=== PATIENT | male | born 1965 | race Caucasian/White ===

== ENCOUNTER 2020-02-13 14:37 | Emergency (ER) | payer OTHER, SELFPAY ==
[2020-02-13 14:42] VITALS: BP 221/108; PULSE 83; RESP 18; TEMP 37.6; O2SAT 96
--- NOTE | 2020-02-13 15:54 | DI.US.S_ITS ---
PROCEDURE: US EXTREMELY NONVASC UPPER RT INDICATIONS: RIGHT AXILLA ABSCESS TECHNIQUE: Real-time scanning was performed of the right upper arm, with image documentation. COMPARISON: None. FINDINGS: No abscess identified. Soft tissue edema noted in the region of previously drained abscess involving the right upper arm lateral and inferior to the axilla concerning for infection cellulitis. IMPRESSION: No abscess. Dictated by: Janette Garcia MD, PhD on 02/13/2020 at 16:44 Approved by: Janette Garcia MD, PhD on 02/13/2020 at 16:45
--- NOTE | 2020-02-13 16:09 | ED.SKABFB ---
HPI - Skin/Abscess/Foreign Bdy <NATE Frakn - Last Filed: 02/13/20 18:40> General Chief complaint: Skin/Abscess/Foreign Body Stated complaint: Growth under his right armpit Time Seen by Provider: 02/13/20 15:16 Source: patient Mode of arrival: Ambulatory History of Present Illness HPI narrative: 54 year old male with a history of hypertension and renal calculi (also states ?my temperature is always 100F I have had so many tests done but its always been that way) presents emergency department complaining of an abscess to right axillary area. He states this started about 4-5 days ago, he has been trying to pop the area in drain it without success. A month or so ago he had an abscess that developed in the area, he was treated by Dermatology with an I & D. Patient denies any other symptoms such as fevers, chills, nausea, vomiting, diarrhea, chest pain, shortness of breath, or any other concerns. Patient denies taking any blood thinners. He states he was told to be seen at the [place] but does not want to drive that far. Patient states he was recently taking antibiotics for his foot, he reports that this started when he was taking antibiotics in significantly worsened once the prescription was finished 2-3 days ago. Patient states his blood pressure is usually high , he is due for his blood pressure medication at the time. Related Data Home Medications Medication Instructions Recorded Confirmed amlodipine 10 mg PO DAILY 02/13/20 02/13/20 atorvastatin 40 mg PO BEDTIME 02/13/20 02/13/20 duloxetine 60 mg PO BID 02/13/20 02/13/20 hydrochlorothiazide 25 mg PO BID 02/13/20 02/13/20 omeprazole 20 mg PO BID 02/13/20 02/13/20 oxycodone-acetaminophen [Percocet] 1 tab PO Q4-6H PRN 02/13/20 02/13/20 Previous Rx's Medication Instructions Recorded doxycycline hyclate 100 mg PO BID 7 Days #14 cap 02/13/20 Allergies Allergy/AdvReac Type Severity Reaction Status Date / Time Penicillins Allergy Severe Anaphylaxis Verified 02/13/20 14:51 Review of Systems <NATE Frank - Last Filed: 02/13/20 18:40> Review of Systems Narrative: REVIEW OF SYSTEMS: GENERAL: Denies fever or chills. HENT: Denies head trauma. EYE: Denies double vision or vision loss. CARDIOVASCULAR: Denies syncope. MUSCULOSKELETAL: Denies weakness, or deformities. INTEGUMENTARY: Complains of abscess to right axillary area, see HPI. NEURO: Denies numbness or tingling. Patient History <NATE Frank - Last Filed: 02/13/20 18:40> Medical History Hypertension (Acute) Social History Smoking Status: Never smoker Smoking Status: Never smoker alcohol intake frequency: 0-2 drinks per day Substance Use Type: does not use Exam <NATE Frank - Last Filed: 02/13/20 18:40> Initial Vital Signs Initial Vital Signs: Vital Signs Temperature 99.6 F 02/13/20 14:42 Pulse Rate 83 02/13/20 14:42 Respiratory Rate 18 02/13/20 14:42 Blood Pressure 221/108 H 02/13/20 14:42 Pulse Oximetry 96 02/13/20 14:42 PHYSICAL EXAMINATION: GENERAL: Well groomed, alert, and cooperative. Answers questions promptly and appropriately. Vital signs noted. HENT: Normocephalic, atraumatic. RESPIRATORY: Normal respiratory rate, trachea midline, airway patent. No stridor, nasal flaring or accessory muscle use. MUSCULOSKELETAL: Normal gait and coordination. Equal tone and mass bilaterally. EXTREMITIES: CMS intact. Moves all extremities. SKIN: Warm, dry, soft, appropriate color for ethnicity. There is a large area of induration approximately 10 cm x 8 cm noted to right axillary area, increased temp, tenderness, and erythema. NEURO: Alert and Oriented X 3. Good coordination. PSYCH: Appropriate affect and mood. <Jarrod Crump MD - Last Filed: 02/13/20 19:42> Initial Vital Signs Initial Vital Signs: Vital Signs Temperature 99.6 F 02/13/20 14:42 Pulse Rate 83 02/13/20 14:42 Respiratory Rate 18 02/13/20 14:42 Blood Pressure 221/108 H 02/13/20 14:42 Pulse Oximetry 96 02/13/20 14:42 Course <NATE Frank - Last Filed: 02/13/20 18:40> Course Course Narrative: Ultrasound performed to assess extent of abscess. No abscess visualized. This medication given in the emergency department. Orders Ordered: ED Orders 02/13/20 15:54 US extremity nonvasc upper rt Stat Discontinued Medications Doxycycline Hyclate (Vibramycin) 100 mg PO NOW ONE Stop: 02/13/20 17:03 Last Admin: 02/13/20 17:06 Dose: 100 mg Documented by: COLIN Vital Signs Vital signs: Vital Signs - 8 hr 02/13/20 14:42 02/13/20 17:09 02/13/20 17:38 Temperature 99.6 F Pulse Rate 83 78 Respiratory Rate 18 18 Blood Pressure 221/108 H Blood Pressure [Left Arm] 200/106 H 207/108 H Pulse Oximetry 96 97 02/13/20 17:56 Temperature Pulse Rate Respiratory Rate Blood Pressure 193/104 H Blood Pressure [Left Arm] Pulse Oximetry <Jarrod Crump MD - Last Filed: 02/13/20 19:42> Orders Ordered: ED Orders 02/13/20 15:54 US extremity nonvasc upper rt Stat Discontinued Medications Doxycycline Hyclate (Vibramycin) 100 mg PO NOW ONE Stop: 02/13/20 17:03 Last Admin: 02/13/20 17:06 Dose: 100 mg Documented by: COLIN Vital Signs Vital signs: Vital Signs - 8 hr 02/13/20 14:42 02/13/20 17:09 02/13/20 17:38 Temperature 99.6 F Pulse Rate 83 78 Respiratory Rate 18 18 Blood Pressure 221/108 H Blood Pressure [Left Arm] 200/106 H 207/108 H Pulse Oximetry 96 97 02/13/20 17:56 Temperature Pulse Rate Respiratory Rate Blood Pressure 193/104 H Blood Pressure [Left Arm] Pulse Oximetry MDM - Skin/Abscess/Foreign Bdy <NATE Frank - Last Filed: 02/13/20 18:40> Medical Records Attestation: I reviewed the patient's medical records. Lab Data Attestation: I reviewed the patient's lab results. Imaging Data Extremity x-ray #1: Radiologist's Impression: [address] [address] Ultrasound Report Signed Patient: Tera Lee#: [id number] : 1965Acct:[id number] Age/Sex: 54 / MDate of Service: 02/13/20 Loc: ED Accession Number: [id number] Procedure: US extremity nonvasc upper rt Ordering Provider: Deborah Phoenix PROCEDURE: US EXTREMELY NONVASC UPPER RT INDICATIONS: RIGHT AXILLA ABSCESS TECHNIQUE: Real-time scanning was performed of the right upper arm, with image documentation. COMPARISON: None. FINDINGS: No abscess identified. Soft tissue edema noted in the region of previously drained abscess involving the right upper arm lateral and inferior to the axilla concerning for infection cellulitis. IMPRESSION: No abscess. Dictated by: Janette Garcia MD, PhD on 02/13/2020 at 16:44 Approved by: Janette Garcia MD, PhD on 02/13/2020 at 16:45 [facility] Narrative Medical decision making narrative: 54-year-old male with a history of chronic hypertension reports emergency department for redness and swelling to right axillary area. Patient had history and previous I&D of this area. It was initially difficult to identify fluctuation due to body habitus and subcutaneous tissue. Ultrasound was performed which did not show any abscess or fluid accumulation. Due to appearance of swelling and erythema, I suspect this is most likely cellulitis. After discussion with patient, patient was given oral antibiotics. He was not tachycardic and afebrile (despite patient states that his temperature is usually 100 F). He was well-appearing and hemodynamically stable. Patient did have elevated blood pressure in the emergency department, he states his blood pressure is usually elevated, he is due for his blood pressure medications. He was not symptomatic denies any headaches or chest pain. Patient was discharged with medications as prescribed. Patient was given very strict return precautions for any new or worsening symptoms. He agreed to plan of care verbalized understanding. Discharge Plan Departure Patient Disposition: Home Clinical Impression: Cellulitis Qualifiers: Site of cellulitis: extremity Site of cellulitis of extremity: upper extremity Laterality: right Qualified Code(s): L03.113 - Cellulitis of right upper limb Discharge Date/Time: 02/13/20 17:57 Instructions: DI for Cellulitis -- Adult Activity Restrictions/Additional Instructions: Thank you for entrusting me with your care today. As discussed, there is no abscess to drain. You have an infection that is within your cells and can be treated with antibiotics. Please take these as directed. Follow-up with your primary care provider in the next week for further evaluation and discussion of continued management if symptoms continue. Return to the emergency department immediately if you develop worsening symptoms such as increased redness, increased swelling, severe pain, fevers, uncontrollable vomiting, or any other concerns. Prescriptions: New doxycycline hyclate 100 mg capsule 100 mg PO BID 7 Days Qty: 14 RF: 0 No Action atorvastatin 40 mg Tablet 40 mg PO BEDTIME RF: 0 oxycodone-acetaminophen [Percocet] 5-325 mg Tablet 1 tab PO Q4-6H PRN (Reason: Pain (Scale Score 1-3)) RF: 0 amlodipine 10 mg Tablet 10 mg PO DAILY RF: 0 omeprazole 20 mg Capsule,Delayed Release(Dr/Ec) 20 mg PO BID RF: 0 hydrochlorothiazide 25 mg Tablet 25 mg PO BID RF: 0 duloxetine 60 mg Capsule,Delayed Release(Dr/Ec) 60 mg PO BID RF: 0
[2020-02-13] MEDS: DOXYCYCLINE HYCLATE 100 MG TABLET PO (17:06)
[2020-02-13 17:09] VITALS: BP 200/106; PULSE 78; RESP 18; O2SAT 97
[2020-02-13 17:38] VITALS: BP 207/108
[2020-02-13 17:56] VITALS: BP 193/104
== END 2020-02-13 17:57 | disposition home or self-care (01) ==
PROVIDERS: Emergency Provider Nurse Practitioner
DX: L03.113 Cellulitis of right upper limb (principal); L02.411 Cutaneous abscess of right axilla; I10 Essential (primary) hypertension
CPT/HCPCS: 76882; 99283

== ENCOUNTER 2020-02-15 14:24 | Inpatient (IN) | payer OTHER, SELFPAY ==
[2020-02-15 14:29] VITALS: BP 174/89; PULSE 89; RESP 20; TEMP 36.6; O2SAT 99
--- NOTE | 2020-02-15 15:27 | ED.SKABFB ---
HPI - Skin/Abscess/Foreign Bdy <Rosalba Harkins PA-C - Last Filed: 02/15/20 21:52> General Chief complaint: Skin/Abscess/Foreign Body Stated complaint: Growth under his right armpit. Still painful Time Seen by Provider: 02/15/20 14:44 Source: patient Mode of arrival: Ambulatory History of Present Illness HPI narrative: This is a tired-appearing 54-year-old male with a history of CVA with left-sided residual deficit who presents to the emergency department due to pain, redness and increased swelling in his right axilla, worsening since his ED visit and initiation of Anribiotics 2 days ago. He says that about 10 days ago he developed a spot the size of a hansen tomato under his right armpit that was tender and painful, on Thursday his put a needle in it and tried to drain it, but that seemed to ?just piss it off? and Thursday he came to the emergency department because it was growing in size and had become more painful. He stated that he was started on antibiotics for this, because no pocket of pus was found to drain. Since that time it has continued to grow in size, he thinks that is about 3 times the size it was when he 1st noticed it 10 days ago, there is also a mass underneath the reddened skin and he says that he thinks that this mass has definitely gotten bigger even in the last 24 hours. His marked the outline of the red area last night around 5pm and it has grown outside of this in the last 18 hrs. He reports he fairly recently had a non profit financial controller drain a small abscess in the same area using a round thing that pressed in and took some skin out and then they used special q-tips to make it stop growing. He endorses some low-grade fevers for the last couple of days on and off as well as some mild generalized body aches that he has been experiencing since Thursday, 3 days ago. He denies any other symptoms. MD complaint: rash, abscess/boil and discoloration Onset (ago): day(s) (10) Location: RUE (axilla) Severity: moderate Pain Consistency: constant Relieving factors: none Exacerbating factors: other (poking it with needle to try draining) Treatments prior to arrival: attempted to drain pus at home (on thursday) Related Data Home Medications Medication Instructions Recorded Confirmed amlodipine 10 mg PO DAILY 02/13/20 02/15/20 atorvastatin 40 mg PO BEDTIME 02/13/20 02/15/20 hydrochlorothiazide 25 mg PO BID 02/13/20 02/15/20 omeprazole 20 mg PO BID 02/13/20 02/15/20 oxycodone-acetaminophen [Percocet] 1 tab PO Q4-6H PRN 02/13/20 02/15/20 colchicine 0.6 mg PO DAILY PRN 02/15/20 02/15/20 potassium citrate 20 meq PO TID PRN 02/15/20 02/15/20 Previous Rx's Medication Instructions Recorded doxycycline hyclate 100 mg PO BID 7 Days #14 cap 02/13/20 Allergies Allergy/AdvReac Type Severity Reaction Status Date / Time Penicillins Allergy Severe Anaphylaxis Verified 02/13/20 14:51 Review of Systems <Rosalba Harkins PA-C - Last Filed: 02/15/20 21:52> Review of Systems Narrative: GENERAL: Positive for intermittent low fever for 3 days, Denies chills, fatigue, malaise, sweats. HEENT: Denies sinus pain, ear pain, sore throat, difficulty swallowing, dizziness. RESPIRATORY: Denies dyspnea, cough, wheezing, hemoptysis, sputum. CARDIOVASCULAR: Denies chest pain, palpitations, orthopnea, edema, GASTROINTESTINAL: Denies nausea, vomiting, abdominal pain, diarrhea, constipation, melena. : Denies dysuria, frequency, incontinence, hematuria, urinary retention. MUSCULOSKELETAL: denies weakness, joint pain, or bony pain SKIN: Positive for pain swelling, mass and skin redness under his right arm in the axillary area that is growing in size. NEUROLOGIC: Denies weakness, headache, numbness, change in speech, confusion, seizures, incoordination. PSYCHIATRIC: No concerning psychosocial issues. 12 point review of systems is negative except for those stated above Patient History <Rosalba Harkins PA-C - Last Filed: 02/15/20 21:52> Medical History CVA (cerebral vascular accident) (Acute) Gout (Acute) Hemiparesis affecting left side as late effect of cerebrovascular accident (CVA) (Acute) Hyperlipidemia (Acute) Hypertension (Acute) Kidney stones (Acute) Obesity (BMI 30.0-34.9) (Acute) Trigeminal neuralgia (Acute) Surgical History History of excision of mass (Acute) History of excision of pilonidal cyst (Acute) History of incision and drainage (Acute) Status post gastric bypass for obesity (Acute) Family History Father Stroke Dementia Mother Cancer Social History household members: spouse Smoking Status: Never smoker Smoking Status: Never smoker alcohol intake frequency: 0-2 drinks per day Substance Use Type: does not use Exam <Rosalba Harkins PA-C - Last Filed: 02/15/20 21:52> Narrative Exam Narrative: GENERAL: 54 year old patient appears stated age. Well-nourished, obese, in mild distress. HEAD: Atraumatic. Normocephalic. EYES: Pupils equal round and reactive. Extraocular motions intact. No scleral icterus. No injection or drainage. ENT: Nose without bleeding, purulent drainage. Throat without erythema, tonsillar hypertrophy or exudate. Airway patent. NECK: Trachea midline. Non tender CARDIOVASCULAR: Regular rate and rhythm without murmurs, gallops, or rubs. RESPIRATORY: Clear to auscultation. Breath sounds equal bilaterally. No wheezes, rales, or rhonchi. GASTROINTESTINAL: Abdomen soft, non-tender, nondistended. EXTREMITIES: No edema or joint tenderness. BACK: Nontender without deformity or crepitance. No flank tenderness. NEURO: AOx3. Chronic residual neurologic deficits on the left side of his body with diminished arm use on the left, and left leg brace. SKIN: There is an area of erythema with irregular borders approximately 8 cm x 15 cm on the anterolateral chest wall just below the right axilla. There is an associated mass deep to the area of erythema that is approximately 15 cm x 8 cm x 4 cm by palpation and it is extremely tender. Initial Vital Signs Initial Vital Signs: Vital Signs Temperature 97.9 F 02/15/20 14:29 Pulse Rate 89 02/15/20 14:29 Respiratory Rate 20 02/15/20 14:29 Blood Pressure 174/89 H 02/15/20 14:29 Pulse Oximetry 99 02/15/20 14:29 <Marixa Shipley DO - Last Filed: 02/17/20 07:28> Initial Vital Signs Initial Vital Signs: Vital Signs Temperature 97.9 F 02/15/20 14:29 Pulse Rate 89 02/15/20 14:29 Respiratory Rate 20 02/15/20 14:29 Blood Pressure 174/89 H 02/15/20 14:29 Pulse Oximetry 99 02/15/20 14:29 Course <Rosalba Harkins PA-C - Last Filed: 02/15/20 21:52> Course Decision to Admit Date: 02/15/20 Decision to Admit time: 17:33 Orders Ordered: Acetaminophen (Tylenol) 975 mg PO Q8H [facility] Last Admin: 02/17/20 05:44 Dose: 975 mg Documented by: Admin: 02/16/20 20:50 Dose: 975 mg Documented by: Admin: 02/16/20 13:37 Dose: 975 mg Documented by: Admin: 02/16/20 05:35 Dose: 975 mg Documented by: Admin: 02/15/20 22:01 Dose: 975 mg Documented by: ROBERT Al Hydrox/Mg Hydrox/Simethicone (Maalox Plus) 30 ml PO Q6HR PRN PRN Reason: Dyspepsia Amlodipine Besylate (Norvasc) 10 mg PO DAILY [facility] Last Admin: 02/16/20 08:43 Dose: 10 mg Documented by: CHARLI Atorvastatin Calcium (Lipitor) 40 mg PO BEDTIME [facility] Last Admin: 02/16/20 20:43 Dose: 40 mg Documented by: Admin: 02/15/20 22:02 Dose: 40 mg Documented by: ROBERT Bisacodyl (Dulcolax) [address] DAILY PRN PRN Reason: Constipation Calcium Carbonate (Tums) 1,000 mg PO Q4HR PRN PRN Reason: Dyspepsia Docusate Sodium (Colace) 100 mg PO BID PRN PRN Reason: Constipation Hydrochlorothiazide (Hydrochlorothiazide) 25 mg PO BID [facility] Last Admin: 02/16/20 20:43 Dose: 25 mg Documented by: Admin: 02/16/20 08:43 Dose: 25 mg Documented by: CHARLI Vancomycin HCl/Dextrose (Vancomycin) 1,500 mg in 300 mls @ 200 mls/hr IV Q12H [facility] Last Infusion: 02/16/20 20:48 Dose: 100 mls/hr Documented by: Admin: 02/16/20 17:25 Dose: 100 mls/hr Documented by: Infusion: 02/16/20 13:38 Dose: 0 mls/hr Documented by: Admin: 02/16/20 05:56 Dose: 200 mls/hr Documented by: MAYI Ceftriaxone Sodium/Dextrose (Rocephin) 2 gm in 50 mls @ 100 mls/hr IV Q24H [facility] Last Infusion: 02/16/20 22:52 Dose: 0 mls/hr Documented by: Admin: 02/16/20 20:43 Dose: 100 mls/hr Documented by: ROBERT Lactated Ringer's (Lactated Ringers) 1,000 mls @ 100 mls/hr IV CONT [facility] Last Admin: 02/17/20 05:47 Dose: 100 mls/hr Documented by: Infusion: 02/17/20 05:47 Dose: 100 mls/hr Documented by: Admin: 02/16/20 22:51 Dose: 100 mls/hr Documented by: ROBERT Labetalol HCl (Trandate) 10 mg IV Q4HR PRN PRN Reason: Hypertension Melatonin (Melatonin) 6 mg PO BEDTIME [facility] Last Admin: 02/16/20 22:51 Dose: 6 mg Documented by: Admin: 02/15/20 22:50 Dose: 6 mg Documented by: ROBERT Naloxone HCl (Narcan) 0.2 mg IV Q2MIN PRN PRN Reason: Opiate Reversal Ondansetron HCl (Zofran) 4 mg IV Q8HR PRN PRN Reason: Nausea And Vomiting Oxycodone HCl (Percolone) 5 mg PO Q6HR PRN PRN Reason: Pain, Moderate (4-6) Last Admin: 02/16/20 20:42 Dose: 5 mg Documented by: Admin: 02/16/20 13:38 Dose: 5 mg Documented by: Admin: 02/16/20 05:39 Dose: 5 mg Documented by: Admin: 02/15/20 22:01 Dose: 5 mg Documented by: ROBERT Oxycodone HCl (Percolone) 10 mg PO Q6HR PRN PRN Reason: Pain, Severe (7-10) Discontinued Medications Acetaminophen (Tylenol) 650 mg PO NOW ONE Stop: 02/15/20 15:32 Last Admin: 02/15/20 16:03 Dose: Not Given Documented by: MUNIRA Allopurinol (Zyloprim) 200 mg PO DAILY CORINNA Last Admin: 02/16/20 09:09 Dose: 200 mg Documented by: CHARLI Colchicine (Colcrys) 0.6 mg PO DAILY PRN PRN Reason: Gout Enoxaparin Sodium (Lovenox) 40 mg SUBCUT NOW ONE Stop: 02/16/20 16:07 Last Admin: 02/16/20 16:48 Dose: 40 mg Documented by: ROBERT Sodium Chloride (Normal Saline 0.9%) 500 mls @ 500 mls/hr IV BOLUS ONE Stop: 02/15/20 16:35 Last Infusion: 02/15/20 17:43 Dose: 0 mls/hr Documented by: Admin: 02/15/20 16:02 Dose: 500 mls/hr Documented by: MUNIRA Vancomycin HCl/Dextrose (Vancomycin) 2,000 mg in 400 mls @ 200 mls/hr IV NOW ONE Stop: 02/15/20 20:44 Last Infusion: 02/15/20 20:55 Dose: 0 mls/hr Documented by: Infusion: 02/15/20 20:01 Dose: 200 mls/hr Documented by: Admin: 02/15/20 18:54 Dose: 200 mls/hr Documented by: MUNRIA Ceftriaxone Sodium/Dextrose (Rocephin) 2 gm in 50 mls @ 100 mls/hr IV NOW ONE Stop: 02/15/20 19:08 Last Admin: 02/16/20 00:56 Dose: 100 mls/hr Documented by: MAYI Ibuprofen (Advil) 400 mg PO NOW ONE Stop: 02/15/20 15:32 Last Admin: 02/15/20 16:03 Dose: Not Given Documented by: MUNIRA Vancomycin HCl (Vancomycin Per Pharmacy) 1 request [facility] NOW ONE Stop: 02/15/20 18:33 Last Admin: 02/15/20 19:44 Dose: Not Given Documented by: COLIN Vancomycin HCl (Vancomycin Per Pharmacy) 1 request [facility] NOW ONE Stop: 02/17/20 05:31 Vital Signs Vital signs: Vital Signs - 8 hr 02/15/20 14:29 Temperature 97.9 F Pulse Rate 89 Respiratory Rate 20 Blood Pressure 174/89 H Pulse Oximetry 99 <Marixa Shipley DO - Last Filed: 02/17/20 07:28> Orders Ordered: Acetaminophen (Tylenol) 975 mg PO Q8H [facility] Last Admin: 02/17/20 05:44 Dose: 975 mg Documented by: Admin: 02/16/20 20:50 Dose: 975 mg Documented by: Admin: 02/16/20 13:37 Dose: 975 mg Documented by: Admin: 02/16/20 05:35 Dose: 975 mg Documented by: Admin: 02/15/20 22:01 Dose: 975 mg Documented by: ROBERT Al Hydrox/Mg Hydrox/Simethicone (Maalox Plus) 30 ml PO Q6HR PRN PRN Reason: Dyspepsia Amlodipine Besylate (Norvasc) 10 mg PO DAILY [facility] Last Admin: 02/16/20 08:43 Dose: 10 mg Documented by: CHARLI Atorvastatin Calcium (Lipitor) 40 mg PO BEDTIME [facility] Last Admin: 02/16/20 20:43 Dose: 40 mg Documented by: Admin: 02/15/20 22:02 Dose: 40 mg Documented by: ROBERT Bisacodyl (Dulcolax) [address] DAILY PRN PRN Reason: Constipation Calcium Carbonate (Tums) 1,000 mg PO Q4HR PRN PRN Reason: Dyspepsia Docusate Sodium (Colace) 100 mg PO BID PRN PRN Reason: Constipation Hydrochlorothiazide (Hydrochlorothiazide) 25 mg PO BID [facility] Last Admin: 02/16/20 20:43 Dose: 25 mg Documented by: Admin: 02/16/20 08:43 Dose: 25 mg Documented by: CHARLI Vancomycin HCl/Dextrose (Vancomycin) 1,500 mg in 300 mls @ 200 mls/hr IV Q12H [facility] Last Infusion: 02/16/20 20:48 Dose: 100 mls/hr Documented by: Admin: 02/16/20 17:25 Dose: 100 mls/hr Documented by: Infusion: 02/16/20 13:38 Dose: 0 mls/hr Documented by: Admin: 02/16/20 05:56 Dose: 200 mls/hr Documented by: MAYI Ceftriaxone Sodium/Dextrose (Rocephin) 2 gm in 50 mls @ 100 mls/hr IV Q24H [facility] Last Infusion: 02/16/20 22:52 Dose: 0 mls/hr Documented by: Admin: 02/16/20 20:43 Dose: 100 mls/hr Documented by: ROBERT Lactated Ringer's (Lactated Ringers) 1,000 mls @ 100 mls/hr IV CONT [facility] Last Admin: 02/17/20 05:47 Dose: 100 mls/hr Documented by: Infusion: 02/17/20 05:47 Dose: 100 mls/hr Documented by: Admin: 02/16/20 22:51 Dose: 100 mls/hr Documented by: ROBERT Labetalol HCl (Trandate) 10 mg IV Q4HR PRN PRN Reason: Hypertension Melatonin (Melatonin) 6 mg PO BEDTIME [facility] Last Admin: 02/16/20 22:51 Dose: 6 mg Documented by: Admin: 02/15/20 22:50 Dose: 6 mg Documented by: ROBERT Naloxone HCl (Narcan) 0.2 mg IV Q2MIN PRN PRN Reason: Opiate Reversal Ondansetron HCl (Zofran) 4 mg IV Q8HR PRN PRN Reason: Nausea And Vomiting Oxycodone HCl (Percolone) 5 mg PO Q6HR PRN PRN Reason: Pain, Moderate (4-6) Last Admin: 02/16/20 20:42 Dose: 5 mg Documented by: Admin: 02/16/20 13:38 Dose: 5 mg Documented by: Admin: 02/16/20 05:39 Dose: 5 mg Documented by: Admin: 02/15/20 22:01 Dose: 5 mg Documented by: ROBERT Oxycodone HCl (Percolone) 10 mg PO Q6HR PRN PRN Reason: Pain, Severe (7-10) Discontinued Medications Acetaminophen (Tylenol) 650 mg PO NOW ONE Stop: 02/15/20 15:32 Last Admin: 02/15/20 16:03 Dose: Not Given Documented by: MUNIRA Allopurinol (Zyloprim) 200 mg PO DAILY CORIN[facility] Last Admin: 02/16/20 09:09 Dose: 200 mg Documented by: CHARLI Colchicine (Colcrys) 0.6 mg PO DAILY PRN PRN Reason: Gout Enoxaparin Sodium (Lovenox) 40 mg SUBCUT NOW ONE Stop: 02/16/20 16:07 Last Admin: 02/16/20 16:48 Dose: 40 mg Documented by: ROBERT Sodium Chloride (Normal Saline 0.9%) 500 mls @ 500 mls/hr IV BOLUS ONE Stop: 02/15/20 16:35 Last Infusion: 02/15/20 17:43 Dose: 0 mls/hr Documented by: Admin: 02/15/20 16:02 Dose: 500 mls/hr Documented by: MUNIRA Vancomycin HCl/Dextrose (Vancomycin) 2,000 mg in 400 mls @ 200 mls/hr IV NOW ONE Stop: 02/15/20 20:44 Last Infusion: 02/15/20 20:55 Dose: 0 mls/hr Documented by: Infusion: 02/15/20 20:01 Dose: 200 mls/hr Documented by: Admin: 02/15/20 18:54 Dose: 200 mls/hr Documented by: MUNIRA Ceftriaxone Sodium/Dextrose (Rocephin) 2 gm in 50 mls @ 100 mls/hr IV NOW ONE Stop: 02/15/20 19:08 Last Admin: 02/16/20 00:56 Dose: 100 mls/hr Documented by: MAYI Ibuprofen (Advil) 400 mg PO NOW ONE Stop: 02/15/20 15:32 Last Admin: 02/15/20 16:03 Dose: Not Given Documented by: MUNIRA Vancomycin HCl (Vancomycin Per Pharmacy) 1 request [facility] NOW ONE Stop: 02/15/20 18:33 Last Admin: 02/15/20 19:44 Dose: Not Given Documented by: COLIN Vancomycin [facility] ([facility]acy) [facility] ONE Stop: 02/17/20 05:31 Vital Signs Vital signs: Vital Signs - 8 hr 02/15/20 14:29 Temperature 97.9 F Pulse Rate 89 Respiratory Rate 20 Blood Pressure 174/89 H Pulse Oximetry 99 MDM - Skin/Abscess/Foreign Bdy <Rosalba Harknis PA-C - Last Filed: 02/15/20 21:52> Differential Diagnosis Differential diagnosis: Likely abscess of skin or subcutaneous tissue and cellulitis Medical Records Attestation: I reviewed the patient's medical records. Lab Data Attestation: I reviewed the patient's lab results. Result diagrams: 02/17/20 06:28 02/17/20 06:28 Labs: Lab Results 02/15/20 02/15/20 02/15/20 Range/Units 15:50 15:50 15:50 WBC 8.7 (4.5-11.0) X10^3/uL RBC 4.60 (4.5-5.9) X10^6/uL Hgb 14.1 (13.5-17.5) g/dL Hct 40.8 L (41-53) % MCV 88.8 (80-100) fL MCH 30.6 (26-34) PG MCHC 34.4 (30-36) % RDW 13.0 (11.6-14.8) % Plt Count 208 (150-400) X10^3/uL Neut % (Auto) 75.5 H (50-75) % Lymph % (Auto) 13.0 L (25-40) % Holmes % (Auto) 9.3 (3-14) % Eos % (Auto) 1.3 L (2-4) % Baso % (Auto) 0.9 (0-2) % Neut # (Auto) 6600 (0815-5910) /uL Lymph # (Auto) 1100 (0889-9383) /uL Holmes # (Auto) 800 (0-900) /uL Eos # (Auto) 100 (0-450) /uL Baso # (Auto) 100 (0-100) /uL ESR (0-15) MM/HR Sodium 139 (137-145) mmol/L Potassium 3.9 (3.4-5.1) mmol/L Chloride 101 (98-107) mmol/L Carbon Dioxide 32 (22-32) mmol/L BUN 21 H (9-20) mg/dL Creatinine 1.23 (0.66-1.25) mg/dL Estimated GFR > 60.0 (>60) mL/min BUN/Creatinine Ratio 17.1 (6-22) Glucose 104 H (70-100) mg/dL Lactate (0.7-2.1) mmol/L Uric Acid (3.5-8.5) mg/dL Calcium 9.3 (8.4-10.2) mg/dL C-Reactive Protein (<1.0) mg/dL Procalcitonin 0.07 (<0.5) ng/mL 02/15/20 02/15/20 02/15/20 Range/Units 15:50 15:50 15:50 WBC (4.5-11.0) X10^3/uL RBC (4.5-5.9) X10^6/uL Hgb (13.5-17.5) g/dL Hct (41-53) % MCV (80-100) fL MCH (26-34) PG MCHC (30-36) % RDW (11.6-14.8) % Plt Count (150-400) X10^3/uL Neut % (Auto) (50-75) % Lymph % (Auto) (25-40) % Holmes % (Auto) (3-14) % Eos % (Auto) (2-4) % Baso % (Auto) (0-2) % Neut # (Auto) (1438-0691) /uL Lymph # (Auto) (2562-2980) /uL Holmes # (Auto) (0-900) /uL Eos # (Auto) (0-450) /uL Baso # (Auto) (0-100) /uL ESR 36 H (0-15) MM/HR Sodium (137-145) mmol/L Potassium (3.4-5.1) mmol/L Chloride (98-107) mmol/L Carbon Dioxide (22-32) mmol/L BUN (9-20) mg/dL Creatinine (0.66-1.25) mg/dL Estimated GFR (>60) mL/min BUN/Creatinine Ratio (6-22) Glucose (70-100) mg/dL Lactate 0.7 (0.7-2.1) mmol/L Uric Acid (3.5-8.5) mg/dL Calcium (8.4-10.2) mg/dL C-Reactive Protein 17.3 H (<1.0) mg/dL Procalcitonin (<0.5) ng/mL 02/15/20 Range/Units 15:50 WBC (4.5-11.0) X10^3/uL RBC (4.5-5.9) X10^6/uL Hgb (13.5-17.5) g/dL Hct (41-53) % MCV (80-100) fL MCH (26-34) PG MCHC (30-36) % RDW (11.6-14.8) % Plt Count (150-400) X10^3/uL Neut % (Auto) (50-75) % Lymph % (Auto) (25-40) % Holmes % (Auto) (3-14) % Eos % (Auto) (2-4) % Baso % (Auto) (0-2) % Neut # (Auto) (4556-1583) /uL Lymph # (Auto) (0863-5862) /uL Holmes # (Auto) (0-900) /uL Eos # (Auto) (0-450) /uL Baso # (Auto) (0-100) /uL ESR (0-15) MM/HR Sodium (137-145) mmol/L Potassium (3.4-5.1) mmol/L Chloride (98-107) mmol/L Carbon Dioxide (22-32) mmol/L BUN (9-20) mg/dL Creatinine (0.66-1.25) mg/dL Estimated GFR (>60) mL/min BUN/Creatinine Ratio (6-22) Glucose (70-100) mg/dL Lactate (0.7-2.1) mmol/L Uric Acid 9.6 H (3.5-8.5) mg/dL Calcium (8.4-10.2) mg/dL C-Reactive Protein (<1.0) mg/dL Procalcitonin (<0.5) ng/mL Imaging Data CT scan - chest: Attestation: I personally reviewed and interpreted this imaging study as follows: Radiologist's Impression: [address] [address] [address] Scan Report Signed Patient: Tera LeeMR#: [id number] : 1965Acct:[id number] Age/Sex: 54 / MDate of Service: 02/15/20 Loc: ED Accession Number: [id number] Procedure: CT chest w con Ordering Provider: Rosalba Harkins P.A-C PROCEDURE: CT CHEST W CON INDICATIONS: R axillary Mass, [id number] TECHNIQUE: After the administration of intravenous contrast, 5 mm thick sections acquired from the pulmonary apices to the posterior costophrenic angles. 1 mm axial lung, 5 mm thick coronal and sagittal reformats and 7 mm axial MIP were acquired. For radiation dose reduction, the following was used: automated exposure control, adjustment of mA and/or kV according to patient size. COMPARISON: [facility], CT, CT ANGIO CHEST, 10/30/2008, 20:18. FINDINGS: Image quality: Excellent. Lungs and pleura: No acute air space opacities. There is a new 4 mm subpleural nodule within the right lower lobe laterally. There is a new no 10 mm diameter nodule within the central portion of the right lower lobe. No pleural effusions or pneumothorax. Central and peripheral airways are patent and normal in caliber. Mediastinum: Heart size is normal. There is calcification of the coronary vasculature. No pericardial effusion. No mediastinal or hilar adenopathy by size criteria. Thoracic aorta and central pulmonary arteries are normal in size. Esophagus is normal in caliber. No hiatal hernia. Bones and chest wall: No suspicious bony lesions. No vertebral body compression fractures. No axillary or supraclavicular adenopathy by size criteria. There is incompletely visualized that stranding within the right lateral chest wall spanning at least 8 cm anteroposterior, consistent with inflammation versus infection. Thyroid gland is within normal limits. Abdomen: Visualized upper abdominal solid organs appear normal. Upper abdominal bowel loops are normal in caliber. IMPRESSION: 1. New right lung nodules as described above. Initial further assessment with PET CT examination is recommended. 2. Incompletely visualized fat stranding within the right lateral axillary region, consistent with inflammation versus infection. 3. Coronary artery disease. Dictated by: Clifford Ralph M.D. on 02/15/2020 at 16:50 Approved by: Clifford Ralph M.D. on 02/15/2020 at 16:54 [facility] Narrative Medical decision making narrative: This is a slightly tired appearing obese 54-year-old with a history significant for hypertension, sleep apnea and CVA with residual left-sided deficit who presents to the emergency department with a worsening cellulitis in mass of the right axilla for which he was seen 2 days prior in the ED. Ultrasound at that time did not reveal pocket of fluid, and he was treated as an outpatient with doxycycline. Since that time his area of erythema, size of mass, and pain have increased to the point where he has significant difficulty using his right arm. He has residual left-sided deficit which makes it difficult for him to do anything with the right axillary pain and swelling. The patient's description of an ?incision and drainage? 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 Low suspicion for sepsis based on vitals/Hx/exam. Low suspicion for hidradenitis. Concern for worsening cellulitis/abscess, formation of a phlegmon, and failure of outpatient antibiotic therapy. CT scan performed today was nonspecific/did not show clear evidence of an abscess but did show an area notable for infectious changes at the location consistent with the mass and erythema in the right axilla. Spoke with hospitalist Dr. Sullivan regarding admission for inpatient antibiotics as he has failed outpatient antibiotic therapy and seems to have worsening cellulitis with an associated mass. Dr. Hendrix who agreed to accept the patient and requested initiation of antibiotic therapy after cultures were drawn with vancomycin and Rocephin as well as a repeat axillary ultrasound which was ordered in the emergency department, and possible consult to surgery. Patient was advised of the plan and in agreement, admitted to hospitalist team for further treatment with IV antibiotics and further workup as needed. <Marixa Shipley, DO - Last Filed: 02/17/20 07:28> Lab Data Attestation: I reviewed the patient's lab results. Labs: Lab Results 02/15/20 02/15/20 02/15/20 Range/Units 15:50 15:50 15:50 WBC 8.7 (4.5-11.0) X10^3/uL RBC 4.60 (4.5-5.9) X10^6/uL Hgb 14.1 (13.5-17.5) g/dL Hct 40.8 L (41-53) % MCV 88.8 (80-100) fL MCH 30.6 (26-34) PG MCHC 34.4 (30-36) % RDW 13.0 (11.6-14.8) % Plt Count 208 (150-400) X10^3/uL Neut % (Auto) 75.5 H (50-75) % Lymph % (Auto) 13.0 L (25-40) % Holmes % (Auto) 9.3 (3-14) % Eos % (Auto) 1.3 L (2-4) % Baso % (Auto) 0.9 (0-2) % Neut # (Auto) 6600 (2031-8940) /uL Lymph # (Auto) 1100 (2826-5936) /uL Holmes # (Auto) 800 (0-900) /uL Eos # (Auto) 100 (0-450) /uL Baso # (Auto) 100 (0-100) /uL ESR (0-15) MM/HR Sodium 139 (137-145) mmol/L Potassium 3.9 (3.4-5.1) mmol/L Chloride 101 (98-107) mmol/L Carbon Dioxide 32 (22-32) mmol/L BUN 21 H (9-20) mg/dL Creatinine 1.23 (0.66-1.25) mg/dL Estimated GFR > 60.0 (>60) mL/min BUN/Creatinine Ratio 17.1 (6-22) Glucose 104 H (70-100) mg/dL Lactate (0.7-2.1) mmol/L Uric Acid (3.5-8.5) mg/dL Calcium 9.3 (8.4-10.2) mg/dL C-Reactive Protein (<1.0) mg/dL Procalcitonin 0.07 (<0.5) ng/mL 02/15/20 02/15/20 02/15/20 Range/Units 15:50 15:50 15:50 WBC (4.5-11.0) X10^3/uL RBC (4.5-5.9) X10^6/uL Hgb (13.5-17.5) g/dL Hct (41-53) % MCV (80-100) fL MCH (26-34) PG MCHC (30-36) % RDW (11.6-14.8) % Plt Count (150-400) X10^3/uL Neut % (Auto) (50-75) % Lymph % (Auto) (25-40) % [place] % (Auto) (3-14) % Eos % (Auto) (2-4) % Baso % (Auto) (0-2) % Neut # (Auto) (3494-2502) /uL Lymph # (Auto) (0138-8807) /uL [place] # (Auto) (0-900) /uL Eos # (Auto) (0-450) /uL Baso # (Auto) (0-100) /uL ESR 36 H (0-15) MM/HR Sodium (137-145) mmol/L Potassium (3.4-5.1) mmol/L Chloride (98-107) mmol/L Carbon Dioxide (22-32) mmol/L BUN (9-20) mg/dL Creatinine (0.66-1.25) mg/dL Estimated GFR (>60) mL/min BUN/Creatinine Ratio (6-22) Glucose (70-100) mg/dL Lactate 0.7 (0.7-2.1) mmol/L Uric Acid (3.5-8.5) mg/dL Calcium (8.4-10.2) mg/dL C-Reactive Protein 17.3 H (<1.0) mg/dL Procalcitonin (<0.5) ng/mL 02/15/20 Range/Units 15:50 WBC (4.5-11.0) X10^3/uL RBC (4.5-5.9) X10^6/uL Hgb (13.5-17.5) g/dL Hct (41-53) % MCV (80-100) fL MCH (26-34) PG MCHC (30-36) % RDW (11.6-14.8) % Plt Count (150-400) X10^3/uL Neut % (Auto) (50-75) % Lymph % (Auto) (25-40) % [place] % (Auto) (3-14) % Eos % (Auto) (2-4) % Baso % (Auto) (0-2) % Neut # (Auto) (7319-3594) /uL Lymph # (Auto) (6893-9345) /uL [place] # (Auto) (0-900) /uL Eos # (Auto) (0-450) /uL Baso # (Auto) (0-100) /uL ESR (0-15) MM/HR Sodium (137-145) mmol/L Potassium (3.4-5.1) mmol/L Chloride (98-107) mmol/L Carbon Dioxide (22-32) mmol/L BUN (9-20) mg/dL Creatinine (0.66-1.25) mg/dL Estimated GFR (>60) mL/min BUN/Creatinine Ratio (6-22) Glucose (70-100) mg/dL Lactate (0.7-2.1) mmol/L Uric Acid 9.6 H (3.5-8.5) mg/dL Calcium (8.4-10.2) mg/dL C-Reactive Protein (<1.0) mg/dL Procalcitonin (<0.5) ng/mL MDM Narrative Medical decision making narrative: Patient has a very large area of swelling with some increasing erythema and was seen here 2 days prior. His labs do not show major abnormalities he does not show any signs of sepsis but is clearly failing outpatient antibiotics and was discussed felt it would be appropriate for inpatient admission. CT shows stranding but no clear abscess he is likely developing a phlegmon with no clear abscess. Discharge Plan Departure Patient Disposition: Admitted As Inpatient Clinical Impression: Cellulitis Qualifiers: Site of cellulitis: extremity Site of cellulitis of extremity: axilla Laterality: right Qualified Code(s): L03.111 - Cellulitis of right axilla Mass in armpit Qualifiers: Laterality: right Qualified Code(s): R22.31 - Localized swelling, mass and lump, right upper limb Discharge Date/Time: 02/15/20 20:34 Admit Date/Time: 02/15/20 18:28 Admit Provider: Radha Sullivan
--- NOTE | 2020-02-15 15:30 | PC.NURSE ---
significantly large mass under skin of right axillary. Patietn reports started as a hansen size on thursday. 4x larger. Patient reports significant pain. Generalized body aches.
--- NOTE | 2020-02-15 15:31 | DI.CT.S_ITS ---
PROCEDURE: CT CHEST W CON INDICATIONS: R axillary Mass, [id number] TECHNIQUE: After the administration of intravenous contrast, 5 mm thick sections acquired from the pulmonary apices to the posterior costophrenic angles. 1 mm axial lung, 5 mm thick coronal and sagittal reformats and 7 mm axial MIP were acquired. For radiation dose reduction, the following was used: automated exposure control, adjustment of mA and/or kV according to patient size. COMPARISON: [facility], CT, CT ANGIO CHEST, 10/30/2008, 20:18. FINDINGS: Image quality: Excellent. Lungs and pleura: No acute air space opacities. There is a new 4 mm subpleural nodule within the right lower lobe laterally. There is a new no 10 mm diameter nodule within the central portion of the right lower lobe. No pleural effusions or pneumothorax. Central and peripheral airways are patent and normal in caliber. Mediastinum: Heart size is normal. There is calcification of the coronary vasculature. No pericardial effusion. No mediastinal or hilar adenopathy by size criteria. Thoracic aorta and central pulmonary arteries are normal in size. Esophagus is normal in caliber. No hiatal hernia. Bones and chest wall: No suspicious bony lesions. No vertebral body compression fractures. No axillary or supraclavicular adenopathy by size criteria. There is incompletely visualized that stranding within the right lateral chest wall spanning at least 8 cm anteroposterior, consistent with inflammation versus infection. Thyroid gland is within normal limits. Abdomen: Visualized upper abdominal solid organs appear normal. Upper abdominal bowel loops are normal in caliber. IMPRESSION: 1. New right lung nodules as described above. Initial further assessment with PET CT examination is recommended. 2. Incompletely visualized fat stranding within the right lateral axillary region, consistent with inflammation versus infection. 3. Coronary artery disease. Dictated by: Clifford Ralph M.D. on 02/15/2020 at 16:50 Approved by: Clifford Ralph M.D. on 02/15/2020 at 16:54
[2020-02-15] MEDS: SODIUM CHLORIDE 0.9% 500 ML IV (16:02)
[2020-02-15 16:06] LABS: Add Manual Diff / Slide Review NO; Basophils Absolute Auto 100 /uL (0-100); Basophils Percent Auto 0.9 % (0-2); Eosinophils Absolute Auto 100 /uL (0-450); Eosinophils Percent Auto 1.3 % (2-4); Hematocrit 40.8 % (41-53); Hemoglobin 14.1 g/dL (13.5-17.5); Lymphocytes Absolute Auto 1100 /uL (1100-4500); Mean Corpuscular HGB Conc 34.4 % (30-36); Mean Corpuscular Hemoglobin 30.6 PG (26-34); Mean Corpuscular Volume 88.8 fL (80-100); Monocytes Absolute Auto 800 /uL (0-900); Monocytes Percent Auto 9.3 % (3-14); Neutrophils Absolute Auto 6600 /uL (1500-7000); Neutrophils Percent Auto 75.5 % (50-75); Platelet Count 208 X10^3/uL (150-400); White Blood Cell Count 8.7 X10^3/uL (4.5-11.0)
[2020-02-15 16:26] LABS: BUN Creatinine Ratio 17.1 (6-22); Blood Urea Nitrogen 21 mg/dL (9-20); Calcium 9.3 mg/dL (8.4-10.2); Carbon Dioxide 32 mmol/L (22-32); Chloride 101 mmol/L (98-107); Estimated Glomerular Filt Rate > 60.0 mL/min (>60); Glucose 104 mg/dL (70-100); HEMOLYSIS 18 (0-50); Potassium 3.9 mmol/L (3.4-5.1); Sodium 139 mmol/L (137-145)
[2020-02-15 18:42] LABS: Lactate (Lactic Acid) 0.7 mmol/L (0.7-2.1)
[2020-02-15] MEDS: VANCOMYCIN 2,000 MG/400 ML PIGGYBACK 200 MG IV (18:54)
[2020-02-15 19:02] LABS: Procalcitonin 0.07 ng/mL (<0.5)
[2020-02-15 19:14] VITALS: BMI 33.5
--- NOTE | 2020-02-15 19:22 | PC.NURSE ---
This RN assumed care of patient at this time. Awaiting admit.
[2020-02-15 19:43] VITALS: BP 178/93; PULSE 80; RESP 20; O2SAT 99
[2020-02-15 20:05] VITALS: BP 172/79; PULSE 85; RESP 18; TEMP 37.3; O2SAT 98
--- NOTE | 2020-02-15 20:13 | PC.ADMIT ---
[facility] Admission Note: The patient,Tera Lee,54 y/o, was given written information regarding hospital policies, unit procedures and contact persons. Patient's smoking status: Never smoker. Vital Signs - 8 hr 02/15/20 14:29 02/15/20 19:43 Temperature 97.9 F Pulse Rate 89 80 Respiratory Rate 20 20 Blood Pressure 174/89 H Blood Pressure [Right Arm] 178/93 H Pulse Oximetry 99 99 Patient up from ED via stretcher. Patient was able to get off of the stretcher on own and ambulate to AC bed. RT arm axilla area marked for monitoring by ED staff. Patient A&O, calm and cooperative.
[2020-02-15 21:10] VITALS: O2SAT 98
[2020-02-15 21:33] LABS: Uric Acid 9.6 mg/dL (3.5-8.5)
[2020-02-15 21:35] LABS: Erythrocyte Sedimentation Rate 36 MM/HR (0-15)
[2020-02-15 21:38] LABS: C-Reactive Protein Quant 17.3 mg/dL (<1.0)
--- NOTE | 2020-02-15 21:50 | PC.NURSE ---
Addendum entered by Jayla Krause R.N. 02/15/20 23:31: Hospitalist Octavio informed pt's rocepin delayed d/t slow infusion rate required with vancomycin. NOC RN informed to have this re-timed when ready to hang. Also informed hospitalist stat ultrasound not done this evening as ordered prior to pt's arrival on floor. Addendum entered by Jayla Krause R.N. 02/15/20 23:19: Contact precautions implemented after MRSA nasal swab obtained per Mónica Cunningham. Temp 98.9 as pt c/o feeling warm and perspiring. Fan to cool pt and blankets removed. CPAP set up for sleep. Pain meds administered per emar. Original Note: Per E.R. pt only has right arm available for blood draws and iv starts. E.R. reports multiple attempts to obtain blood. Currently vancomycin is infusing to right ac @ 200 cc/hr upon pt's arrival to floor. Noted pt's face and neck are reddened and pt does c/o feeling hot. Vanco infusion turned down to 125 cc/hr and [facility] informed. Mónica Cunningham in to see patient. [facility] requests this sql report writer turn vanco down to 100 cc/hr and this was done. This accounts for delay in other antibiotics being infused. Pt has own food delivered to room and verbal order from Hospitalist pt may have heart healthy diet. Pt eats food provided by family from [employer]. One assist to ambulate to bathroom with staff. Pt has no use of left hand which is contractured s/p CVA. Has left leg brace which is off while pt in bed. Erythema outlined to right axilla and pt c/o pain with palpation. Profound erythema and edema right axilla.
[2020-02-15] MEDS: OXYCODONE IR 5 MG TABLET PO (22:01)
[2020-02-15] MEDS: ACETAMINOPHEN 325 MG TABLET 975 MG PO (22:01)
[2020-02-15] MEDS: ATORVASTATIN 20 MG TABLET 40 MG PO (22:02)
--- NOTE | 2020-02-15 22:31 | P.HP_ITS ---
History of Present Illness History of Present Illness Date Patient Seen: 02/15/20 Time Patient Seen: 21:00 Chief complaint: Growth under his right armpit. Still painful Narrative: Mr. Tera Lee is a 54-year-old male with history significant for hypertension, CVA, hyperlipidemia gout, kidney stones and trigeminal neuralgia who presents to the ER for cellulitis of the right axilla. Patient states developed a lesion about size of a Silvia approximately 10 days ago. He had had a previous lesion in the same area that was treated by Dermatology 1 month ago diagnosed with a ingrown hair and underwent incision and drainage. Reports that he thought this was the same so attempted self manipulation to express pus without success. The lesion proceeded to worsen. The patient additionally states that he had been on antibiotics for of foot infection until approximately 4 days ago after which the lesion progressed and enlarged more pain swelling and redness. He presented to the ER on 02/12 for evaluation at which time an ultrasound was obtained finding no abscess the patient was discharged to home on doxycycline only to return today with worseni ng pain redness and tenderness. The patient denies other complaints illness but notes that he has a variable temperature and at times will spike a temperature up to 101? and spontaneously resolved short time later. He has reports having had a evaluation for this with no known etiology of the cause. Reports no chills or rigors, no headache or dizziness, no nasal congestion or sore throat. He does have a persistent throat clearing that he describes as a nervous tic. He denies chest pain or palpitations, shortness of breath cough or wheezing. He has no abdominal pain and denies heartburn, nausea or vomiting. He reports no changes in bowel or bladder habits. Upon arrival to the hospital the patient is found to be 97.9, has a heart rate of 89, blood pressure 174/89, respirations of 20 saturating 99% on air. Ultrasound exam as referenced from 02/12 finding right axillary cellulitis wi thout and identified abscess. CT of the chest obtained finding right axillary chest wall stranding and incidental finding of 4 mm subpleural node lateral to the right lower lobe as well as a 10 mm lung nodule in the central right lower lobe. On laboratory analysis the patient has a normal white count with that he 2.7, hemoglobin of 14.1, hematocrit 40.8 and platelets of 208. His and electrolytes are within normal range and has a BUN of 21 and a creatinine of 1.23. His nonfasting his procalcitonin is found to be 0.07 and lactic acid 0.7. Redness is demarcated with skin marker. Blood cultures are drawn in the patient's started on vancomycin and ceftriaxone. The patient is admitted to the medicine service for progressive right axillary cellulitis failing outpatient treatment Patient History Medical History CVA (cerebral vascular accident) (Acute) Gout (Acute) Hemiparesis affecting left side as late effect of cerebrovascular accident (CVA) (Acute) Hyperlipidemia (Acute) Hypertension (Acute) Kidney stones (Acute) Obesity (BMI 30.0-34.9) (Acute) Trigeminal neuralgia (Acute) Surgical History History of excision of mass (Acute) History of excision of pilonidal cyst (Acute) History of incision and drainage (Acute) Status post gastric bypass for obesity (Acute) Family & Social History Family History (Updated 02/15/20 @ 22:47 by NATE Bowden) Father Stroke Dementia Mother Cancer Social History: household members spouse Prior Living Arrangements House Safety & Behavioral: Feels Safe in Current Yes Environment Been Physically Hurt or No Threatened By a Person Suicidal Ideation Description None Suicide Plan Description No Plan Tobacco & Substance use: Smoking Status Never smoker alcohol intake frequency 0-2 drinks per day Substance Use Type does not use Comment: The patient lives in a 5th wheel trailer with his to whom he has been for 30 years. Occupation: Unemployed Smoking: The patient has never used tobacco products. Alcohol: Past heavy period drinker, stopped 1 year ago. Substance use: Patient denies recreation pharmaceuticals herbal or cannabis products. Advanced directives: In direct discussion with the patient he states desire to be FULL CODE. He designates his to be his surrogate decision maker. Meds Home Medications and Allergies Home Medications Medication Instructions Recorded Confirmed Type amlodipine 10 mg PO DAILY 02/13/20 02/15/20 History atorvastatin 40 mg PO BEDTIME 02/13/20 02/15/20 History doxycycline hyclate 100 mg PO BID 7 Days #14 cap 02/13/20 02/15/20 Rx hydrochlorothiazide 25 mg PO BID 02/13/20 02/15/20 History omeprazole 20 mg PO BID 02/13/20 02/15/20 History oxycodone-acetaminophen [Percocet] 1 tab PO Q4-6H PRN 02/13/20 02/15/20 History colchicine 0.6 mg PO DAILY PRN 02/15/20 02/15/20 History potassium citrate 20 meq PO TID PRN 02/15/20 02/15/20 History Allergies Allergy/AdvReac Type Severity Reaction Status Date / Time Penicillins Allergy Severe Anaphylaxis Verified 02/13/20 14:51 Review of Systems Review of Systems ROS: Yes All systems reviewed with the patient and are negative except as otherwise documented Exam Vital Signs (past 8 hours): - 02/15/20 19:43 02/15/20 20:05 Temperature 99.2 F Pulse Rate 80 85 Respiratory Rate 20 18 Blood Pressure 172/79 H Blood Pressure [Right Arm] 178/93 H Pulse Oximetry 99 98 Oxygen Delivery Method Room Air Oxygen Flow Rate 0 Narrative Exam Narrative: GENERAL APPEARANCE: well developed, obese male, uncomfortable appearing but in no acute distress. HEENT: Normocephalic, PERRLA, conjunctiva clear, EOMs intact without nystagmus,mucous membranes are moist and pink without lesions or exudate. NECK/THYROID: neck supple, no JVD, no carotid bruit, no thyromegaly, trachea midline. LYMPH NODES: no cervical or supraclavicular lymphadenopathy. SKIN: [place], warm and dry, induration, swelling, redness and pain on palpation right axilla in irregular shape, with pain and induration extending anteriorly in the axilla beyond area of redness, no palpable axillary lymph nodes, numerous small xanthelasma HEART: regular rate and rhythm with occasional premature beat, S1-S2, no murmur, no rubs or gallops, brisk 2+ posterior tibial pulses, no edema LUNGS: clear to auscultation bilaterally, no coarseness crackles or wheezing, no cough present CHEST: Cellulitis right axilla extends down to the right lateral chest,symmetrical movement, no accessory muscle use, good tidal volume. ABDOMEN: Soft, round, no abdominal tenderness, no guarding or peritoneal signs, no organomegaly, no flank or suprapubic tenderness, active bowel tones. BACK: Nontender EXTREMITIES: Left hemiparesis, no deformities or joint effusions. NEUROLOGIC: AAO x4, cranial nerves II-XII grossly intact, sensation intact to light touch, hearing grossly normal to speech. PSYCH: Good eye contact, cooperative, appropriate with stable behavior Objective Labs Result Diagrams: 02/15/20 15:50 02/15/20 15:50 Labs: Laboratory Results - last 24 hr 02/15/20 02/15/20 02/15/20 15:50 15:50 15:50 WBC 8.7 RBC 4.60 Hgb 14.1 Hct 40.8 L MCV 88.8 MCH 30.6 MCHC 34.4 RDW 13.0 Plt Count 208 Neut % (Auto) 75.5 H Lymph % (Auto) 13.0 L [place] % (Auto) 9.3 Eos % (Auto) 1.3 L Baso % (Auto) 0.9 Neut # (Auto) 6600 Lymph # (Auto) 1100 [place] # (Auto) 800 Eos # (Auto) 100 Baso # (Auto) 100 ESR Sodium 139 Potassium 3.9 Chloride 101 Carbon Dioxide 32 BUN 21 H Creatinine 1.23 Estimated GFR > 60.0 BUN/Creatinine Ratio 17.1 Glucose 104 H Lactate Uric Acid Calcium 9.3 C-Reactive Protein Procalcitonin 0.07 02/15/20 02/15/20 02/15/20 15:50 15:50 15:50 WBC RBC Hgb Hct MCV MCH MCHC RDW Plt Count Neut % (Auto) Lymph % (Auto) [place] % (Auto) Eos % (Auto) Baso % (Auto) Neut # (Auto) Lymph # (Auto) [place] # (Auto) Eos # (Auto) Baso # (Auto) ESR 36 H Sodium Potassium Chloride Carbon Dioxide BUN Creatinine Estimated GFR BUN/Creatinine Ratio Glucose Lactate 0.7 Uric Acid Calcium C-Reactive Protein 17.3 H Procalcitonin 02/15/20 15:50 WBC RBC Hgb Hct MCV MCH MCHC RDW Plt Count Neut % (Auto) Lymph % (Auto) [place] % (Auto) Eos % (Auto) Baso % (Auto) Neut # (Auto) Lymph # (Auto) [place] # (Auto) Eos # (Auto) Baso # (Auto) ESR Sodium Potassium Chloride Carbon Dioxide BUN Creatinine Estimated GFR BUN/Creatinine Ratio Glucose Lactate Uric Acid 9.6 H Calcium C-Reactive Protein Procalcitonin Assessment & Plan Assessment & Plan narrative: This is a 54-year-old male patient who presents to the ER for worsening cellulitis failing outpatient antibiotic therapy with progressive redness swelling and pain. 1. Right axillary cellulitis, acute, present on admission, active. -the patient has a similar lesion 1 month ago treated by Dermatology with incisi on and drainage for an ingrown hair. Patient has had multiple skin infections involving back, foot, pilonidal cyst and multiple lesions right axilla. Patient was seen in the emergency department 02/13/2020 started on doxycycline and continued to worsen. -CT of the chest finds no lymphadenopathy, right axillary fat stranding. -patient has a normal white count at 8.7, procalcitonin of 0.07, lactic acid 0.7, a red swollen indurated lesion described in the ED is 8 cm x 15 cm x 4 cm. Blood cultures drawn. -patient started on vancomycin 2000 mg and subsequently renally dosed by pharmacy to 1500 mg IV twice daily. -patient is also started on ceftriaxone 2 g IV daily. -ordered CRP, ESR and MRSA PCR. -ordered ultrasound right axilla with inclusion of right lateral chest to evaluate for abscess. -will follow CBC in infection markers. 2. Essential hypertension, chronic, stable. -Patient is hypertensive on admission to the ER at 174/89. -will continue current regimen of amlodipine 10 mg daily and hydrochlorothiazide 25 mg twice daily. -monitor blood pressures. 3. History of CVA with left hemiparesis, chronic, stable. -patient typically mobilizes electric wheelchair but uses his right hand minute bili the controls on the left arm rest. -patient has pain with movement of the right arm related to his acute cellulitis significantly impairing his his ability for self-care. -PT and OT to consult, evaluate and treat. 4. Gout, hyperuricemia, chronic, present on admission, active -patient on hydrochlorothiazide increasing risk factor for hyperuricemia and associated pro inflammatory effect. With history of gout and takes colchicine during flares. -uric acid is added to admission labs and is 9.6. -ordered allopurinol 200 mg daily 5. Hyperlipidemia, chronic, stable -patient a small punctate xanthelasmas. -will continue patient's current dose of atorvastatin 40 mg daily at bedtime -will obtain a lipid panel. 6. Obesity, BMI of 33.5, chronic, stable. -patient is status post gastric bypass. -request dietitian consult. Isolation: Contact, screening for MRSA. VTE prophylaxis: SCDs, enoxaparin IV fluid: Saline lock Diet: Heart healthy low-sodium. Code status: FULL CODE, patient's is surrogate decision maker. Patient is admitted to the hospital for worsening cellulitis failing outpatient treatment requiring IV antibiotics. The patient is admitted as an inpatient with expected length of stay to be greater than 2 midnights. COVID-19 COVID-19 status: Not tested Scores GCS Aaliyah coma scale eye opening: Spontaneous Delta coma scale verbal response: Orientated Aaliyah coma scale motor response: Obey commands Delta coma scale total score: 15 Quality VTE Deep Vein Thrombosis/Pulmonary Embolism Present on Admission: No
[2020-02-15] MEDS: MELATONIN 3 MG TABLET 6 MG PO (22:50)
[2020-02-15 23:25] VITALS: BP 137/73; PULSE 80; RESP 18; TEMP 36.2; O2SAT 95
[2020-02-16] VITALS (10 sets, daily range): BP systolic 145–160; BP diastolic 79–98; PULSE 63–70; RESP 16–18; TEMP 36.2–36.7; O2SAT 95–98; BMI 33.5
[2020-02-16] MEDS: CEFTRIAXONE 2 GM/50 ML FROZ.PIGGY IV ×2 (00:56→20:43)
--- NOTE | 2020-02-16 02:21 | DI.US.S_ITS ---
PROCEDURE: US EXTREMELY NONVASC UPPER RT INDICATIONS: CELLULITIS, POSSIBLE ABSCESS, INCLUDE RIGHT LATERAL CHEST TECHNIQUE: Real-time scanning was performed of the bilateral chest wall, with image documentation. COMPARISON: [facility], US, US EXTREMELY NONVASC UPPER RT, 02/13/2020, 16:17. FINDINGS: Focus ultrasound examination of right lateral chest wall inferior and lateral to right axilla shows interval development of lobulated hypoechoic area with internal low-level echo and measures 1.9 x 0.7 x 1.1 cm in size. No area of internal vascularity is noted. IMPRESSION: Finding is suggestive of a 0.0 x 0.7 x 1.1 cm abscess collection in right lateral chest wall inferior to right axilla. Dictated by: Leon Diamond M.D. on 02/16/2020 at 8:40 Approved by: Leon Diamond M.D. on 02/16/2020 at 8:42
[2020-02-16] MEDS: ACETAMINOPHEN 325 MG TABLET 975 MG PO ×3 (05:35→20:50)
[2020-02-16 05:36] LABS: Add Manual Diff / Slide Review NO; Basophils Absolute Auto 0 /uL (0-100); Basophils Percent Auto 0.4 % (0-2); Eosinophils Absolute Auto 200 /uL (0-450); Eosinophils Percent Auto 2.3 % (2-4); Hematocrit 40.2 % (41-53); Hemoglobin 13.9 g/dL (13.5-17.5); Lymphocytes Absolute Auto 1600 /uL (1100-4500); Lymphocytes Percent Auto 19.1 % (25-40); Mean Corpuscular HGB Conc 34.5 % (30-36); Mean Corpuscular Hemoglobin 30.8 PG (26-34); Mean Corpuscular Volume 89.3 fL (80-100); Monocytes Absolute Auto 800 /uL (0-900); Monocytes Percent Auto 9.7 % (3-14); Neutrophils Absolute Auto 5700 /uL (1500-7000); Neutrophils Percent Auto 68.5 % (50-75); Platelet Count 203 X10^3/uL (150-400); Red Cell Distribution Width 12.7 % (11.6-14.8); White Blood Cell Count 8.3 X10^3/uL (4.5-11.0)
[2020-02-16] MEDS: OXYCODONE IR 5 MG TABLET PO ×3 (05:39→20:42)
[2020-02-16 05:46] LABS: Cholesterol 146 mg/dL (140-199); HDL Cholesterol 29 mg/dL (40-60); LDL Cholesterol Calculated 93 mg/dL (<100); Triglycerides 119 mg/dL (35-150)
[2020-02-16 05:47] LABS: Alanine Aminotransferase 13 IU/L (<50); Albumin Globulin Ratio 1.3 (1.0-2.8); Alkaline Phosphatase 78 U/L (38-126); Aspartate Aminotransferase 16 IU/L (17-59); Bilirubin Total 0.3 mg/dL (0.2-1.3); Blood Urea Nitrogen 19 mg/dL (9-20); Calcium 8.9 mg/dL (8.4-10.2); Carbon Dioxide 29 mmol/L (22-32); Chloride 101 mmol/L (98-107); Estimated Glomerular Filt Rate > 60.0 mL/min (>60); Globulin 3.1 g/dL (1.7-4.1); Glucose 108 mg/dL (70-100); HEMOLYSIS < 15 (0-50); Potassium 3.7 mmol/L (3.4-5.1); Sodium 139 mmol/L (137-145); Total Protein 7.1 g/dL (6.3-8.2)
[2020-02-16] MEDS: VANCOMYCIN 1,500 MG/300 ML FROZ.PIGGY 200 MG IV (05:56)
[2020-02-16] MEDS: hydroCHLOROthiazide 25 MG TABLET PO ×2 (08:43→20:43)
[2020-02-16] MEDS: AMLODIPINE 5 MG TABLET 10 MG PO (08:43)
[2020-02-16] MEDS: allopurinoL 100 MG TABLET 200 MG PO (09:09)
--- NOTE | 2020-02-16 09:20 | PT.IIE ---
Current Diagnoses Cellulitis of right axilla (02/15/20) Surgical History (Last Reviewed 02/15/20 @ 22:46 by NATE Bowden) History of excision of mass (Acute) History of excision of pilonidal cyst (Acute) History of incision and drainage (Acute) Status post gastric bypass for obesity (Acute) Medical History (Last Reviewed 02/15/20 @ 22:46 by NATE Bowden) CVA (cerebral vascular accident) (Acute) Gout (Acute) Hemiparesis affecting left side as late effect of cerebrovascular accident (CVA) (Acute) Hyperlipidemia (Acute) Hypertension (Acute) Kidney stones (Acute) Obesity (BMI 30.0-34.9) (Acute) Trigeminal neuralgia (Acute) Physical Therapy Inpatient Evaluation/Re-Eval M1 PT/OT-IP Prior Functional Status Start: 02/16/20 12:46 Freq: NEEDED Status: Active Protocol: Document 02/16/20 09:20 AB (Rec: 02/16/20 13:11 AB [id number]) Medical Review Prior Functional Status Medical History Reviewed Yes Communication able to make needs known Mobility and Gait pt stated that he is modified independent with all mobilities and ambulation using a forearm crutch and L AFO but occasionally without AD. stated that he is able to ambulate short distance without his forearm crutch as long as he has his L AFO. pt uses his power w/c for outdoor mobility Social History Household Members spouse Living Arrangements Mobile home Number of Floors (Floors) One Floor Number of Stairs To Enter/Railing? ramp to enter pt lives in a 5th wheel trailer Home Environment Standard Height Toilet,Tub/ Shower Home Equipment Crutches,Power Wheelchair/ Scooter,Shower Seat without Backrest,Hand Held Shower,Grab Bars Near Toilet,Grab Bars In Shower Additional Social History Comment pt has an adjustable bed at home M2 PT-IP Current Condition Start: 02/16/20 12:46 Freq: NEEDED Status: Active Protocol: Document 02/16/20 09:20 AB (Rec: 02/16/20 13:11 AB [id number]) Physical Therapy Current Condition Current Condition Evaluation Date 02/16/20 Treatment Diagnosis R axilla cellulitis; difficulty in walking Onset Date 02/15/20 Precautions Brace L AFO M3 PT-IP Subjective Start: 02/16/20 12:46 Freq: NEEDED Status: Active Protocol: Document 02/16/20 09:20 AB (Rec: 02/16/20 13:11 AB [id number]) Subjective Physical Therapy Visit Type Type Initial Evaluation Visit Start Time 09:20 Visit Stop Time 10:00 Total Visit Minutes 40 Number of ARCHITECTURAL RENDERER Visits 0 Physical Therapy Visit Comments Patient Comments pt agreed to do PT Therapy Pain Assessment Pain When Pain Assessed At Rest Pain Present Pain Present Pain Reported Location right armpit Intensity 7 Scale Used increase to 10/10 with movement Pain Management Techniques Re-positioning,Timing of Activity with Medications M4 PT-IP Mobility and Gait Start: 02/16/20 12:46 Freq: NEEDED Status: Active Protocol: Document 02/16/20 09:20 AB (Rec: 02/16/20 13:11 AB [id number]) PT-Bed Mobility Assessment Supine to Sit Supine to Sit Standby Assistance,Head of Bed Elevated Sit to Supine Sit to Supine Standby Assistance,Head of Bed Elevated Scooting Scooting to Edge of Bed Standby Assistance PT-Transfer Assessment Sit to and From Stand Sit to and from Stand Standby Assistance,1 Person Assistance,Use of Upper Extremities Equipment Transfer Assistive Device None,Gait Belt Orthotic/Prosthetic Devices or Brace: Yes Transfers Transfer Destination Bed,Chair,Toilet Transfer Technique ambulated without AD Transfer Ability Level of Assist Contact Guard Assistance,1 Person Assistance,Use of Upper Extremities Comments Mobility Comments pt completed bed mobility SBA with HOB elevated. completed sit to stand SBA and step transfer to the chair without AD. pt was able to put his AFO on by himself. ambulated in room 30 ft CGA without AD. pt sat on the chair and requested to use the toilet and ambulated to the toilet without AD CGA. Pt ambulated to the sink CGA without AD and was able to maintain standing SBA while doing grooming. pt ambulated back to the chair without AD. pt requested to go back to bed and transfered without AD SBA. positioned pt on bed. call light and table placed within reach. Gait Assessment Gait Gait Assistance Required: Contact Guard Assist,1 Person Assist Distance (Feet) 30 Able to Maintain Weight Bearing Status Yes During Gait Assistive Devices Assistive Device None,Gait Belt Orthotic/Prosthetic Devices or Brace: Yes Gait Deviations General Gait Pattern Ataxic,Decreased Stride Length ,Decreased Feet Clearance,Step -to Gait Factors Limiting Gait Function Factors Limiting Gait Function Decreased Activity Tolerance, Decreased Strength,Limited Range of Motion,Pain,Poor Balance,Poor Safety Awareness PT-Balance Assessment Sitting Balance and Reactions Static Sitting Balance Ability Good Dynamic Sitting Balance Ability Good Standing Balance and Reactions Static Standing Balance Ability Fair Dynamic Standing Balance Ability Fair Device Used without AD M5 PT-IP Objective Assessments Start: 02/16/20 12:46 Freq: NEEDED Status: Active Protocol: Document 02/16/20 09:20 AB (Rec: 02/16/20 13:11 [id number]) Orientation Orientation/Cognition Level of Alertness Alert Orientation Name,Age,Birthday,Month,Date, Year,Day of Week,Place, Situation Language Function Ability No Deficits Noted Safety Awareness Decreased Safety Awareness Gross Range of Motion Lower Extremity ROM Assessment Within Functional Limits Strength Lower Extremity Strength Assessment Left Impaired Hip 3+/5 Knee 3+/5 Ankle 0/5 Sensation Assessment Sensation Gross Sensation Left LE Impaired Muscle Tone Muscle Tone WNL Yes Muscle Tone Location Left Lower Extremity Type of Tone Hypotonicity Severity of Tone Moderate M6 PT-IP Treatment Start: 02/16/20 12:46 Freq: NEEDED Status: Active Protocol: Document 02/16/20 09:20 AB (Rec: 02/16/20 13:11 AB [id number]) Physical Therapy Treatment Education Education Provided Safety M7 PT-IP Assessment and Plan Start: 02/16/20 12:46 Freq: NEEDED Status: Active Protocol: Document 02/16/20 09:20 AB (Rec: 02/16/20 13:11 [id number]) PT Summary Assessment and Plan Potential Rehabilitation Potential Good Status of Condition at Evaluation Evolving Summary Impairments Pain,ROM,Strength,Balance, Coordination,Sensation,Tone, Cognition,Bed Mobility, Transfers,Gait,Activity Tolerance Assessment Summary pt requiring SBA to CGA with mobility and plans to go home with spouse to assist him. pt stated that he has h/o falls especially when he gets tired and with difficulty using his LLE. Pt may go home with assist and will benefit from homehealth PT. Goals Bed Mobility Goal Independent Transfer Goal Independent,Crutches Gait Goal Independent,Crutches Gait Distance 100 Days to Meet Goals 5 Frequency of Treatment Frequency Of Treatment Once a Day Treatment Plan Physical Therapy Treatment Plan Bed Mobility Training,Transfer Training,Gait Training, Therapeutic Exercise,Balance Retraining,Discharge Planning, Hot or Cold Pack,Neuromuscular Re-ed,Coordination Retraining Recommendations To Nursing Amount of Assist Needed 1 Person Assist Discharge Recommendations PT Discharge Recommendations Home with Assistance,Home Health Transportation Needs at Discharge Private Vehicle
--- NOTE | 2020-02-16 11:08 | CM.DANOTE ---
Addendum entered by Mellisa Truong R.N. 02/16/20 13:43: It is noted, per P.T. notes, that patient uses a forearm crutch, and L. AFO for baseline mobility. He also uses a power wheel-chair for long distances. Original Note: DCP: Case received, EMR reviewed and met with patient. Introduced self and role. Was able to meet with patient in his room to obtain history regarding his baseline activity status, as well as some health information. DCP assessment completed with information currently available. Patient is a 54 year old male who admitted yesterday afternoon to the care of the hospitalist team. PCP: [facility] in [place]. Patient can't remember the name. Payer: [place] [employer]. Patient came to the hospital via private vehicle secondary to a lump that he had under his armpit. Patient had sustained a lump the size of a hansen, under his right axilla, and he had tried to get his to bill it at home, but was unable. Stated that the area became reddened and he decided to come over to the ER. Patient holds current diagnosis of cellulitis. Blood cultures are pending. He also had an ultrasound of his axilla. Met with patient in his room. Stated that he is retired [employer], since 2001. He is independent. Asked him if he had a provider. 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 Stated that he used to be established at [facility] at one time, but his provider retired. Patient stated that the [place] fills his meds, and stated, he is on quite a few medications. Patient also mentioned that he had seen a telegraph dispatcher from the [place] for a similiar problem, and they had lanced area. Patient stated, he is not diabetic, but used to be. He resides in [place] with his spouse, Claudia. P: DCP to follow closely. Patient could potentially need surgery. He is currently on IV antibiotics, will also need to monitor if he will need IV therapy after hospital stay. Mellisa Truong RN/Aba Tutor
--- NOTE | 2020-02-16 16:20 | DIET.PN ---
Dietary Progress Note Assessment: 54y M admitted for axillary cellulitis on right side referred to nutrition for obesity (BMI 33.5). Pt is disabled, retired c left sided weakness s/p CVA. 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 At his heaviest, pt weighed 650#, had julian en y gastric bypass ~10y ago, his had the surgery at the same time. Both have dropped and kept off half their body weight since that time. Pts weight loss was more gradual than most bypass patients so does not have issues c excessive skin. Pt did have DM but this has gone into remission since gastric bypass. Pt experiences severe dumping syndrome with too much PO at once, mixing solids and liquids at the same time, or having high sugar consumption. 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 Pt often uses dehydrated cauliflower as flour substitute in cooking, makes bone broths regularly, and grows his own mushrooms. Pts uric acid is elevated and pt endorsed not having a grasp on what causes his gout to flare. We discussed modifications to bone broth as this seems most likely culprit. Pt previously on opiate therapy but weaned off several years ago. While he believes this is a good thing, he hurts more c mobility now. This pain along with left sided weakness from stroke make intentional physical activity difficult for him. HT: 193cm WT: 124.7kg BMI: 33.5 Labs: uric acid 9.6 H, CRP 17.3 H, HDL 29 L MNA: 14 normal nutrition [place]: 22 low risk for skin breakdown Interventions: 1. To support gout dx, educated pt on high purine foods which can increase uric acid levels, to assess which aggravate him and reduce intake of offending foods. 2. To support HDL levels, encouraged pt to increase consumption of healthy fats such as olive and avocado oils, avocado, fatty fish, unsalted nuts and seeds. 3. To support weight maintenance and loss, encouraged pt to focus as much on his own healthy eating as he does the people he cooks for. Diet Order: Heart Healthy EER: 2200kcal, 125g PRO (1g/kg post bariatric), 3.5L fluids
--- NOTE | 2020-02-16 16:21 | OT.IPNOTE ---
Checked on Pt for OT eval , and pt waiting to talk to surgeon, therefore to see pt tomorrow for OT eval.
[2020-02-16] MEDS: ENOXAPARIN 40 MG/0.4 ML SYRINGE SUBCUT (16:48)
--- NOTE | 2020-02-16 17:20 | PM.PN.1 ---
Subjective Subjective Date Patient Seen: 02/16/20 Interval history: Tera Lee is a 54-year-old male with a past medical history significant for hypertension, hyperlipidemia, CVA x3 with residual left-sided hemiparesis, gout, nephrolithiasis and trigeminal neuralgia who presented to the ED with worsening cellulitis and abscess of right axilla. The patient is resting in bed comfortably. He reports significant pain to palpation around right abscess and cellulitis. Plan to have general surgery consult for I&D of right lateral chest wall abscess. Patient has no other complaints and denies headache, chest pain, shortness of breath, abdominal pain, nausea, vomiting, fever, chills, dysuria, diarrhea or constipation. The patient is voiding and eliminating without difficulty. Exam Vital Signs (past 8 hours): - 02/16/20 12:00 02/16/20 13:00 02/16/20 15:30 Temperature 97.1 F L 98.0 F Pulse Rate 66 63 Respiratory Rate 16 16 Blood Pressure 145/79 H 149/81 H Pulse Oximetry 97 97 97 Oxygen Delivery Method Room Air Oxygen Flow Rate 0 Narrative Exam Narrative: General: Middle-aged gentleman sitting in bed and in no acute distress, well-developed, well-nourished, appropriately interactive. HEENT: Normocephalic, atraumatic. External ears without defect. Pupils equal, round, and reactive to light. Anicteric sclerae, moist conjunctivae, and no lid lag. Oropharynx free of erythema and cobble stoning with moist mucosa. Neck: Supple with full range of motion. No jugular venous distension. No bruits. No lymphadenopathy or thyromegaly. Cardiovascular: Regular rate and rhythm without murmurs, rubs, or gallops appreciated. Pulmonary: Clear to auscultation bilaterally without crackles, wheezes, or rhonchi. Normal respiratory effort with no use of accessory muscles. Abdomen: Soft, obese, bowel sounds present, nontender, nondistended. No hepatosplenomegaly or masses appreciated. Extremities: No clubbing, cyanosis, or edema. Skin: Right lateral chest wall with large abscess and surrounding cellulitis which is very painful to touch. Neurological: Cranial nerves grossly intact. Chronic left-sided hemiparesis with slight facial droop due to previous CVA. Psychiatric: Normal mood and affect. Alert and oriented to person, place, and time. Objective Labs Result Diagrams: 02/16/20 05:10 02/16/20 05:10 Labs: Laboratory Results - last 24 hr 02/15/20 02/15/20 02/15/20 15:50 15:50 15:50 WBC RBC Hgb Hct MCV MCH MCHC RDW Plt Count Neut % (Auto) Lymph % (Auto) [place] % (Auto) Eos % (Auto) Baso % (Auto) Neut # (Auto) Lymph # (Auto) [place] # (Auto) Eos # (Auto) Baso # (Auto) ESR 36 H Sodium Potassium Chloride Carbon Dioxide BUN Creatinine Estimated GFR BUN/Creatinine Ratio Glucose Lactate 0.7 Uric Acid Calcium Total Bilirubin AST ALT Alkaline Phosphatase C-Reactive Protein Total Protein Albumin Globulin Albumin/Globulin Ratio Triglycerides Cholesterol LDL Cholesterol, Calc HDL Cholesterol Procalcitonin 0.07 Nasal Screen MRSA (PCR) 02/15/20 02/15/20 02/15/20 15:50 15:50 22:45 WBC RBC Hgb Hct MCV MCH MCHC RDW Plt Count Neut % (Auto) Lymph % (Auto) [place] % (Auto) Eos % (Auto) Baso % (Auto) Neut # (Auto) Lymph # (Auto) [place] # (Auto) Eos # (Auto) Baso # (Auto) ESR Sodium Potassium Chloride Carbon Dioxide BUN Creatinine Estimated GFR BUN/Creatinine Ratio Glucose Lactate Uric Acid 9.6 H Calcium Total Bilirubin AST ALT Alkaline Phosphatase C-Reactive Protein 17.3 H Total Protein Albumin Globulin Albumin/Globulin Ratio Triglycerides Cholesterol LDL Cholesterol, Calc HDL Cholesterol Procalcitonin Nasal Screen MRSA (PCR) Negative for mrsa 02/16/20 02/16/20 02/16/20 05:10 05:10 05:10 WBC 8.3 RBC 4.50 Hgb 13.9 Hct 40.2 L MCV 89.3 MCH 30.8 MCHC 34.5 RDW 12.7 Plt Count 203 Neut % (Auto) 68.5 Lymph % (Auto) 19.1 L [place] % (Auto) 9.7 Eos % (Auto) 2.3 Baso % (Auto) 0.4 Neut # (Auto) 5700 Lymph # (Auto) 1600 [place] # (Auto) 800 Eos # (Auto) 200 Baso # (Auto) 0 ESR Sodium 139 Potassium 3.7 Chloride 101 Carbon Dioxide 29 BUN 19 Creatinine 1.12 Estimated GFR > 60.0 BUN/Creatinine Ratio 17.0 Glucose 108 H Lactate Uric Acid Calcium 8.9 Total Bilirubin 0.3 AST 16 L ALT 13 Alkaline Phosphatase 78 C-Reactive Protein Total Protein 7.1 Albumin 4.0 Globulin 3.1 Albumin/Globulin Ratio 1.3 Triglycerides 119 Cholesterol 146 LDL Cholesterol, Calc 93 HDL Cholesterol 29 L Procalcitonin Nasal Screen MRSA (PCR) Assessment & Plan Assessment & Plan narrative: Tera Lee is a 54-year-old male with a past medical history significant for hypertension, hyperlipidemia, CVA x3 with residual left-sided hemiparesis, gout, nephrolithiasis and trigeminal neuralgia who presented to the ED with worsening cellulitis and abscess of right lateral chest wall. 1. Acute right lateral chest wall abscess with surrounding cellulitis, present on admission. Active. -Patient re-presented to ED with worsening right axillary cellulitis with now abscess and failed outpatient doxycycline. The patient has had multiple skin infections involving back, foot, pilonidal cyst and multiple lesions of right axilla. Patient recently had back abscess proximal 1 month ago treated by Dermatology with incision and drainage for an ingrown hair. -CT chest demonstrated incompletely visualized fat stranding within the right lateral axillary region. -Ultrasound of right lateral chest wall demonstrated 1.9 x 0.7 x 1.1 cm lobulated hypoechoic abscess. -Initial WBC normal at 8.7, procalcitonin normal at 0.07, lactic acid normal 0.7. Blood culture x2 has no growth to date. -Continue vancomycin with dosing per pharmacist and ceftriaxone 2 g IV daily. -CRP elevated at 17.3 and ESR elevated at 36. -Continue pain control with acetaminophen 975 mg every 8 hours and oxycodone 5-10 mg every 6 hours as needed for severe pain. -Consulted general surgery, Dr. Lee, who will plan to perform I&D tomorrow. NPO midnight. 2. Hypertension, chronic, present on admission. Stable. -Initial BP elevated at 174/89 likely due to pain response. -Continue home amlodipine 10 mg daily and hydrochlorothiazide 25 mg twice daily. Continue to control pain as above. -Continue to monitor blood pressure closely. If patient's blood pressure persistently elevated despite adequate pain control may need to consider increasing hydrochlorothiazide and/or additional antihypertensive. 3. History of CVA with left hemiparesis, chronic, present on admission. Stable. -Patient typically mobilizes using electric wheelchair but uses his right hand to move the controls on the left arm rest. The patient has significant pain with movement of the right arm related to his abscess with cellulitis which has significantly impaired his ability for self-care. -Continue physical and occupational therapy evaluation and treatment. 4. Gout, chronic, present on admission. Stable. -Does not represent acute gout flare. -Uric acid elevated at 9.6. -Patient is on hydrochlorothiazide increasing risk factor for hyperuricemia and associated proinflammatory effect. Patient typically takes colchicine during acute gout flares. Patient is not on uric acid lowering medication. Patient received 1 dose of allopurinol with redness of upper chest and it is unclear if this was due to allopurinol or vancomycin. Discontinued allopurinol for now. 5. Hyperlipidemia, chronic, present on admission. Stable. -Fasting lipid panel demonstrated fair lipid control: Total cholesterol 146, trach was rides 119, LDL 93 (goal LDL < 70), HDL low at 29. -Continue home atorvastatin 40 mg daily at bedtime 6. Obesity status post gastric bypass, present on admission. Stable. -BMI of 33.5. -Consulted dietitian and we appreciate her time and recommendations Code status: FULL CODE. Patient's is surrogate decision maker. VTE prophylaxis: Enoxaparin and SCDs Disposition: Patient remains hospitalized pending surgical I&D of abscess and treatment of cellulitis. Quality VTE Deep Vein Thrombosis/Pulmonary Embolism Present on Admission: No
[2020-02-16] MEDS: VANCOMYCIN 1,500 MG/300 ML FROZ.PIGGY 100 MG IV (17:25)
--- NOTE | 2020-02-16 17:39 | P.CONS_ITS ---
History of Present Illness Consult details Date Patient Seen: 02/16/20 Time Patient Seen: 16:00 Chief complaint: Growth under his right armpit. Still painful Reason for consult: Abscess Narrative: The patient is a gentleman who several days ago had a small hansen size lump appear in his armpit. Because of past experience he had his st taik a needle in it and squeeze it which did not do anything. They repeated the process a day or 2 later and after that the area swelled up and became very painful. Patient was a diabetic in the past but had gastric bypass surgery. 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 He is able to walk but can not dorsiflex his foot well. He had no affect on the right side. The strokes were according to him related to obesity, under controlled and untreated hypertension and uncontrolled and untreated diabetes. These conditions were untreated because the patient declined the treatment offered at the time, much to his regret. Meds Home Medications and Allergies Home Medications Medication Instructions Recorded Confirmed Type amlodipine 10 mg PO DAILY 02/13/20 02/15/20 History atorvastatin 40 mg PO BEDTIME 02/13/20 02/15/20 History doxycycline hyclate 100 mg PO BID 7 Days #14 cap 02/13/20 02/15/20 Rx hydrochlorothiazide 25 mg PO BID 02/13/20 02/15/20 History omeprazole 20 mg PO BID 02/13/20 02/15/20 History oxycodone-acetaminophen [Percocet] 1 tab PO Q4-6H PRN 02/13/20 02/15/20 History colchicine 0.6 mg PO DAILY PRN 02/15/20 02/15/20 History potassium citrate 20 meq PO TID PRN 02/15/20 02/15/20 History Allergies Allergy/AdvReac Type Severity Reaction Status Date / Time Penicillins Allergy Severe Anaphylaxis Verified 02/13/20 14:51 Review of Systems Review of Systems Narrative: Patient denies breathing problems cough or cold. No chest pain. No black or bloody bowel movements. No seizures or blackouts. Exam Vital Signs (past 8 hours): - 02/16/20 12:00 02/16/20 13:00 02/16/20 15:30 Temperature 97.1 F L 98.0 F Pulse Rate 66 63 Respiratory Rate 16 16 Blood Pressure 145/79 H 149/81 H Pulse Oximetry 97 97 97 Oxygen Delivery Method Room Air Oxygen Flow Rate 0 Narrative Exam Narrative: Cooperative pleasant gentleman no apparent distress. His lungs are clear to auscultation no rales or rhonchi. Equal percussion. Heart regular rate and rhythm without murmur gallop. Abdomen is protuberant soft. Laparoscopic incisions/scars noted. No tenderness of his abdomen. Patient has an enlarged red swollen right axilla that is exquisitely tender to the slightest touch. Objective Labs Result Diagrams: 02/16/20 05:10 02/16/20 05:10 Labs: Laboratory Results - last 24 hr 02/15/20 02/15/20 02/15/20 15:50 15:50 15:50 WBC RBC Hgb Hct MCV MCH MCHC RDW Plt Count Neut % (Auto) Lymph % (Auto) [place] % (Auto) Eos % (Auto) Baso % (Auto) Neut # (Auto) Lymph # (Auto) [place] # (Auto) Eos # (Auto) Baso # (Auto) ESR 36 H Sodium Potassium Chloride Carbon Dioxide BUN Creatinine Estimated GFR BUN/Creatinine Ratio Glucose Lactate 0.7 Uric Acid Calcium Total Bilirubin AST ALT Alkaline Phosphatase C-Reactive Protein Total Protein Albumin Globulin Albumin/Globulin Ratio Triglycerides Cholesterol LDL Cholesterol, Calc HDL Cholesterol Procalcitonin 0.07 Nasal Screen MRSA (PCR) 02/15/20 02/15/20 02/15/20 15:50 15:50 22:45 WBC RBC Hgb Hct MCV MCH MCHC RDW Plt Count Neut % (Auto) Lymph % (Auto) [place] % (Auto) Eos % (Auto) Baso % (Auto) Neut # (Auto) Lymph # (Auto) [place] # (Auto) Eos # (Auto) Baso # (Auto) ESR Sodium Potassium Chloride Carbon Dioxide BUN Creatinine Estimated GFR BUN/Creatinine Ratio Glucose Lactate Uric Acid 9.6 H Calcium Total Bilirubin AST ALT Alkaline Phosphatase C-Reactive Protein 17.3 H Total Protein Albumin Globulin Albumin/Globulin Ratio Triglycerides Cholesterol LDL Cholesterol, Calc HDL Cholesterol Procalcitonin Nasal Screen MRSA (PCR) Negative for mrsa 02/16/20 02/16/20 02/16/20 05:10 05:10 05:10 WBC 8.3 RBC 4.50 Hgb 13.9 Hct 40.2 L MCV 89.3 MCH 30.8 MCHC 34.5 RDW 12.7 Plt Count 203 Neut % (Auto) 68.5 Lymph % (Auto) 19.1 L [place] % (Auto) 9.7 Eos % (Auto) 2.3 Baso % (Auto) 0.4 Neut # (Auto) 5700 Lymph # (Auto) 1600 [place] # (Auto) 800 Eos # (Auto) 200 Baso # (Auto) 0 ESR Sodium 139 Potassium 3.7 Chloride 101 Carbon Dioxide 29 BUN 19 Creatinine 1.12 Estimated GFR > 60.0 BUN/Creatinine Ratio 17.0 Glucose 108 H Lactate Uric Acid Calcium 8.9 Total Bilirubin 0.3 AST 16 L ALT 13 Alkaline Phosphatase 78 C-Reactive Protein Total Protein 7.1 Albumin 4.0 Globulin 3.1 Albumin/Globulin Ratio 1.3 Triglycerides 119 Cholesterol 146 LDL Cholesterol, Calc 93 HDL Cholesterol 29 L Procalcitonin Nasal Screen MRSA (PCR) Assessment & Plan Assessment & Plan narrative: Right axillary abscess in a patient with hypertension, reflux, history of diabetes, obesity post weight loss surgery. Unfortunately the patient has been eating all day. Plan to make him NPO and operate on him tomorrow morning. Cover testing has been ordered despite symptoms for the OR. He does not need respiratory isolation however for the testing. Is a precaution for the OR staff. I have discussed the operation. Risks of bleeding infection discussed. Recurrence discussed. Either I or Dr. Cooper will be performing the procedure. He is aware of that. COVID-19 COVID-19 status: Result pending Result date/Date tested (Pos, Neg/Pending): 02/16/20
[2020-02-16 18:02] LABS: COVID19 -Nasal RAPID Negative (Negative)
--- NOTE | 2020-02-16 18:11 | PC.NURSE ---
Addendum entered by Jayla Krause R.N. 02/16/20 23:53: Pt showered on evening shift. Back into bed and BL calf scd's in place. Maintenance fluids begun as per emar. Oxycodone for pain right axilla. Pt placed own cpap for sleep. NPO after midnight. Original Note: Pt in bed alert, awake, conversant with staff. Dr. Sullivan and Dr. Lee in to see patient @ beginning of shift. Covid-19 screen completed as ordered. Pt is standby assistance into bathroom to toilet. Weak LLE and LUE with contracted left hand, but pt is able to do for self utilizing right hand/arm and RLE. Admits to right axilla pain improved with oxycodone and tylenol. Erythema outlined and beginning to recede from outline right axilla. BL calf scd's replaced when in bed and pt sets up own cpap at bedside. 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
[2020-02-16 18:27] LABS: Hemoglobin A1C% w Est Avg Glu 5.8 % (4.0-6.0)
[2020-02-16 18:31] LABS: Procalcitonin < 0.05 ng/mL (<0.5)
[2020-02-16] MEDS: ATORVASTATIN 20 MG TABLET 40 MG PO (20:43)
[2020-02-16] MEDS: MELATONIN 3 MG TABLET 6 MG PO (22:51)
[2020-02-16] MEDS: LACTATED RINGERS 1,000 ML 100 ML IV (22:51)
--- NOTE | 2020-02-16 23:27 | PC.NURSE ---
On February 14, I went into patient's room to get his Vitals when he first arrived to his room. While I was putting the blood pressure cuff on his arn he extended his arm and rubbed up against the side of my breast. Made me feel uncomfortable. [place] it was inappropriate behavior. I did not say anything to him but like I said I felt it was very inappropriate. Might be a good idea to go in two at a time.
--- NOTE | 2020-02-16 23:30 | PC.NURSE ---
2225- Pt used call light to notify this MANAGER THERAPY that he was finished with his shower. This MANAGER THERAPY entered the room to find pt standing in his underwear by the sink putting on deodorant. Pt asked me to help dry off his back. While doing so this MANAGER THERAPY asked how is shower was. Pt responded, Almost as good as sex!. This MANAGER THERAPY did not say anything but redirected him back to bed. This MANAGER THERAPY opened the door due to being uncomfortable with earlier remark. Pt began to tell bar stories about women interested in him, and stories about being in the service and helping [employer]. The Pt asked for helping pulling up the socks on his feet. This MANAGER THERAPY said, Yes-no problem. It's hard to get your socks on after showering. The pt replied, Even sex is better when wet. This MANAGER THERAPY left the room and notified PEDRO Dickerson about inappropriate jacobsen.
[2020-02-17] VITALS (29 sets, daily range): BP systolic 136–210; BP diastolic 51–131; PULSE 57–96; RESP 10–20; TEMP 35.9–37.2; O2SAT 92–98; BMI 33.4
--- NOTE | 2020-02-17 01:07 | PC.NURSE ---
Shift note: AxOx3, can make needs known. Makes inappropriate comments at times during physical assessment. Apologized to this RN before assessment (during bedside shift report) even began for future inappropriateness. Will enter room with other staff present when possible. Lung sounds diminished in bases, denies SOB. On home CPAP therapy, no oxygen bled in. NPO at midnight for surgical treatment of right axilla abscess Hx of CVA with affected left side. Reports recent and frequent falls. Left hand without function. BP elevated, does not meet criteria for medication management at this time. Right axilla red, edematous and painful with movement, outlined and maintaining in borders. High fall risk d/t sensory deficit, hx of falls. Bed alarm on and functioning, call light in recent and demonstrated appropriate use.
[2020-02-17] MEDS: ACETAMINOPHEN 325 MG TABLET 975 MG PO ×3 (05:44→21:09)
[2020-02-17] MEDS: LACTATED RINGERS 1,000 ML 100 ML IV (05:47)
[2020-02-17 06:45] LABS: Add Manual Diff / Slide Review NO; Basophils Absolute Auto 0 /uL (0-100); Basophils Percent Auto 0.5 % (0-2); Eosinophils Absolute Auto 200 /uL (0-450); Eosinophils Percent Auto 2.3 % (2-4); Hematocrit 40.7 % (41-53); Hemoglobin 13.7 g/dL (13.5-17.5); Lymphocytes Absolute Auto 1200 /uL (1100-4500); Lymphocytes Percent Auto 15.1 % (25-40); Mean Corpuscular HGB Conc 33.8 % (30-36); Mean Corpuscular Volume 88.7 fL (80-100); Monocytes Absolute Auto 700 /uL (0-900); Monocytes Percent Auto 9.2 % (3-14); Neutrophils Absolute Auto 5700 /uL (1500-7000); Neutrophils Percent Auto 72.9 % (50-75); Platelet Count 221 X10^3/uL (150-400); Red Blood Cell Count 4.59 X10^6/uL (4.5-5.9); White Blood Cell Count 7.8 X10^3/uL (4.5-11.0)
[2020-02-17 06:49] LABS: BUN Creatinine Ratio 17.8 (6-22); Blood Urea Nitrogen 19 mg/dL (9-20); Calcium 8.9 mg/dL (8.4-10.2); Carbon Dioxide 27 mmol/L (22-32); Chloride 101 mmol/L (98-107); Estimated Glomerular Filt Rate > 60.0 mL/min (>60); Glucose 133 mg/dL (70-100); HEMOLYSIS 34 (0-50); Sodium 138 mmol/L (137-145)
[2020-02-17 06:56] LABS: Vancomycin Trough 12.2 ug/mL (10-20)
--- NOTE | 2020-02-17 07:59 | PC.NURSE ---
Addendum entered by Edwige Hopkins R.N. 02/17/20 12:36: 1200 Received patient from PACU, awake and alert. Tolerating sips of water. Administered BP medications, Lisinopril and HCTZ. Voided shortly after arrival, 350 ml. Large bulky dressing to lateral right axillae, CDI. Updated regarding plan of care, call light within reach. Received on RA, O2 sat 98%. Original Note: Day shift note: Patient to surgery at 0750, awake, alert, and calm. VSS and afebrile. Transferred to Pre op in stable condition.
[2020-02-17] MEDS: LACTATED RINGERS 1,000 ML 42 ML IV (08:00)
--- NOTE | 2020-02-17 08:07 | SUR.HOLD ---
Pt brought down to OPD. Awating surgery, no complaints at present.
--- NOTE | 2020-02-17 09:17 | PT-IP ANOTE ---
PT on hold for this morning. pt is undergoing surgery this morning.
--- NOTE | 2020-02-17 09:28 | PM.PREOP ---
Pre-operative Note COVID-19 COVID-19 status: Negative Result date/Date tested (Pos, Neg/Pending): 02/16/20 Interval Note History & Physical reviewed/Exam performed by Physician: Yes Changes to H&P: No
[2020-02-17] MEDS: VANCOMYCIN 1,500 MG/300 ML FROZ.PIGGY 100 MG IV ×2 (09:50→21:09)
--- NOTE | 2020-02-17 10:16 | PM.OP.1 ---
Operative Date/Time/Diagnoses Date of procedure: 02/17/20 Time of procedure: 10:17 Pre-op diagnosis: Right axillary abscess Post-op diagnosis: same Procedure & Clinicians Procedure: Incision and drainage of abscess Same procedure as scheduled: Yes Indications: Large axillary abscess Surgeon: Lucas Lee Click Yes if Unassisted: Yes Anesthesia Type: General Operative Notes Findings: Large abscess extending deep to the skin and subcutaneous fat, which were viable and intact Closure Type: not applicable Specimen(s): other (Cultures) Estimated Blood Loss (mL): 30 Procedure in detail: Patient was placed supine on the operating room table and underwent general LMA anesthesia. A roll was placed under his right flank any was prepped and draped in the usual fashion. Incision was made across the most indurated area of the skin and carried down through healthy appearing subcutaneous fat into an abscess cavity. Cultures were taken. The cavity was probed and loculations broken down bluntly. The wound was irrigated. Bleeding was controlled and then the wound was packed with saline gauze. Dressing was applied and the patient was awakened extubated and taken the recovery area in good condition. Complications: none Post-operative Condition: stable Disposition: PACU Plan for aftercare: IV antibiotics in patient's status
--- NOTE | 2020-02-17 10:21 | SUR.OPER ---
Supine on padded OR bed, head on pillow, arms secured on padded arm boards at <90 degrees abduction, legs uncrossed, safety belt at thigh, tape over blanket over lower legs.
[2020-02-17] MEDS: HYDROMORPHONE 2 MG INJ IV ×2 (10:45→11:02)
[2020-02-17] MEDS: OXYCODONE IR 5 MG TABLET PO (10:47)
[2020-02-17] MEDS: ONDANSETRON 4 MG/2 ML INJ IV (11:04)
[2020-02-17] MEDS: hydrOXYzine 50 MG/ML INJ 25 MG IM (11:05)
[2020-02-17] MEDS: AMLODIPINE 5 MG TABLET 10 MG PO (12:06)
[2020-02-17] MEDS: hydroCHLOROthiazide 25 MG TABLET PO ×2 (12:06→21:09)
[2020-02-17] MEDS: OXYCODONE IR 10 MG TABLET PO ×2 (13:19→21:08)
--- NOTE | 2020-02-17 15:09 | OT.IP.TRT ---
Current Diagnoses Cellulitis of right axilla (02/15/20) Surgery Performed Operation Date: 02/17/20 09:15 Actual Procedures p Incision and Drainage Axillary abscess(Right) - Lucas Lee MD Occupational Therapy Treatment Note M3 OT- IP Subjective and Pain Start: 02/17/20 15:05 Freq: Status: Active Protocol: Document 02/17/20 15:06 CGR (Rec: 02/17/20 15:09 CGR [id number]) OT- Subjective Occupational Therapy Visit Type Type Administrative Note Notes Per nursing, pt is very lethargic s/p sx today. Nursing suggested to hold off on seeing pt for OT today. Will follow up at next availability.
--- NOTE | 2020-02-17 15:25 | PT-IP ANOTE ---
pt underwent I&D of R axillary abscess this morning. checked on pt that he will not do anything today because he is hurting. informed pt that PT will then check back tomorrow. Pt stated that he is hoping to go home tomorrow. will f/u tomorrow.
--- NOTE | 2020-02-17 16:19 | P.PN_ITS ---
Subjective Subjective Date Patient Seen: 02/17/20 Interval history: Tera Lee is a 54-year-old male with a past medical history significant for hypertension, hyperlipidemia, CVA x3 with residual left-sided hemiparesis, VIANCA on CPAP, gout, nephrolithiasis and trigeminal neuralgia who presented to the ED with with worsening cellulitis and abscess of right lateral chest wall/axilla. The patient is resting in bed recovering postoperatively from I&D. He reports significant pain of right axilla, however, he just received IV pain medication and is falling asleep mid conversation. He has no other complaints and denies headache, chest pain, shortness of breath,o abdominal pain, nausea, vomiting, fever, chills, dysuria, diarrhea or constipation. The patient is voiding and eliminating without difficulty. Exam Vital Signs (past 8 hours): - 02/17/20 10:19 02/17/20 10:23 02/17/20 10:28 Temperature 98.2 F Pulse Rate 82 96 H 85 Respiratory Rate 16 10 L 16 Blood Pressure 186/105 H 192/102 H 190/106 H Pulse Oximetry 92 98 97 02/17/20 10:33 02/17/20 10:38 02/17/20 10:43 Temperature Pulse Rate 76 75 76 Respiratory Rate 13 13 12 Blood Pressure 195/113 H 205/112 H 197/112 H Pulse Oximetry 95 97 97 02/17/20 10:48 02/17/20 10:55 02/17/20 10:59 Temperature Pulse Rate 75 78 77 Respiratory Rate 12 11 L 16 Blood Pressure 210/114 H 179/106 H 185/105 H Pulse Oximetry 94 96 97 02/17/20 11:09 02/17/20 11:20 02/17/20 11:40 Temperature 97.8 F Pulse Rate 77 78 88 Respiratory Rate 12 10 L 18 Blood Pressure 200/124 H 199/120 H 188/131 H Pulse Oximetry 96 96 98 02/17/20 12:00 02/17/20 12:20 02/17/20 12:34 Temperature 97.9 F Pulse Rate 83 84 Respiratory Rate 17 Blood Pressure 183/108 H 173/109 H Pulse Oximetry 98 97 02/17/20 12:36 02/17/20 12:40 02/17/20 13:40 Temperature 98.4 F 98.6 F Pulse Rate 83 84 81 Respiratory Rate 17 16 Blood Pressure 178/97 H 173/109 H 178/97 H Pulse Oximetry 97 98 02/17/20 14:40 02/17/20 15:57 Temperature 98.6 F 98.7 F Pulse Rate 76 66 Respiratory Rate 17 16 Blood Pressure 164/95 H 161/98 H Pulse Oximetry 97 96 Oxygen Delivery Method Room Air Oxygen Flow Rate 0 Narrative Exam Narrative: General: Middle-aged gentleman sitting in bed and in no acute distress, well-developed, well-nourished, mildly somnolent but otherwise appropriately interactive. HEENT: Normocephalic, atraumatic. External ears without defect. Pupils equal, round, and reactive to light. Anicteric sclerae, moist conjunctivae, and no lid lag. Oropharynx free of erythema and cobble stoning with moist mucosa. Neck: Supple with full range of motion. Cardiovascular: Regular rate and rhythm without murmurs, rubs, or gallops appreciated. Pulmonary: Clear to auscultation bilaterally without crackles, wheezes, or rhonchi. Normal respiratory effort with no use of accessory muscles. Abdomen: Soft, obese, bowel sounds present, nontender, nondistended. No hepatosplenomegaly or masses appreciated. Extremities: No clubbing, cyanosis, or edema. Skin: Right lateral chest wall/axilla with bandage in place C/D/I. Continued tenderness to palpation in and around area. Neurological: Cranial nerves grossly intact. Chronic left-sided hemiparesis with slight facial droop due to previous CVA. Psychiatric: Normal mood and affect. Alert and oriented to person, place, and time. Objective Labs Result Diagrams: 02/17/20 06:28 02/17/20 06:28 Labs: Laboratory Results - last 24 hr 02/16/20 02/16/20 02/16/20 05:10 05:10 05:10 WBC RBC Hgb Hct MCV MCH MCHC RDW Plt Count Neut % (Auto) Lymph % (Auto) [place] % (Auto) Eos % (Auto) Baso % (Auto) Neut # (Auto) Lymph # (Auto) [place] # (Auto) Eos # (Auto) Baso # (Auto) Sodium 139 Potassium 3.7 Chloride 101 Carbon Dioxide 29 BUN 19 Creatinine 1.12 Estimated GFR > 60.0 BUN/Creatinine Ratio 17.0 Glucose 108 H Hemoglobin A1c 5.8 Calcium 8.9 Magnesium Total Bilirubin 0.3 AST 16 L ALT 13 Alkaline Phosphatase 78 Total Protein 7.1 Albumin 4.0 Globulin 3.1 Albumin/Globulin Ratio 1.3 Procalcitonin < 0.05 Vancomycin Trough COVID-19 PCR 02/16/20 02/17/20 02/17/20 17:09 06:28 06:28 WBC 7.8 RBC 4.59 Hgb 13.7 Hct 40.7 L MCV 88.7 MCH 30.0 MCHC 33.8 RDW 13.0 Plt Count 221 Neut % (Auto) 72.9 Lymph % (Auto) 15.1 L [place] % (Auto) 9.2 Eos % (Auto) 2.3 Baso % (Auto) 0.5 Neut # (Auto) 5700 Lymph # (Auto) 1200 [place] # (Auto) 700 Eos # (Auto) 200 Baso # (Auto) 0 Sodium 138 Potassium 4.0 Chloride 101 Carbon Dioxide 27 BUN 19 Creatinine 1.07 Estimated GFR > 60.0 BUN/Creatinine Ratio 17.8 Glucose 133 H Hemoglobin A1c Calcium 8.9 Magnesium 2.0 Total Bilirubin AST ALT Alkaline Phosphatase Total Protein Albumin Globulin Albumin/Globulin Ratio Procalcitonin Vancomycin Trough COVID-19 PCR Negative 02/17/20 06:28 WBC RBC Hgb Hct MCV MCH MCHC RDW Plt Count Neut % (Auto) Lymph % (Auto) [place] % (Auto) Eos % (Auto) Baso % (Auto) Neut # (Auto) Lymph # (Auto) [place] # (Auto) Eos # (Auto) Baso # (Auto) Sodium Potassium Chloride Carbon Dioxide BUN Creatinine Estimated GFR BUN/Creatinine Ratio Glucose Hemoglobin A1c Calcium Magnesium Total Bilirubin AST ALT Alkaline Phosphatase Total Protein Albumin Globulin Albumin/Globulin Ratio Procalcitonin Vancomycin Trough 12.2 COVID-19 PCR Assessment & Plan Assessment & Plan narrative: Tera Lee is a 54-year-old male with a past medical history significant for hypertension, hyperlipidemia, CVA x3 with residual left-sided hemiparesis, VIANCA on CPAP, gout, nephrolithiasis and trigeminal neuralgia who presented to the ED with worsening cellulitis and abscess of right lateral chest wall/axilla. 1. Acute right lateral chest wall/axilla abscess with surrounding cellulitis, present on admission. Active. -Patient re-presented to ED with worsening right axillary cellulitis with now abscess and failed outpatient doxycycline. The patient has had multiple skin infections involving back, foot, pilonidal cyst and multiple lesions of right axilla. Patient recently had back abscess proximal 1 month ago treated by Dermatology with incision and drainage for an ingrown hair. -CT chest demonstrated incompletely visualized fat stranding within the right lateral axillary region. -Ultrasound of right lateral chest wall demonstrated 1.9 x 0.7 x 1.1 cm lobulated hypoechoic abscess. -Initial WBC normal at 8.7, procalcitonin normal at 0.07, lactic acid normal 0.7. Blood culture x2 have no growth to date. -Continue vancomycin with dosing per pharmacist and ceftriaxone 2 g IV daily. -CRP elevated at 17.3 and ESR elevated at 36. -Continue pain control with acetaminophen 975 mg every 8 hours and oxycodone 5- 10 mg every 6 hours as needed for severe pain. -Consulted general surgery, Dr. Lee, who performed I&D. Wound cultures pending. We appreciate his time and recommendations. 2. Hypertension, chronic, present on admission. Stable. -Initial BP elevated at 174/89 likely due to pain response. -Continue home amlodipine 10 mg daily and hydrochlorothiazide 25 mg twice daily. Continue to control pain as above. -Continue to monitor blood pressure closely. If patient's blood pressure persistently elevated despite adequate pain control may need to consider increasing hydrochlorothiazide and/or additional antihypertensive. 3. History of CVA with left hemiparesis, chronic, present on admission. Stable. -Patient typically mobilizes using electric wheelchair but uses his right hand to move the controls on the left arm rest. The patient has significant pain with movement of the right arm related to his abscess with cellulitis which has significantly impaired his ability for self-care. -Continue physical and occupational therapy evaluation and treatment. 4. Gout, chronic, present on admission. Stable. -Does not represent acute gout flare. -Uric acid elevated at 9.6 possibly due to infection. -Patient is on hydrochlorothiazide which increases his risk for hyperuricemia and associated proinflammatory effect. -Continue home allopurinol 300 mg daily. 5. Hyperlipidemia, chronic, present on admission. Stable. -Fasting lipid panel demonstrated fair lipid control: Total cholesterol 146, trach was rides 119, LDL 93 (goal LDL < 70), HDL low at 29. -Continue home atorvastatin 40 mg daily at bedtime. Recommended increased atorvastatin dose to 80 mg daily at bedtime for tighter lipid control to achieve goal LDL < 70 and will defer to outpatient PCP. 6. Obesity, status post gastric bypass, present on admission. Stable. -BMI of 33.5. -Consulted dietitian and we appreciate her time and recommendations. 7. Obstructive sleep apnea on CPAP, chronic, present on admission. Stable. -Continue home CPAP while sleeping/napping. Code status: FULL CODE. Patient's is surrogate decision maker. VTE prophylaxis: Enoxaparin and SCDs Disposition: Patient likely to discharge home in 1-2 days once adequately treated for right lateral chest wall/axilla abscess with surrounding cellulitis. Quality VTE Deep Vein Thrombosis/Pulmonary Embolism Present on Admission: No
--- NOTE | 2020-02-17 17:38 | PC.NURSE ---
Pt A and O x 4, HTNsive at baseline 160's/90's, other VSS. Dressing loose and leaking serous sanguineous fluid, approx 15 mLs. Replaced outer drsg only, left guaze packing intact, with gauze 4 x 4s and abdominal pad, tape. Pt is up in room, walking to BR, voiding qs clear yellow, with +BT. Doesn't want MS 2/2 to history of using high doses and rates pain 7/10. Will take 10 mg oxycodone. Diet advanced to Heart Healthy and patient ate 100%.
[2020-02-17 17:39] LABS: Procalcitonin < 0.05 ng/mL (<0.5)
[2020-02-17] MEDS: DOCUSATE 100 MG CAPSULE PO (17:56)
[2020-02-17] MEDS: CEFTRIAXONE 2 GM/50 ML FROZ.PIGGY IV (18:02)
[2020-02-17] MEDS: MELATONIN 3 MG TABLET 6 MG PO (21:08)
--- NOTE | 2020-02-17 22:27 | PC.NURSE ---
Addendum entered by Philomena Dick R.N. 02/17/20 23:21: wrong patient; please disregard. Original Note: Pt asked that her 2300 ABO be given as late as possible so she could sleep.
[2020-02-18] VITALS: BP 147/90; PULSE 87; RESP 18; TEMP 36.5; O2SAT 98
[2020-02-18 04:00] VITALS: BP 164/96; PULSE 70; RESP 18; TEMP 36.1; O2SAT 97
[2020-02-18] MEDS: ACETAMINOPHEN 325 MG TABLET 975 MG PO ×2 (05:40→12:53)
[2020-02-18] MEDS: PANTOPRAZOLE 40 MG PACKET PO (06:24)
[2020-02-18 08:00] VITALS: BP 156/96; PULSE 60; RESP 16; TEMP 36.7; O2SAT 96
[2020-02-18] MEDS: AMLODIPINE 5 MG TABLET 10 MG PO (08:34)
[2020-02-18] MEDS: ENOXAPARIN 40 MG/0.4 ML SYRINGE SUBCUT (08:34)
[2020-02-18] MEDS: hydroCHLOROthiazide 25 MG TABLET PO (08:34)
[2020-02-18] MEDS: allopurinoL 300 MG TABLET PO (08:35)
[2020-02-18 08:53] VITALS: O2SAT 97
[2020-02-18] MEDS: OXYCODONE IR 10 MG TABLET PO (10:35)
--- NOTE | 2020-02-18 11:09 | PT.IPTN ---
Current Diagnoses Cellulitis of right axilla (02/15/20) Surgery Performed Operation Date: 02/17/20 09:15 Actual Procedures p Incision and Drainage Axillary abscess(Right) - Lucas Lee MD Physical Therapy Treatment Note M2 PT-IP Current Condition Start: 02/16/20 12:46 Freq: NEEDED Status: Active Protocol: Document 02/16/20 09:20 AB (Rec: 02/16/20 13:11 AB [id number]) Physical Therapy Current Condition Current Condition Evaluation Date 02/16/20 Treatment Diagnosis R axilla cellulitis; difficulty in walking Onset Date 02/15/20 Precautions Brace L AFO M3 PT-IP Subjective Start: 02/16/20 12:46 Freq: NEEDED Status: Active Protocol: Document 02/18/20 10:46 SP (Rec: 02/18/20 13:25 SP [id number]) Subjective Physical Therapy Visit Type Type Treatment Note Visit Start Time 10:46 Visit Stop Time 11:09 Total Visit Minutes 23 Number of GAME AUTHOR Visits 1 Physical Therapy Visit Comments Patient Comments pt agreeable to working with PT. Patient Goals To return home with family assist. Therapy Pain Assessment Pain When Pain Assessed At Rest Pain Present Pain Present Pain Reported Location right armpit Intensity 3 Scale Used pain R axilla, recovery from dressing change Pain Behaviors Facial Grimacing Pain Management Techniques Re-positioning,Timing of Activity with Medications M4 PT-IP Mobility and Gait Start: 02/16/20 12:46 Freq: NEEDED Status: Active Protocol: Document 02/18/20 10:46 SP (Rec: 02/18/20 13:25 SP [id number]) PT-Bed Mobility Assessment Supine to Sit Supine to Sit Standby Assistance,Head of Bed Elevated Sit to Supine Sit to Supine Standby Assistance Scooting Scooting to Edge of Bed Standby Assistance Scooting Up and Down in Bed Standby Assistance PT-Transfer Assessment Sit to and From Stand Sit to and from Stand Standby Assistance,1 Person Assistance,Use of Upper Extremities Equipment Transfer Assistive Device None,Gait Belt Orthotic/Prosthetic Devices or Brace: Yes Transfers Transfer Destination Bed,Chair Transfer Technique ambulated without AD Transfer Ability Level of Assist Contact Guard Assistance,1 Person Assistance,Use of Upper Extremities Comments Mobility Comments Pt was elevated supine when arrived. Pt completed supine < > sitting SBA with HOB elevated 15 deg and cued for log roll to R and use of RUE push from bed to transition to sitting, patient stated that 's how I usually do it at home but want to use little raised today for help. Sit to stand close SBA with gait belt no AD, patient able to manage underwear repositioning and step pivot transfer CGA no AD bed <> chair. Pt reported can' t get L AFO on sitting at side of bed prefer chair. Pt was able to doff/don socks and AFO himself as well as shorts, GAME AUTHOR assisted gown mgt around LUE. Pt was able to walk further distance into hallway approx 100 ft total CGA with therapist managing IV pole, no LOB self correct wt shift sway deviations, baseline. Pt requested laying back in bed when returned to room, he was able complete footwear and clothing mgt himself, CGA chair to bed. Pt's bed was armed and call light and all needs in reach. Gait Assessment Gait Gait Assistance Required: Contact Guard Assist,1 Person Assist Distance (Feet) 100 Able to Maintain Weight Bearing Status Yes During Gait Assistive Devices Assistive Device None,Gait Belt Orthotic/Prosthetic Devices or Brace: Yes Gait Deviations General Gait Pattern Ataxic,Decreased Stride Length ,Decreased Feet Clearance,Step -to Gait Factors Limiting Gait Function Factors Limiting Gait Function Decreased Activity Tolerance, Decreased Strength,Limited Range of Motion,Pain,Poor Balance,Poor Safety Awareness Comments Gait Comments See mobility comments. Stair Climbing Assessment Comments Stair Climbing Comments has ramps front enterance and in house, no need assess. PT-Balance Assessment Sitting Balance and Reactions Static Sitting Balance Ability Good Dynamic Sitting Balance Ability Good Standing Balance and Reactions Static Standing Balance Ability Fair Dynamic Standing Balance Ability Fair Device Used without AD M5 PT-IP Objective Assessments Start: 02/16/20 12:46 Freq: NEEDED Status: Active Protocol: Document 02/16/20 09:20 AB (Rec: 02/16/20 13:11 AB [id number]) Orientation Orientation/Cognition Level of Alertness Alert Orientation Name,Age,Birthday,Month,Date, Year,Day of Week,Place, Situation Language Function Ability No Deficits Noted Safety Awareness Decreased Safety Awareness Gross Range of Motion Lower Extremity ROM Assessment Within Functional Limits Strength Lower Extremity Strength Assessment Left Impaired Hip 3+/5 Knee 3+/5 Ankle 0/5 Sensation Assessment Sensation Gross Sensation Left LE Impaired Muscle Tone Muscle Tone WNL Yes Muscle Tone Location Left Lower Extremity Type of Tone Hypotonicity Severity of Tone Moderate M6 PT-IP Treatment Start: 02/16/20 12:46 Freq: NEEDED Status: Active Protocol: Document 02/16/20 09:20 AB (Rec: 02/16/20 13:11 AB [id number]) Physical Therapy Treatment Education Education Provided Safety M7 PT-IP Assessment and Plan Start: 02/16/20 12:46 Freq: NEEDED Status: Active Protocol: Document 02/18/20 10:46 SP (Rec: 02/18/20 13:25 SP [id number]) PT Summary Assessment and Plan Potential Rehabilitation Potential Good Status of Condition at Evaluation Evolving Summary Impairments Pain,ROM,Strength,Balance, Coordination,Sensation,Tone, Cognition,Bed Mobility, Transfers,Gait,Activity Tolerance Assessment Summary pt requiring SBA to CGA with mobility no AD required during treatment.. pt stated that he has h/o falls especially when he gets tired and with difficulty using his LLE. Pt may go home with assist from and will benefit from homehealth PT when medically stable. Goals Bed Mobility Goal Independent Transfer Goal Independent,Crutches Gait Goal Independent,Crutches Gait Distance 100 Days to Meet Goals 5 Frequency of Treatment Frequency Of Treatment Once a Day Treatment Plan Physical Therapy Treatment Plan Bed Mobility Training,Transfer Training,Gait Training, Therapeutic Exercise,Balance Retraining,Discharge Planning, Hot or Cold Pack,Neuromuscular Re-ed,Coordination Retraining Recommendations To Nursing Amount of Assist Needed Standby Assistance Discharge Recommendations PT Discharge Recommendations Home with Assistance,Home Health Transportation Needs at Discharge Private Vehicle
--- NOTE | 2020-02-18 12:54 | P.DS_ITS ---
History of Present Illness History of Present Illness Date Patient Seen: 02/15/20 Chief complaint: Growth under his right armpit. Still painful Narrative: Written by Albino SULLIVAN: Mr. Tera Lee is a 54-year-old male with history significant for hypertension, CVA, hyperlipidemia gout, kidney stones and trigeminal neuralgia who presents to the ER for cellulitis of the right axilla. Patient states developed a lesion about size of a Silvia approximately 10 days ago. He had had a previous lesion in the same area that was treated by Dermatology 1 month ago diagnosed with a ingrown hair and underwent incision and drainage. Reports that he thought this was the same so attempted self manipulation to express pus without success. The lesion proceeded to worsen. The patient additionally states that he had been on antibiotics for of foot infection until approximately 4 days ago after which the lesion progressed and enlarged more pain swelling and redness. He presented to the ER on 02/12 for evaluation at which time an ultrasound was obtained finding no abscess the patient was discharged to home on doxycycline only to return today with worsening pain redness and tenderness. The patient denies other complaints illness but notes that he has a variable temperature and at times will spike a temperature up to 101? and spontaneously resolved short time later. He has reports having had a evaluation for this with no known etiology of the cause. Reports no chills or rigors, no headache or dizziness, no nasal congestion or sore throat. He does have a persistent throat clearing that he describes as a nervous tic. He denies chest pain or pa lpitations, shortness of breath cough or wheezing. He has no abdominal pain and denies heartburn, nausea or vomiting. He reports no changes in bowel or bladder habits. Upon arrival to the hospital the patient is found to be 97.9, has a heart rate of 89, blood pressure 174/89, respirations of 20 saturating 99% on air. Ultrasound exam as referenced from 02/12 finding right axillary cellulitis wi thout and identified abscess. CT of the chest obtained finding right axillary chest wall stranding and incidental finding of 4 mm subpleural node lateral to the right lower lobe as well as a 10 mm lung nodule in the central right lower lobe. On laboratory analysis the patient has a normal white count with that he 2.7, hemoglobin of 14.1, hematocrit 40.8 and platelets of 208. His and electrolytes are within normal range and has a BUN of 21 and a creatinine of 1.23. His nonfasting his procalcitonin is found to be 0.07 and lactic acid 0.7. Redness is demarcated with skin marker. Blood cultures are drawn in the patient's started on vancomycin and ceftriaxone. The patient is admitted to the medicine service for progressive right axillary cellulitis failing outpatient treatment Discharge Providers Provider Date of admission: 02/15/20 18:28 Discharge Date: 02/18/20 Consults: 02/15/20 21:14 Consult to Dietitian, Adult Routine Comment: Reason For Exam: Obesity, BMI 33.5 Consult to Discharge Planning Routine Comment: Consult to Physical Therapy Evaluate & Treat Comment: History CVA, residual left weakness Physician Instructions: Evaluate and Treat 02/15/20 23:16 Consult to Occupational Therapy Evaluate & Treat Comment: S/P CVA, Lt hemiparesis, Rt axillary cellulitis Physician Instructions: Evaluate and treat 02/17/20 08:05 Consult to Respiratory Therapy Evaluate & Treat Comment: Physician Instructions: Evaluate and treat Discharge provider: Radha Sullivan DO Summary Hospital Course Discharge Diagnosis: 1. Acute right lateral chest wall/axilla abscess with surrounding cellulitis, present on admission. Resolving. 2. Hypertension, chronic, present on admission. Stable. 3. History of CVA with left hemiparesis, chronic, present on admission. Stable. 4. Gout, chronic, present on admission. Stable. 5. Hyperlipidemia, chronic, present on admission. Stable. 6. Obesity, status post gastric bypass, present on admission. Stable. 7. Obstructive sleep apnea on CPAP, chronic, present on admission. Stable. 8. Prediabetes, chronic, present on admission. Stable. Hospital Course: Tera Lee is a 54-year-old male with a past medical history significant for hypertension, hyperlipidemia, CVA x3 with residual left-sided hemiparesis, VIANCA on CPAP, gout, nephrolithiasis and trigeminal neuralgia who presented to the ED with worsening cellulitis and abscess of right lateral chest wall/axilla. 1. Acute right lateral chest wall/axilla abscess with surrounding cellulitis, present on admission. Resolving. -Patient re-presented to ED with worsening right axillary cellulitis with now abscess and failed outpatient doxycycline. The patient has had multiple skin infections involving back, foot, pilonidal cyst and multiple lesions of right axilla. Patient recently had back abscess proximal 1 month ago treated by Dermatology with incision and drainage for an ingrown hair. -CT chest demonstrated incompletely visualized fat stranding within the right lateral axillary region. -Ultrasound of right lateral chest wall demonstrated 1.9 x 0.7 x 1.1 cm lobulated hypoechoic abscess. -Initial WBC normal at 8.7, procalcitonin normal at 0.07, lactic acid normal 0.7. Blood culture x2 have no growth to date. -CRP elevated at 17.3 and ESR elevated at 36. -Continued pain control with acetaminophen 975 mg every 8 hours and oxycodone 5- 10 mg every 6 hours as needed for severe pain. -Consulted general surgery, Dr. Lee, who performed I&D. Wound cultures preliminarily growing staph aureus. Patient's will perform daily dressing and packing changes as instructed and patient to follow-up with Dr. Lee in 1-2 weeks. -Continued vancomycin with dosing per pharmacist and ceftriaxone 2 g IV daily. Discharged on Bactrim double strength twice daily for 7 days to complete total of 10 days of antibiotic treatment. 2. Hypertension, chronic, present on admission. Stable. -Initial BP elevated at 174/89 likely due to pain response. -Continued home amlodipine 10 mg daily and hydrochlorothiazide 25 mg twice daily. Continue to control pain as above. -Continued to monitor blood pressure closely. Patient's blood pressure remained slightly elevated throughout hospitalization with SBP 150-160's despite optimal pain control and recommended PCP consider starting THEODORE-inhibitor or ARB and possibly discontinuing hydrochlorothiazide as this potentially propagates hyperuricemia as below. 3. History of CVA with left hemiparesis, chronic, present on admission. Stable. -Patient typically mobilizes using electric wheelchair but uses his right hand to move the controls on the left arm rest. The patient has significant pain with movement of the right arm related to his abscess with cellulitis which has significantly impaired his ability for self-care. -Continued physical and occupational therapy evaluation and treatment. 4. Gout, chronic, present on admission. Stable. -Does not represent acute gout flare. -Uric acid elevated at 9.6 possibly higher than normal due to infection. Patient reports uric acid nephrolithiasis and gouty flare approximately 1 month ago. -Patient is on hydrochlorothiazide which increases his risk for hyperuricemia and associated pro-inflammatory effect and recommend considering discontinuing. -Continued home allopurinol 300 mg daily. 5. Hyperlipidemia, chronic, present on admission. Stable. -Fasting lipid panel demonstrated fair lipid control: Total cholesterol 146, trach was rides 119, LDL 93 (goal LDL < 70), HDL low at 29. -Continued home atorvastatin 40 mg daily at bedtime. Recommended increased atorvastatin dose to 80 mg daily at bedtime for tighter lipid control to achieve goal LDL < 70 and will defer to outpatient PCP. 6. Obesity, status post gastric bypass, present on admission. Stable. -BMI of 33.5. -Consulted dietitian and we appreciate her time and recommendations. 7. Obstructive sleep apnea on CPAP, chronic, present on admission. Stable. -Continued home CPAP while sleeping/napping. 8. Prediabetes, chronic, present on admission. Stable. -Counseled patient on and recommended lifestyle modification including: Diet and exercise. -Consulted dietitian and we appreciate her time and recommendations. Exam Vital Signs (past 8 hours): - 02/18/20 08:00 02/18/20 08:53 Temperature 98.1 F Pulse Rate 60 Respiratory Rate 16 Blood Pressure 156/96 H Pulse Oximetry 96 97 Oxygen Delivery Method Room Air Oxygen Flow Rate 0 Narrative Exam Narrative: General: Middle-aged gentleman sitting in bed and in no acute distress, well- developed, well-nourished, mildly somnolent but otherwise appropriately interactive. HEENT: Normocephalic, atraumatic. External ears without defect. Pupils equal, round, and reactive to light. Anicteric sclerae, moist conjunctivae, and no lid lag. Oropharynx free of erythema and cobble stoning with moist mucosa. Neck: Supple with full range of motion. Cardiovascular: Regular rate and rhythm without murmurs, rubs, or gallops appreciated. Pulmonary: Clear to auscultation bilaterally without crackles, wheezes, or rhonchi. Normal respiratory effort with no use of accessory muscles. Abdomen: Soft, obese, bowel sounds present, nontender, nondistended. No hepatosplenomegaly or masses appreciated. Extremities: No clubbing, cyanosis, or edema. Skin: Right lateral chest wall/axilla with bandage in place C/D/I. Continued tenderness to palpation in and around area. Neurological: Cranial nerves grossly intact. Chronic left-sided hemiparesis wit h slight facial droop due to previous CVA. Psychiatric: Normal mood and affect. Alert and oriented to person, place, and time. Objective Labs Result Diagrams: 02/17/20 06:28 02/17/20 06:28 Labs: Laboratory Results - last 24 hr 02/17/20 02/17/20 06:28 06:28 Sodium 138 Potassium 4.0 Chloride 101 Carbon Dioxide 27 BUN 19 Creatinine 1.07 Estimated GFR > 60.0 BUN/Creatinine Ratio 17.8 Glucose 133 H Calcium 8.9 Magnesium 2.0 Procalcitonin < 0.05 Discharge Plan Discharge Plan Patient Disposition: Home Health Service Discharge comment: You're being discharged home with home health for physical and occupational therapy and nursing. You had a right axillary abscess which has been incised and drained. Please continue daily dressing and packing changes as instructed and follow-up with general surgery, Dr. Lee, in the next 1-2 weeks. Please follow-up with your primary care physician at the [facility] regarding your hospitalization and recommend discussion regarding uric acid lowering medications, addition of blood pressure medication like losartan and consider increasing your atorvastatin to 80 mg daily at bedtime to better control your bad cholesterol or LDL which is 92 (goal < 70). Discharge orders & Medications Prescriptions: New sulfamethoxazole-trimethoprim [Bactrim DS] 800-160 mg tablet 1 tab PO BID Qty: 10 RF: 0 Continued atorvastatin 40 mg Tablet 40 mg PO BEDTIME RF: 0 oxycodone-acetaminophen [Percocet] 5-325 mg Tablet 1 tab PO Q4-6H PRN (Reason: Pain (Scale Score 1-3)) RF: 0 amlodipine 10 mg Tablet 10 mg PO DAILY RF: 0 omeprazole 20 mg Capsule,Delayed Release(Dr/Ec) 20 mg PO BID RF: 0 hydrochlorothiazide 25 mg Tablet 25 mg PO BID RF: 0 potassium citrate 10 mEq (1,080 mg) Tablet Extended Release 20 meq PO TID PRN (Reason: kidney stones) RF: 0 colchicine 0.6 mg Tablet 0.6 mg PO DAILY PRN (Reason: Gout) RF: 0 allopurinol 300 mg Tablet 300 mg PO DAILY RF: 0 Discontinued doxycycline hyclate 100 mg capsule 100 mg PO BID 7 Days Qty: 14 RF: 0 Follow up/Referrals: Lucas Lee MD [Physician] - 1 Week Diet/Activity/Treatments Diet: Carb-consistent/Diabetic, Low-fat and Low-sodium Activity: Activity as tolerated with physical and occupational therapy Skin/Wound/Dressing Care Dressing: Daily dressing and packing changes as instructed by surgery and nursing Visit Report/Discharge Packet Instructions: DI for Skin Abscess, DI for Incision and Drainage, Sulfamethoxazole/Trimethoprim (By mouth) Quality VTE Deep Vein Thrombosis/Pulmonary Embolism Present on Admission: No
--- NOTE | 2020-02-18 13:02 | PC.NURSE ---
Pt is dressed and ready for discharge home with Spouse. All discharge orders have been reviewed with Pt including: d/c meds, time of last dose, dressing change instructions, stroke education and follow up. Pt denies further questions and will call when spouse arrives to be taken down to pov with all belongings.
--- NOTE | 2020-02-18 14:41 | CM.DPC ---
DC Note Dr Sullivan has requested that patient DC home w/ HH RN and patient is agreeable, no HH agency preference. Placed call to [facility], [place] states they can accept [facility] but they will need to go through an authorization process during business hours before they can start care. Faxed face sheet, HH order, signed F2F, H+P, DC Summary to [facility]. P: DC home w/spouse and [facility] to follow for HH RN CARLOS Ordonez
--- NOTE | 2020-02-18 14:45 | PC.NURSE ---
Pt out via w/c by [employer] to POV with Spouse and all belongings.
== END 2020-02-18 14:46 | disposition home health service (06) | DRG 603 ==
LOC: ED 14:44 → AC 18:29
PROVIDERS: Nurse Practitioner Adult Health; Specialist; Admitting Provider Internal Medicine; Emergency Provider Student in an Organized Health Care Education/Training Program; Referring Provider Student in an Organized Health Care Education/Training Program; Visit Provider Internal Medicine
PROC: 0J960ZX Drainage of Chest Subcutaneous Tissue and Fascia, Open Approach, Diagnostic (ICD-10-PCS; principal; 2020-02-17 09:15)
DX: L03.111 Cellulitis of right axilla (principal); I69.354 Hemiplegia and hemiparesis following cerebral infarction affecting left non-dominant side; L02.213 Cutaneous abscess of chest wall; G50.0 Trigeminal neuralgia; I10 Essential (primary) hypertension; E78.5 Hyperlipidemia, unspecified; M10.9 Gout, unspecified; G47.33 Obstructive sleep apnea (adult) (pediatric); R73.03 Prediabetes; E66.9 Obesity, unspecified; Z68.33 Body mass index [BMI] 33.0-33.9, adult; Z98.84 Bariatric surgery status; Z11.59 Encounter for screening for other viral diseases; B95.62 Methicillin resistant Staphylococcus aureus infection as the cause of diseases classified elsewhere
CPT/HCPCS: 36415; 71260; 76882; 80048; 80053; 80061; 80202; 82962; 83036; 83605; 83735; 84145; 84550; 85025; 85651; 86140; 87040; 87070; 87075; 87077; 87147; 87186; 87205; 87635; 87797; 96361; 96365; 96366; 97116; 97162; 97530; 99284; J0696; J1170; J1650; J2405; J2704; J2765; J3010; J3410; Q9967

== ENCOUNTER 2020-03-18 16:22 | Emergency (ER) | payer OTHER, SELFPAY ==
[2020-03-18 16:28] VITALS: BP 193/97; PULSE 78; RESP 20; TEMP 36.5; O2SAT 97
--- NOTE | 2020-03-18 17:40 | ED_ITS ---
HPI - Skin/Abscess/Foreign Bdy General Chief complaint: Skin/Abscess/Foreign Body Stated complaint: states cellulitis under his right arm Time Seen by Provider: 03/18/20 16:57 Source: patient Mode of arrival: Ambulatory History of Present Illness HPI narrative: CC: I think I have another abscess in my right axilla. HPI: The patient is a 54-year-old male who states that he has had a previous stroke x3 which has affected his left side and caused hemiparesis. He states that approximately few weeks ago he had an abscess excised and cellulitis excised from his right axilla. Now he has developed another nodule that is tender and he is frightened that he will redevelop an abscess and cellulitis. He states that he has never been told that he had hidradenitis suppurativa. He denies any fever chills or sweats. He has had no palpitations or racing of his heart or irregular heartbeat. He denies any chest pain cough shortness of breath abdominal pain nausea or vomiting. He has had the stroke as previously noted but denies a history of asthma COPD myocardial infarction. He denies a history of diabetes mellitus but admits to hypertension. He does not smoke cigarettes drink alcohol use marijuana or use any other drugs. Related Data Home Medications Medication Instructions Recorded Confirmed amlodipine 10 mg PO DAILY 02/13/20 02/15/20 atorvastatin 40 mg PO BEDTIME 02/13/20 02/15/20 hydrochlorothiazide 25 mg PO BID 02/13/20 02/15/20 omeprazole 20 mg PO BID 02/13/20 02/15/20 oxycodone-acetaminophen [Percocet] 1 tab PO Q4-6H PRN 02/13/20 02/15/20 colchicine 0.6 mg PO DAILY PRN 02/15/20 02/15/20 potassium citrate 20 meq PO TID PRN 02/15/20 02/15/20 allopurinol 300 mg PO DAILY 02/17/20 02/17/20 Previous Rx's Medication Instructions Recorded sulfamethoxazole-trimethoprim 1 tab PO BID #10 tab 02/18/20 [Bactrim DS] doxycycline hyclate 100 mg PO BID #14 cap 03/18/20 ibuprofen 600 mg PO Q6H PRN #20 tab 03/18/20 Allergies Allergy/AdvReac Type Severity Reaction Status Date / Time Penicillins Allergy Severe Anaphylaxis Verified 02/13/20 14:51 Review of Systems Review of Systems Narrative: REVIEW OF SYSTEMS: CONSTITUTIONAL: The patient denies any fever chills or sweats. NEUROLOGICAL: He has had no significant headache. He has had a stroke with left hemiparesis. EENT: He denies any sore throat or sinus congestion CARDIO-PULMONARY: He has had no chest pain cough shortness of breath. GASTROINTESTINAL: He denies any abdominal pain nausea vomit GENITAL URINARY: He has had no urinary symptoms. Patient History Medical History CVA (cerebral vascular accident) (Acute) Gout (Acute) Hemiparesis affecting left side as late effect of cerebrovascular accident (CVA) (Acute) Hyperlipidemia (Acute) Hypertension (Acute) Kidney stones (Acute) Obesity (BMI 30.0-34.9) (Acute) Trigeminal neuralgia (Acute) Surgical History History of excision of mass (Acute) History of excision of pilonidal cyst (Acute) History of incision and drainage (Acute) Status post gastric bypass for obesity (Acute) Family History Father Stroke Dementia Mother Cancer Social History household members: spouse Smoking Status: Never smoker Smoking Status: Never smoker alcohol intake frequency: 0-2 drinks per day Substance Use Type: does not use Exam Narrative Exam Narrative: PHYSICAL EXAM: CONSTITUTIONAL: Awake, Alert, Oriented, Coherent, Cooperative in NAD. Does not appear toxic or ill. HEAD: AT/NC EENT: PERRL, FROM of eyes, no discharge, no conjunctivitis. NOSE:No epistaxis or nasal drainage MOUTH:Oral mucosa is moist and pink, posterior pharynx is without erythema or exudate. NECK: Supple, no obvious JVD, Trachea is midline without stridor, no palpable LN. SPINE: Palpationof the cervical, Thoracic, Lumbar or Sacral spine reveals no gross deformity or tenderness. No CVA tenderness. THORAX: No deformity, retractions, chest wall tenderness. LUNGS: Clear, symmetrical breath sounds without respiratory distress. HEART: Normal heart tones, regular rhythm and rate without murmur. ABDOMEN: Soft, non-tender, without guarding, rebound, rigidity or palpable mass. EXTREMITIES: In the patient's right axilla he has a 1-1/2 cm long axis diameter elliptical phlegmon that is erythematous tender but nonfluctuant and no surrounding cellulitis. There were no other axillary lymph nodes palpable. SKIN: No rash, bruising, petechiae or purpura. NEURO: Awake, alert, oriented, conversive, cranial nerves II-XII are symmetrical , moves all 4 extremities and is ambulatory. The patient has ataxic movement of his left arm with a contracted left hand and fist. The patient has paresis of the left leg with an orthotics splint to be able to walk. This is consistent with his left hemiparesis from his multiple strokes. MENTAL HEALTH: Does not appear anxious or depressed. Initial Vital Signs Initial Vital Signs: Vital Signs Temperature 97.7 F 03/18/20 16:28 Pulse Rate 78 03/18/20 16:28 Respiratory Rate 20 03/18/20 16:28 Blood Pressure 193/97 H 03/18/20 16:28 Pulse Oximetry 97 03/18/20 16:28 Course Orders Ordered: Discontinued Medications Doxycycline Hyclate (Vibramycin) 100 mg PO NOW ONE Stop: 03/18/20 17:36 Last Admin: 03/18/20 17:44 Dose: 100 mg Documented by: EDDIE Ibuprofen (Advil) 800 mg PO NOW ONE Stop: 03/18/20 17:36 Last Admin: 03/18/20 17:44 Dose: 800 mg Documented by: EDDIE Vital Signs Vital signs: Vital Signs - 8 hr 03/18/20 16:28 Temperature 97.7 F Pulse Rate 78 Respiratory Rate 20 Blood Pressure 193/97 H Pulse Oximetry 97 Discharge Plan Departure Patient Disposition: Home Clinical Impression: Phlegmon Mass in armpit Qualifiers: Laterality: right Qualified Code(s): R22.31 - Localized swelling, mass and lump, right upper limb Discharge Date/Time: 03/18/20 17:50 Instructions: DI for Cellulitis -- Adult, DI for Skin Abscess Activity Restrictions/Additional Instructions: 1. You have been given the discharge instructions for an abscess and cellulitis. The principles of treatment are the same for the phlegmon. Take the antibiotic doxycycline as prescribed. For pain and discomfort take 3, 200 mg Advil/ibuprofen tablets every 6 hours. 2. Apply warm compresses to your axilla/arm pit for 20-30 minutes every 2 to 3 hours while awake. 3. You need to have a wound recheck in 48-72 hours. The nodule may completely disappear with the antibiotic therapy and warm compresses. It may develop into an abscess that needs to be drained. At this time it does not need to be drained. If you develop fever worsening pain or discomfort you need to be re- evaluated. Prescriptions: New doxycycline hyclate 100 mg capsule 100 mg PO BID Qty: 14 RF: 0 ibuprofen 600 mg tablet 600 mg PO Q6H PRN (Reason: fever or pain) Qty: 20 RF: 0 No Action atorvastatin 40 mg Tablet 40 mg PO BEDTIME RF: 0 oxycodone-acetaminophen [Percocet] 5-325 mg Tablet 1 tab PO Q4-6H PRN (Reason: Pain (Scale Score 1-3)) RF: 0 amlodipine 10 mg Tablet 10 mg PO DAILY RF: 0 omeprazole 20 mg Capsule,Delayed Release(Dr/Ec) 20 mg PO BID RF: 0 hydrochlorothiazide 25 mg Tablet 25 mg PO BID RF: 0 potassium citrate 10 mEq (1,080 mg) Tablet Extended Release 20 meq PO TID PRN (Reason: kidney stones) RF: 0 colchicine 0.6 mg Tablet 0.6 mg PO DAILY PRN (Reason: Gout) RF: 0 allopurinol 300 mg Tablet 300 mg PO DAILY RF: 0 sulfamethoxazole-trimethoprim [Bactrim DS] 800-160 mg tablet 1 tab PO BID Qty: 10 RF: 0
[2020-03-18] MEDS: IBUPROFEN 400 MG TABLET 800 MG PO (17:44)
[2020-03-18] MEDS: DOXYCYCLINE HYCLATE 100 MG TABLET PO (17:44)
[2020-03-18 17:46] VITALS: BP 188/91; PULSE 78; RESP 20; O2SAT 96
== END 2020-03-18 17:50 | disposition home or self-care (01) ==
PROVIDERS: Emergency Provider Emergency Medicine
DX: L02.411 Cutaneous abscess of right axilla (principal); R22.31 Localized swelling, mass and lump, right upper limb; I10 Essential (primary) hypertension
CPT/HCPCS: 99283

== ENCOUNTER 2021-01-07 13:06 | Emergency (ER) | payer OTHER, SELFPAY ==
[2021-01-07 13:09] VITALS: BP 168/86; PULSE 59; RESP 20; TEMP 36.3; O2SAT 97
--- NOTE | 2021-01-07 13:56 | ED_ITS ---
HPI - Skin/Abscess/Foreign Bdy General Chief complaint: Skin/Abscess/Foreign Body Stated complaint: celulitis/mrsa Time Seen by Provider: 01/07/21 13:56 Source: patient and old records reviewed Mode of arrival: Ambulatory Limitations: no limitations History of Present Illness HPI narrative: This is a 55-year-old male who comes with concern for abscess in his right axilla. Patient states he has had infection there twice before 1 requiring surgery in the OR which he states they drained approximately 600 mL. The 2nd time he was seen here at [facility]. He was placed on oral antibiotics and use warm compresses but did not had an I&D and it did improve. He states that it has reoccurred is about the same level of intensity. Patient has not had any fevers. He has not had any systemic symptoms. Patient does have a history of stroke with left hemiparesis, trigeminal neuralgia and hypertension. Patient states that his was diagnosed with MRSA he states they clean the house very carefully but there was concern that this may be related. Patient denies any allergies other than penicillin. He denies any other concerns today. Related Data Home Medications Medication Instructions Recorded Confirmed amlodipine 10 mg PO DAILY 02/13/20 02/15/20 atorvastatin 40 mg PO BEDTIME 02/13/20 02/15/20 hydrochlorothiazide 25 mg PO BID 02/13/20 02/15/20 omeprazole 20 mg PO BID 02/13/20 02/15/20 oxycodone-acetaminophen [Percocet] 1 tab PO Q4-6H PRN 02/13/20 02/15/20 colchicine 0.6 mg PO DAILY PRN 02/15/20 02/15/20 potassium citrate 20 meq PO TID PRN 02/15/20 02/15/20 allopurinol 300 mg PO DAILY 02/17/20 02/17/20 Previous Rx's Medication Instructions Recorded sulfamethoxazole-trimethoprim 1 tab PO BID #10 tab 02/18/20 [Bactrim DS] doxycycline hyclate 100 mg PO BID #14 cap 03/18/20 ibuprofen 600 mg PO Q6H PRN #20 tab 03/18/20 doxycycline hyclate 100 mg PO BID #20 tab 01/07/21 ibuprofen 600 mg PO QID PRN #20 tab 01/07/21 Allergies Allergy/AdvReac Type Severity Reaction Status Date / Time Penicillins Allergy Severe Anaphylaxis Verified 02/13/20 14:51 Review of Systems Review of Systems ROS Unobtainable: All systems reviewed & are unremarkable except as noted in HPI and below Patient History Medical History (Updated 01/07/21 @ 14:12 by Marixa Shipley DO) CVA (cerebral vascular accident) Gout Hemiparesis affecting left side as late effect of cerebrovascular accident (CVA) Hyperlipidemia Hypertension Kidney stones Obesity (BMI 30.0-34.9) Trigeminal neuralgia Surgical History History of excision of mass History of excision of pilonidal cyst History of incision and drainage Status post gastric bypass for obesity Family History Father Stroke Dementia Mother Cancer Social History household members: spouse Smoking Status: Never smoker Smoking Status: Never smoker alcohol intake frequency: 0-2 drinks per day Substance Use Type: does not use Exam Narrative Exam Narrative: GENERAL: Alert and oriented x three, cooperative. In no acute distress. HEENT: Head normocephalic, atraumatic, EOMI, face symmetric, moist mucous membranes NECK: Supple, full range of motion CARDIOVASCULAR: Regular rate and rhythm without murmurs, rubs or gallops. RESPIRATORY: Breath sounds equal bilaterally, no wheezes rales or rhonchi. ABDOMEN: Soft, nontender. Normoactive bowel sounds all 4 quadrants. No guarding or rebound, rigidity, no mass : No CVA tenderness EXTREMITIES: Patient does have acute decreased movement of the left upper and lower extremity along with a brace on his left foot and ankle consistent with his history hemiparesis on the left. NEUROLOGICAL: Cranial nerves II through XII grossly intact. Moving all extremities SKIN: Warm, dry, no petechiae. Patient has 2 small erythematous nodules in the right axilla at the anterior edge. They were both less than 1 cm. They are mildly tender to palpation. The slightly larger 1 is fluctuant. There is a small streak of cellulitis extending along the edges and about a cm beyond in a linear pattern in the anterior increase in the axilla. No warmth is appreciated. Patient does not have any other masses, lesions or erythema noted. There is no active drainage. Initial Vital Signs Initial Vital Signs: Vital Signs Temperature 97.4 F L 01/07/21 13:09 Pulse Rate 59 L 01/07/21 13:09 Respiratory Rate 20 01/07/21 13:09 Blood Pressure 168/86 H 01/07/21 13:09 Pulse Oximetry 97 01/07/21 13:09 Procedures Abscess I/D I&D #1: Site: upper extremity (axilla) Side (if applicable): right Local Anesthetic: lidocaine 1% Amount of anesthesia used (mL): 1.5 Technique: needle aspiration and incised with #11 blade Amount of fluid expressed (mL): 1 Packing used?: none Course Orders Ordered: ED Orders 01/07/21 14:34 Wound Culture and Gram Stain Stat Discontinued Medications Doxycycline Hyclate (Doxycycline Hyclate 100 Mg Tablet) 100 mg PO NOW ONE Stop: 01/07/21 14:36 Last Admin: 01/07/21 14:42 Dose: 100 mg Documented by: Lidocaine/Sodium Bicarbonate (Lido 1%/Sod Bicarb 8.4% (10ml) 10 Ml Syringe) 10 ml INJ NOW ONE Stop: 01/07/21 14:05 Last Admin: 01/07/21 14:24 Dose: 10 ml Documented by: Vital Signs Vital signs: Vital Signs - 8 hr 01/07/21 13:09 Temperature 97.4 F L Pulse Rate 59 L Respiratory Rate 20 Blood Pressure 168/86 H Pulse Oximetry 97 MDM - Skin/Abscess/Foreign Bdy MDM Narrative Medical decision making narrative: 55-year-old male with prior abscess in the right axilla. Patient does not have any known history of hidradenitis but this is his 2nd or 3rd episode. He has required OR drainage once in the past and has responded to antibiotics on his 2nd episode. Discussed with patient he elects for incision and drainage we do plan to give him oral antibiotics with his multiple medical issues and prior history of large abscess. Patient and I discussed return precautions. 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 Discharge Plan Departure Patient Disposition: Home Clinical Impression: Cellulitis of axilla, right Instructions: DI for Cellulitis -- Adult Activity Restrictions/Additional Instructions: Follow up with your physician in the next week for recheck. Take antibiotics until completely gone. Up to 600 mg every 6 hours as needed for pain Prescription to [facility]. You may continue home medications as prescribed. Wound Care: Keep wound(s) clean and dry. Wash daily with soap and water only. Do not use over the counter products (alcohol or peroxide)on the wounds unless instructed by a physician. If wound condition worsens (increased/expanding redness, developing fluid blisters, or worsening pain), either contact your doctor for an urgent re- assessment , or return to the Emergency Department. Return to the Emergency Department for any new or worsening symptoms. Return if fever greater than 100.4 Fahrenheit, increased swelling, increasing pain, new weakness, numbness or loss of sensation in your extremity, new chest pain or shortness of breath or worsening symptoms such as increased discharge or spreading redness. Prescriptions: New doxycycline hyclate 100 mg tablet 100 mg PO BID Qty: 20 RF: 0 ibuprofen 600 mg tablet 600 mg PO QID PRN (Reason: pain or fever) Qty: 20 RF: 0 No Action doxycycline hyclate 100 mg capsule 100 mg PO BID Qty: 14 RF: 0 ibuprofen 600 mg tablet 600 mg PO Q6H PRN (Reason: fever or pain) Qty: 20 RF: 0 atorvastatin 40 mg Tablet 40 mg PO BEDTIME RF: 0 oxycodone-acetaminophen [Percocet] 5-325 mg Tablet 1 tab PO Q4-6H PRN (Reason: Pain (Scale Score 1-3)) RF: 0 amlodipine 10 mg Tablet 10 mg PO DAILY RF: 0 omeprazole 20 mg Capsule,Delayed Release(Dr/Ec) 20 mg PO BID RF: 0 hydrochlorothiazide 25 mg Tablet 25 mg PO BID RF: 0 potassium citrate 10 mEq (1,080 mg) Tablet Extended Release 20 meq PO TID PRN (Reason: kidney stones) RF: 0 colchicine 0.6 mg Tablet 0.6 mg PO DAILY PRN (Reason: Gout) RF: 0 allopurinol 300 mg Tablet 300 mg PO DAILY RF: 0 sulfamethoxazole-trimethoprim [Bactrim DS] 800-160 mg tablet 1 tab PO BID Qty: 10 RF: 0
[2021-01-07] MEDS: LIDO 1%/SOD BICARB 8.4% (10ML) 10 ML SYRINGE INJ (14:24)
[2021-01-07] MEDS: DOXYCYCLINE HYCLATE 100 MG TABLET PO (14:42)
== END 2021-01-07 14:52 | disposition home or self-care (01) ==
PROVIDERS: Emergency Provider Emergency Medicine
DX: L03.111 Cellulitis of right axilla (principal)
CPT/HCPCS: 10060; 87070; 87075; 87077; 87147; 87186; 87205; 99283; 99284

== ENCOUNTER 2021-02-19 13:08 | Emergency (ER) | payer OTHER, SELFPAY ==
[2021-02-19 13:35] VITALS: BP 132/77; PULSE 59; RESP 18; TEMP 36.6; O2SAT 98; BMI 29.8
[2021-02-19 17:27] VITALS: BP 192/85; PULSE 67; TEMP 36.6; O2SAT 97
[2021-02-19] MEDS: TRIMETH/SULFA 160/800 (DS) TABLET 1 TAB PO (19:06)
[2021-02-19] MEDS: CLINDAMYCIN 150 MG CAPSULE 300 MG PO (19:06)
[2021-02-19 19:11] VITALS: BP 184/89; PULSE 6; RESP 18; O2SAT 98
--- NOTE | 2021-02-20 04:55 | ED_ITS ---
HPI - Skin/Abscess/Foreign Bdy General Chief complaint: Skin/Abscess/Foreign Body Stated complaint: MRSA ON ASS Time Seen by Provider: 02/19/21 18:09 Source: patient Mode of arrival: Ambulatory Limitations: no limitations History of Present Illness HPI narrative: 55-year-old man with a history of strokes and memory dysfunction following them, gout, hypertension, diabetes, hyperlipidemia who presents complaining of an abscess on his right buttock. He notes that about a week ago he had an ingrown hair and his ?pulled it out for him? After that noted increasing redness and swelling. About 2 days ago it began to drain and has been draining since. He comes in today with concerns of increasing redness tenderness. He does not complain of fevers, myalgias, chills, diarrhea, dysuria, chest pain, dyspnea Related Data Home Medications Medication Instructions Recorded Confirmed amlodipine 10 mg PO DAILY 02/13/20 02/15/20 atorvastatin 40 mg PO BEDTIME 02/13/20 02/15/20 hydrochlorothiazide 25 mg PO BID 02/13/20 02/15/20 omeprazole 20 mg PO BID 02/13/20 02/15/20 oxycodone-acetaminophen [Percocet] 1 tab PO Q4-6H PRN 02/13/20 02/15/20 colchicine 0.6 mg PO DAILY PRN 02/15/20 02/15/20 potassium citrate 20 meq PO TID PRN 02/15/20 02/15/20 allopurinol 300 mg PO DAILY 02/17/20 02/17/20 Previous Rx's Medication Instructions Recorded sulfamethoxazole-trimethoprim 1 tab PO BID #10 tab 02/18/20 [Bactrim DS] doxycycline hyclate 100 mg PO BID #14 cap 03/18/20 ibuprofen 600 mg PO Q6H PRN #20 tab 03/18/20 doxycycline hyclate 100 mg PO BID #20 tab 01/07/21 ibuprofen 600 mg PO QID PRN #20 tab 01/07/21 clindamycin HCl 300 mg PO TID #21 cap 02/19/21 sulfamethoxazole-trimethoprim 1 tab PO BID #14 tab 02/19/21 [Bactrim DS] Allergies Allergy/AdvReac Type Severity Reaction Status Date / Time Penicillins Allergy Severe Anaphylaxis Verified 02/13/20 14:51 Review of Systems Review of Systems Narrative: Remainder of complete review of systems is otherwise unremarkable except for that included in the HPI. Patient History Medical History CVA (cerebral vascular accident) Gout Hemiparesis affecting left side as late effect of cerebrovascular accident (CVA) Hyperlipidemia Hypertension Kidney stones Obesity (BMI 30.0-34.9) Trigeminal neuralgia Surgical History History of excision of mass History of excision of pilonidal cyst History of incision and drainage Status post gastric bypass for obesity Family History Father Stroke Dementia Mother Cancer Social History household members: spouse Smoking Status: Never smoker Smoking Status: Never smoker alcohol intake frequency: 0-2 drinks per day Substance Use Type: does not use Exam Narrative Exam Narrative: General: Alert appropriate in no acute distress Respiratory: Able to speak in full sentences, no obvious respiratory distress Skin: No obvious rashes, warm and dry Neurologic: Grossly intact no obvious asymmetries or abnormalities Psych: appropriate insight and affect, cooperative Buttocks: 3 cm area on the mid right buttock of erythema with small area of central eschar and no fluctuance. Abscess appears to be completely and with mild surrounding cellulitis at this time Initial Vital Signs Initial Vital Signs: Vital Signs Temperature 97.8 F 02/19/21 13:35 Pulse Rate 59 L 02/19/21 13:35 Respiratory Rate 18 02/19/21 13:35 Blood Pressure 132/77 02/19/21 13:35 Pulse Oximetry 98 02/19/21 13:35 Course Orders Ordered: Discontinued Medications Clindamycin HCl (Clindamycin 150 Mg Capsule) 300 mg PO NOW ONE Stop: 02/19/21 18:45 Last Admin: 02/19/21 19:06 Dose: 300 mg Documented by: FRANCO Trimethoprim/Sulfamethoxazole (Trimeth/Sulfa 160/800 (Ds) Tablet) 1 tab PO NOW ONE Stop: 02/19/21 18:45 Last Admin: 02/19/21 19:06 Dose: 1 tab Documented by: FRANCO MDM - Skin/Abscess/Foreign Bdy Medical Records Attestation: I reviewed the patient's medical records. MDM Narrative Medical decision making narrative: 55-year-old gentleman with perifollicular abscess that begin draining 2 days ago continues to drain nicely does not need to be opened any further at this point. With the continued tenderness and surrounding erythema will place him on both clindamycin and Septra for cellulitis with presumed MRSA. No evidence of sepsis or deeper spreading infection and patient is safe for home discharge Discharge Plan Departure Patient Disposition: Home Clinical Impression: Abscess Cellulitis Qualifiers: Site of cellulitis: buttock Qualified Code(s): L03.317 - Cellulitis of buttock Instructions: DI for Cellulitis -- Adult, DI for Skin Abscess Activity Restrictions/Additional Instructions: Thank you for coming in today So the area on your right butt cheek was an abscess and has already drained appr opriately. It is okay to stay in the shower to keep the area moist for a bit of time to allow the area to continue to drain. It has drained enough that I do not need to do any more procedures in the emergency department You are developing a surrounding cellulitis, skin infection. Because of this I am going to place you on 2 antibiotics to make sure that we are completely getting rid of the presumed MRSA. The Septra/Bactrim is 2 times a day and the clindamycin is 3 times a day. Please make sure he complete both prescriptions. [place] If you have increasing redness, pain, fevers or new or developing symptoms please return to the ER for further evaluation Prescriptions: New sulfamethoxazole-trimethoprim [Bactrim DS] 800-160 mg tablet 1 tab PO BID Qty: 14 RF: 0 clindamycin HCl 300 mg capsule 300 mg PO TID Qty: 21 RF: 0 No Action doxycycline hyclate 100 mg capsule 100 mg PO BID Qty: 14 RF: 0 ibuprofen 600 mg tablet 600 mg PO Q6H PRN (Reason: fever or pain) Qty: 20 RF: 0 doxycycline hyclate 100 mg tablet 100 mg PO BID Qty: 20 RF: 0 ibuprofen 600 mg tablet 600 mg PO QID PRN (Reason: pain or fever) Qty: 20 RF: 0 atorvastatin 40 mg Tablet 40 mg PO BEDTIME RF: 0 oxycodone-acetaminophen [Percocet] 5-325 mg Tablet 1 tab PO Q4-6H PRN (Reason: Pain (Scale Score 1-3)) RF: 0 amlodipine 10 mg Tablet 10 mg PO DAILY RF: 0 omeprazole 20 mg Capsule,Delayed Release(Dr/Ec) 20 mg PO BID RF: 0 hydrochlorothiazide 25 mg Tablet 25 mg PO BID RF: 0 potassium citrate 10 mEq (1,080 mg) Tablet Extended Release 20 meq PO TID PRN (Reason: kidney stones) RF: 0 colchicine 0.6 mg Tablet 0.6 mg PO DAILY PRN (Reason: Gout) RF: 0 allopurinol 300 mg Tablet 300 mg PO DAILY RF: 0 sulfamethoxazole-trimethoprim [Bactrim DS] 800-160 mg tablet 1 tab PO BID Qty: 10 RF: 0
== END 2021-02-19 19:23 | disposition home or self-care (01) ==
PROVIDERS: Emergency Provider Emergency Medicine
DX: L02.31 Cutaneous abscess of buttock (principal); L03.317 Cellulitis of buttock
CPT/HCPCS: 99283

== ENCOUNTER 2021-11-27 13:44 | Emergency (ER) | payer OTHER, SELFPAY ==
[2021-11-27] VITALS (14 sets, daily range): BP systolic 93–116; BP diastolic 55–67; PULSE 52–102; RESP 12–42; TEMP 36.6; O2SAT 85–100; BMI 30.4
--- NOTE | 2021-11-27 13:59 | DI.CT.S_ITS ---
PROCEDURE: CT HEAD/BRAIN WO CON INDICATIONS: hx of stroke, L sided weakness now right sided weakness TECHNIQUE: Noncontrast 4.5 mm thick angled axial sections acquired from the foramen magnum to the vertex, with coronal and sagittal reformats. For radiation dose reduction, the following was used: automated exposure control, adjustment of mA and/or kV according to patient size. COMPARISON: None. FINDINGS: Image quality: Excellent. CSF spaces: Basal cisterns are patent. No extra-axial fluid collections. Ventricles are normal in size and shape. Brain: No midline shift. No intracranial masses or hemorrhage. Romero-white matter interface is normal. Skull and face: Calvarium and visualized facial bones are intact, without suspicious lesions. Sinuses: Visualized sinuses and mastoids are clear. IMPRESSION: 1. No acute intracranial process. Dictated by: Devora Yadav M.D. on 11/27/2021 at 14:28 Approved by: Devora Yadav M.D. on 11/27/2021 at 14:29
--- NOTE | 2021-11-27 14:10 | ED_ITS ---
HPI - Neuro Symptoms/Deficit General Chief Complaint: Neuro Symptoms/Deficit Stated Complaint: Poss stroke. Hx of strokes Time Seen by Provider: 11/27/21 13:55 Source: patient Mode of arrival: Family Vehicle Limitations: no limitations History of Present Illness HPI Narrative: Patient is a 55-year-old male with multiple medical problems. He has had a stroke in the past with residual left-sided deficits. At baseline he is able to dress himself and feed himself and get around the house hand ambulate. He is not on anticoagulation. Has not been taking his aspirin and Plavix. Is a zar-wrwcslf-iibmyyewg diabetic but is also not been taking his metformin. He is here in the emergency department for concerns of a potential stroke. Yesterday he had a headache. He went to bed last night and slept well. Woke up this morning continue to have slight headache. Was able to walk around. Was sitting in his chair. He tried to get up from his chair noticed that his right side was weak and he could stand. This is not baseline for him. Patient's also stated that she could not lift him up with his right hand because of his weakness. They were able to arrived to the emergency department by private veh icle. They arrived greater than 4.5 hours after the onset of his symptoms. By the time I evaluated him he felt like his symptoms had greatly improved. On Anticoagulants: No Related Data Home Medications Medication Instructions Recorded Confirmed amlodipine 10 mg tablet 10 mg PO DAILY 02/13/20 02/15/20 atorvastatin 40 mg tablet 40 mg PO BEDTIME 02/13/20 02/15/20 hydrochlorothiazide 25 mg tablet 25 mg PO BID 02/13/20 02/15/20 omeprazole 20 mg capsule,delayed 20 mg PO BID 02/13/20 02/15/20 release oxycodone-acetaminophen 5 mg-325 1 tab PO Q4-6H PRN 02/13/20 02/15/20 mg tablet (Percocet) colchicine 0.6 mg tablet 0.6 mg PO DAILY PRN 02/15/20 02/15/20 potassium citrate 10 mEq (1,080 20 meq PO TID PRN 02/15/20 02/15/20 mg) tablet,extended release allopurinol 300 mg tablet 300 mg PO DAILY 02/17/20 02/17/20 Previous Rx's Medication Instructions Recorded sulfamethoxazole 800 1 tab PO BID #10 tab 02/18/20 mg-trimethoprim 160 mg tablet (Bactrim DS) doxycycline hyclate 100 mg capsule 100 mg PO BID #14 cap 03/18/20 ibuprofen 600 mg tablet 600 mg PO Q6H PRN #20 tab 03/18/20 doxycycline hyclate 100 mg tablet 100 mg PO BID #20 tab 01/07/21 ibuprofen 600 mg tablet 600 mg PO QID PRN #20 tab 01/07/21 clindamycin HCl 300 mg capsule 300 mg PO TID #21 cap 02/19/21 sulfamethoxazole 800 1 tab PO BID #14 tab 02/19/21 mg-trimethoprim 160 mg tablet (Bactrim DS) aspirin 81 mg chewable tablet 81 mg PO DAILY #30 tab 11/27/21 atorvastatin 80 mg tablet 80 mg PO DAILY #30 tab 11/27/21 clopidogrel 75 mg tablet (Plavix) 75 mg PO DAILY 21 Days #21 tab 11/27/21 Allergies Allergy/AdvReac Type Severity Reaction Status Date / Time Penicillins Allergy Severe Anaphylaxis Verified 11/27/21 13:56 Review of Systems Constitutional Constitutional: Denies fever(s) and Reports headache(s) Eyes Eyes: Denies blurry vision and Denies change in vision ENT Ears, Nose, Mouth, and Throat: Denies dizziness, Reports headache(s) and Denies sore throat Cardiovascular Cardiovascular: Denies chest pain, Denies syncope, Denies rapid heart rate and Denies dyspnea Respiratory Respiratory: Denies cough and Denies dyspnea Gastrointestinal Gastrointestinal: Denies abdominal pain, Denies nausea and Denies vomiting Genitourinary Genitourinary: Denies dysuria Musculoskeletal Musculoskeletal: Reports system reviewed and no additional complaints, except as documented Integumentary/Breasts Skin/Breast: Denies rash Neurologic Neurologic: Reports system reviewed and no additional complaints, except as documented, Reports as per HPI, Denies dizziness, Denies syncope and Reports headache(s) Hematologic/Lymphatic On Anticoagulants: No Allergic/Immunologic Allergic/Immunologic: Reports system reviewed and no additional complaints, except as documented Patient History Medical History CVA (cerebral vascular accident) Gout Hemiparesis affecting left side as late effect of cerebrovascular accident (CVA) Hyperlipidemia Hypertension Kidney stones Obesity (BMI 30.0-34.9) Trigeminal neuralgia Surgical History History of excision of mass History of excision of pilonidal cyst History of incision and drainage Status post gastric bypass for obesity Family History Father Stroke Dementia Mother Cancer Social History household members: spouse Smoking Status: Never smoker Smoking Status: Never smoker alcohol intake frequency: 0-2 drinks per day Substance Use Type: does not use Exam Initial Vital Signs Initial Vital Signs: Vital Signs Pulse Rate 102 H 11/27/21 13:53 Const General: comfortable, well developed and No ill appearing HENMT Head: normal to inspection and normocephalic Eyes Pupils: PERRL Resp Effort & Inspection: normal respiratory effort Auscultation: clear to auscultation bilaterally Cardio Rate: regular rate Rhythm: regular rhythm GI Palpation: soft and No tender Skin General: no rashes or lesions noted Neuro Other: see NIH score Extrem General: normal to inspection and capillary refill normal Psych Appearance: grossly normal and well kempt Scores GCS [place] coma scale eye opening: Spontaneous Aaliyah coma scale verbal response: Orientated [place] coma scale motor response: Obey commands [place] coma scale total score: 15 NIH Stroke Scale Level of Conciousness: Alert, keenly responsive Ask month/age: Answers both questions correctly. Open/close eyes, close hand: Performs both tasks correctly Best gaze horizontal: Normal Visual rhoades: Complete hemianopia Facial palsy: Minor paralysis, flattened nasolabial fold, asymmetry on smiling Left arm drift: Drifts down, not to bed Right arm drift: No drift for full 10 sec Left leg drift: Drifts down, not to bed Right leg drift: No drift for full 5 sec Limb ataxia: Present in one limb Sensory on face/arms/legs: Normal, no sensory loss Best language: No aphasia, normal Dysarthria: Normal Extinction or inattention: No abnormality Total NIH Stroke scale score: 6 Course Orders Ordered: ED Orders 11/27/21 13:59 CT head/brain wo con Stat 11/27/21 14:00 COVID19 -Nasal swab/Pre-Proc Stat Complete Blood Count AUTO DIFF Stat Comprehensive Metabolic Panel Stat Ethanol (ETOH) Stat Lipase Stat Magnesium Stat Partial Thromboplastin Time Stat Prothrombin Time INR Stat Troponin & CK Cardiac Panel Stat 11/27/21 14:01 EKG-12 Lead Stat 11/27/21 14:11 CT angio head and neck Stat Discontinued Medications Aspirin (Aspirin Ec 325 Mg Tablet) 325 mg PO NOW ONE Stop: 11/27/21 17:20 Last Admin: 11/27/21 17:33 Dose: 325 mg Documented by: MUNIRA Atorvastatin Calcium (Atorvastatin 20 Mg Tablet) 80 mg PO NOW ONE Stop: 11/27/21 17:35 Last Admin: 11/27/21 17:40 Dose: 80 mg Documented by: MUNIRA Clopidogrel Bisulfate (Clopidogrel 75 Mg Tablet) 300 mg PO NOW ONE Stop: 11/27/21 17:20 Last Admin: 11/27/21 17:35 Dose: 300 mg Documented by: MUNIRA Ondansetron HCl (Ondansetron 4 Mg/2 Ml Inj) 4 mg IV NOW ONE Stop: 11/27/21 14:59 Last Admin: 11/27/21 15:10 Dose: 4 mg Documented by: SHAWN Vital Signs Vital signs: Vital Signs - 8 hr 11/27/21 13:53 11/27/21 13:55 11/27/21 14:00 Temperature Pulse Rate 102 H 58 L 58 L Respiratory Rate 16 Blood Pressure 116/67 Pulse Oximetry 100 100 11/27/21 14:40 11/27/21 14:44 11/27/21 15:00 Temperature 97.8 F Pulse Rate 55 L 57 L 56 L Respiratory Rate 18 16 Blood Pressure 103/55 L Pulse Oximetry 98 99 98 11/27/21 15:01 11/27/21 15:30 11/27/21 16:00 Temperature Pulse Rate 54 L 56 L 57 L Respiratory Rate 12 20 15 Blood Pressure 114/59 L 93/57 L 101/59 L Pulse Oximetry 98 98 99 11/27/21 16:34 11/27/21 16:36 11/27/21 17:00 Temperature Pulse Rate 60 55 L 52 L Respiratory Rate 42 H 13 13 Blood Pressure 116/58 L Pulse Oximetry 85 L 100 95 11/27/21 17:01 11/27/21 17:30 Temperature Pulse Rate 54 L 52 L Respiratory Rate 12 12 Blood Pressure 108/55 L 104/55 L Pulse Oximetry 96 97 MDM - Neuro Symptoms/Deficit Medical Records Attestation: I reviewed the patient's medical records. Lab Data Attestation: I reviewed the patient's lab results. Result diagrams: 11/27/21 14:00 11/27/21 14:00 Labs: Lab Results 11/27/21 11/27/21 11/27/21 Range/Units 14:00 14:00 14:00 WBC 9.4 (4.5-11.0) X10^3/uL RBC 4.82 (4.5-5.9) X10^6/uL Hgb 10.8 L (13.5-17.5) g/dL Hct 35.3 L (41-53) % MCV 73.2 L (80-100) fL MCH 22.4 L (26-34) PG MCHC 30.6 (30-36) % RDW 17.7 H (11.6-14.8) % Plt Count 348 (150-400) X10^3/uL Neut % (Auto) 70.5 (50-75) % Lymph % (Auto) 21.6 L (25-40) % Blount % (Auto) 6.7 (3-14) % Eos % (Auto) 0.4 L (2-4) % Baso % (Auto) 0.8 (0-2) % Neut # (Auto) 6600 (0144-0709) /uL Lymph # (Auto) 2000 (2261-2811) /uL Blount # (Auto) 600 (0-900) /uL Eos # (Auto) 0 (0-450) /uL Baso # (Auto) 100 (0-100) /uL PT 11.2 (10.1-12.7) SECONDS INR 1.0 (0.9-1.3) APTT 33 (26.4-36.2) SECONDS Sodium 138 (137-145) mmol/L Potassium 5.0 (3.4-5.1) mmol/L Chloride 100 (98-107) mmol/L Carbon Dioxide 30 (22-32) mmol/L BUN 17 (9-20) mg/dL Creatinine 1.06 (0.66-1.25) mg/dL Estimated GFR > 60.0 (>60) mL/min BUN/Creatinine Ratio 16.0 (6-22) Glucose 153 H (70-100) mg/dL Calcium 9.0 (8.4-10.2) mg/dL Magnesium 1.9 (1.6-2.3) mg/dL Total Bilirubin 0.4 (0.2-1.3) mg/dL AST 29 (17-59) IU/L ALT 36 (<50) IU/L Alkaline Phosphatase 87 (38-126) U/L Total Creatine Kinase 52 L (55-170) U/L CK-MB (CK-2) TNP CK-MB (CK-2) Rel Index TNP Troponin I < 0.012 (0.01-0.034) ng/mL Total Protein 7.5 (6.3-8.2) g/dL Albumin 4.5 (3.5-5.0) g/dL Globulin 3.0 (1.7-4.1) g/dL Albumin/Globulin Ratio 1.5 (1.0-2.8) Lipase 2781 H (23-300) U/L Ethyl Alcohol < 10 ( - 10) mg/dL SARS-CoV-2 (PCR) (Negative) 11/27/21 Range/Units 14:00 WBC (4.5-11.0) X10^3/uL RBC (4.5-5.9) X10^6/uL Hgb (13.5-17.5) g/dL Hct (41-53) % MCV (80-100) fL MCH (26-34) PG MCHC (30-36) % RDW (11.6-14.8) % Plt Count (150-400) X10^3/uL Neut % (Auto) (50-75) % Lymph % (Auto) (25-40) % Blount % (Auto) (3-14) % Eos % (Auto) (2-4) % Baso % (Auto) (0-2) % Neut # (Auto) (0066-2898) /uL Lymph # (Auto) (1095-0064) /uL Blount # (Auto) (0-900) /uL Eos # (Auto) (0-450) /uL Baso # (Auto) (0-100) /uL PT (10.1-12.7) SECONDS INR (0.9-1.3) APTT (26.4-36.2) SECONDS Sodium (137-145) mmol/L Potassium (3.4-5.1) mmol/L Chloride (98-107) mmol/L Carbon Dioxide (22-32) mmol/L BUN (9-20) mg/dL Creatinine (0.66-1.25) mg/dL Estimated GFR (>60) mL/min BUN/Creatinine Ratio (6-22) Glucose (70-100) mg/dL Calcium (8.4-10.2) mg/dL Magnesium (1.6-2.3) mg/dL Total Bilirubin (0.2-1.3) mg/dL AST (17-59) IU/L ALT (<50) IU/L Alkaline Phosphatase (38-126) U/L Total Creatine Kinase (55-170) U/L CK-MB (CK-2) CK-MB (CK-2) Rel Index Troponin I (0.01-0.034) ng/mL Total Protein (6.3-8.2) g/dL Albumin (3.5-5.0) g/dL Globulin (1.7-4.1) g/dL Albumin/Globulin Ratio (1.0-2.8) Lipase (23-300) U/L Ethyl Alcohol ( - 10) mg/dL SARS-CoV-2 (PCR) Negative (Negative) Urine Dip Bedside Urine Glucose Negative Bedside Urine Bilirubin - Negative Bedside Urine Ketone - Negative Urine Specific [place] 1.020 Bedside Urine Occult Blood - Negative Bedside Urine pH 6.0 Bedside Urine Protein - Negative Bedside Urine Urobilinogen - Negative Bedside Urine Nitrite - Negative Bedside Urine Leukocytes - Negative Esterase Imaging Data CT scan - head: Radiologist's Impression: [address] [address] [address] Scan Report Signed Patient: Tera Lee MR#: [id number] : 1965 Acct:[id number] Age/Sex: 55 / M Date of Service: 11/27/21 Loc: ED Accession Number: [id number] ?? Procedure: CT head/brain wo con Ordering Provider: Rex Roblero D.O. PROCEDURE:? CT HEAD/BRAIN WO CON ? INDICATIONS:? hx of stroke, L sided weakness now right sided weakness ? TECHNIQUE:? Noncontrast 4.5 mm thick angled axial sections acquired from the foramen magnum to the vertex, with coronal and sagittal reformats.? For radiation dose reduction, the following was used:? automated exposure control, adjustment of mA and/or kV according to patient size.? ? COMPARISON:? None. ? FINDINGS:? Image quality:? Excellent.? ? CSF spaces:? Basal cisterns are patent.? No extra-axial fluid collections.? Ventricles are normal in size and shape.? ? Brain:? No midline shift.? No intracranial masses or hemorrhage.? Romero-white matter interface is normal.? ? Skull and face:? Calvarium and visualized facial bones are intact, without suspicious lesions.? ? Sinuses:? Visualized sinuses and mastoids are clear.? ? IMPRESSION:? ? 1. No acute intracranial process. ? ? Dictated by: Devora Yadav M.D. on 11/27/2021 at 14:28 ? ? Approved by: Devora Yadav M.D. on 11/27/2021 at 14:29 CTA - brain/neck: Radiologist's Impression: Launch?[place] [address] CT Scan Report Signed Patient: Tera Lee MR#: [id number] : 1965 Acct:[id number] Age/Sex: 55 / M Date of Service: 11/27/21 Loc: ED Accession Number: [id number] ?? Procedure: CT angio head and neck Ordering Provider: Rex Roblero D.O. PROCEDURE:? CT ANGIO HEAD AND NECK ? INDICATIONS:? History of stroke ? TECHNIQUE:? Noncontrast images were performed earlier in the day and not repeated.? After the administration of intravenous contrast, 1 mm thick sections acquired from the aortic arch through the [place] of [place].? Post-contrast 4.5 mm thick sections then re- acquired from the foramen magnum to the vertex.? 3-dimensional qyyauuv-glxhziehe-krkczvlovh (M IP) and/or volume rendering reformats were acquired of the central intracranial vasculature and neck separately. ? COMPARISON:? [facility], CT, CT HEAD/BRAIN WO CON, 11/27/2021, 14:14. ? FINDINGS:? Image quality:? Excellent.? ? BRAIN:? CSF spaces:? Ventricles are normal in size and shape.? Basal cisterns are patent.? No extra-axial fluid collections.? ? Brain:? No midline shift.? No intracranial bleeds or masses.? Romero-white matter interface appears intact.? ? Skull and face:? Calvarium and facial bones appear intact, without suspicious lesions.? Orbits appear normal.? ? Sinuses:? Sinuses and mastoids are clear.? ? HEAD CT ANGIOGRAPHY:? Anterior circulation:? Intracranial internal carotid arteries are normal in size and flow.? The flow within the paired anterior cerebral arteries is normal and symmetric.? The flow within the middle cerebral arteries is normal and symmetric.? The ante rior communicating artery is seen.? No aneurysms are seen.? ? Posterior circulation:? The distal left vertebral artery largely terminates in the left posterior inferior cerebellar artery.? The right V4 segment is within normal limits.? There is a normal appearing basilar artery.? There is a prominent right posterior communicating artery seen, with an accompanying diminutive right P1 segment. This is attributed to a type origin of the right posterior cerebral artery, which is considered to be a normal developmental variant of typically no clinical consequence. Flow within the posterior cerebral arteries is normal and symmetric.? No aneurysms are seen.? ? NECK CT ANGIOGRAPHY:? Carotid system:? The great vessels demonstrate a conventional anatomy as they arise from the aortic arch.? The origins of the common carotid arteries appear patent.? The common carotid arteries demonstrate normal caliber and courses.? The bifurcation regions demonstrate atherosclerotic irregularity and calcification.? On the left, there is approximately 60% narrowing seen involving the proximal internal carotid artery, with a portion of the narrowing caused by soft plaque.? On the right, there is approxim ately 50% narrowing involving the proximal internal carotid artery. The more distal internal carotid arteries demonstrate normal course and caliber.? ? ? Posterior circulation:? The origins of the vertebral arteries both appear widely patent.? The more superior extracranial portions of both vertebral arteries also demonstrate normal courses and calibers.? The right vertebral artery is dominant to the left. ? Soft tissues:? Visualized neck soft tissues demonstrate no suspicious abnormalities.? ? Bones:? No suspicious bony lesions.? Visualized cervical spine appears normally aligned.? Mild cervical spine degenerative change can be seen. ? ? ? IMPRESSION:? No significant intracranial arterial abnormality is seen.? ? If there is strong clinical suspicion for an acute stroke, please consider a brain MRI for further evaluation, as it is more sensitive (assuming that there is no contraindication to MRI). ? Focal calcification and irregularity can be seen involving both proximal internal carotid arteries, with a more severe stenosis on the left than on the right. ? Any quantitative measurements of stenosis were performed using NASCET criteria.? ? ? Dictated by: Shay Garcia M.D. on 11/27/2021 at 14:13 ? ? Approved by: Shay Garcia M.D. on 11/27/2021 at 14:17?? ECG Data Attestation: I personally reviewed and interpreted this ECG as follows: Prior ECG tracings: available for review Interpretation: Sinus rhythm Ventricular rate is 63 Normal axis Normal QRS Normal QTC No ST T wave changes MDM Narrative Medical decision making narrative: Patient arrived greater than 4-1/2 hours after the onset of his symptoms. Not a tPA candidate. He has multiple medical issues however the patient has not been compliant with medications per his report. He is currently not taking his aspir in, statin, metformin, Plavix. The NIH score of 6 is his baseline neurologic issues from his stroke approximately 10 years ago. The issues he was having this morning have greatly improved if not resolved. CT scan of his head and CTA are unremarkable. Had a discussion with him regarding admission to the hospital verses discharged home. He does have a ABCD2 score of 3 has the weakness in his right side was not complete paralysis. Patient was able to ambulate around the emergency department. Patient was also seen in the ER by Dr. Hernandez with internal medicine. After our discussions the patient opted to be discharged home. He understands risks and benefits of admission to the hospital versus being discharged. He was given a dose of aspirin and Plavix and statin prior to discharge in was given a prescription for these to start taking. He was given strict return precautions and follow-up instructions. He expressed understanding and agreement. Discharge Plan Departure Patient Disposition: Home Clinical Impression: Transient cerebral ischemia Instructions: DI for Transient Ischemic Attack Activity Restrictions/Additional Instructions: You were given prescription for 3 medications today. Please start taking them as directed. I also recommend that you continue to take your metformin. These medications are important to help prevent future complications such as strokes. The medicine called clopidogrel/Plavix will only be for the next 21 days. Return to the emergency department for any new or worsening symptoms. Prescriptions: New aspirin 81 mg tablet,chewable 81 mg PO DAILY Qty: 30 2RF clopidogrel [Plavix] 75 mg tablet 75 mg PO DAILY 21 Days Qty: 21 0RF atorvastatin 80 mg tablet 80 mg PO DAILY Qty: 30 2RF No Action doxycycline hyclate 100 mg capsule 100 mg PO BID Qty: 14 0RF ibuprofen 600 mg tablet 600 mg PO Q6H PRN (Reason: fever or pain) Qty: 20 0RF doxycycline hyclate 100 mg tablet 100 mg PO BID Qty: 20 0RF ibuprofen 600 mg tablet 600 mg PO QID PRN (Reason: pain or fever) Qty: 20 0RF sulfamethoxazole-trimethoprim [Bactrim DS] 800-160 mg tablet 1 tab PO BID Qty: 14 0RF clindamycin HCl 300 mg capsule 300 mg PO TID Qty: 21 0RF atorvastatin 40 mg Tablet 40 mg PO BEDTIME 0RF oxycodone-acetaminophen [Percocet] 5-325 mg Tablet 1 tab PO Q4-6H PRN (Reason: Pain (Scale Score 1-3)) 0RF amlodipine 10 mg Tablet 10 mg PO DAILY 0RF omeprazole 20 mg Capsule,Delayed Release(Dr/Ec) 20 mg PO BID 0RF hydrochlorothiazide 25 mg Tablet 25 mg PO BID 0RF potassium citrate 10 mEq (1,080 mg) Tablet Extended Release 20 meq PO TID PRN (Reason: kidney stones) 0RF colchicine 0.6 mg Tablet 0.6 mg PO DAILY PRN (Reason: Gout) 0RF allopurinol 300 mg Tablet 300 mg PO DAILY 0RF sulfamethoxazole-trimethoprim [Bactrim DS] 800-160 mg tablet 1 tab PO BID Qty: 10 0RF
[2021-11-27 14:11] LABS: Add Manual Diff / Slide Review NO; Basophils Absolute Auto 100 /uL (0-100); Basophils Percent Auto 0.8 % (0-2); Eosinophils Absolute Auto 0 /uL (0-450); Eosinophils Percent Auto 0.4 % (2-4); Hematocrit 35.3 % (41-53); Hemoglobin 10.8 g/dL (13.5-17.5); Lymphocytes Absolute Auto 2000 /uL (1100-4500); Lymphocytes Percent Auto 21.6 % (25-40); Mean Corpuscular HGB Conc 30.6 % (30-36); Mean Corpuscular Hemoglobin 22.4 PG (26-34); Mean Corpuscular Volume 73.2 fL (80-100); Monocytes Absolute Auto 600 /uL (0-900); Monocytes Percent Auto 6.7 % (3-14); Neutrophils Absolute Auto 6600 /uL (1500-7000); Neutrophils Percent Auto 70.5 % (50-75); Platelet Count 348 X10^3/uL (150-400); Red Blood Cell Count 4.82 X10^6/uL (4.5-5.9); Red Cell Distribution Width 17.7 % (11.6-14.8); White Blood Cell Count 9.4 X10^3/uL (4.5-11.0)
--- NOTE | 2021-11-27 14:11 | DI.CT.S_ITS ---
PROCEDURE: CT ANGIO HEAD AND NECK INDICATIONS: History of stroke TECHNIQUE: Noncontrast images were performed earlier in the day and not repeated. After the administration of intravenous contrast, 1 mm thick sections acquired from the aortic arch through the [place] of [place]. Post-contrast 4.5 mm thick sections then re-acquired from the foramen magnum to the vertex. 3-dimensional wqakrwp-bvpanhhqv-nphqkfawzw (MIP) and/or volume rendering reformats were acquired of the central intracranial vasculature and neck separately. COMPARISON: [facility], CT, CT HEAD/BRAIN WO CON, 11/27/2021, 14:14. FINDINGS: Image quality: Excellent. BRAIN: CSF spaces: Ventricles are normal in size and shape. Basal cisterns are patent. No extra-axial fluid collections. Brain: No midline shift. No intracranial bleeds or masses. Romero-white matter interface appears intact. Skull and face: Calvarium and facial bones appear intact, without suspicious lesions. Orbits appear normal. Sinuses: Sinuses and mastoids are clear. HEAD CT ANGIOGRAPHY: Anterior circulation: Intracranial internal carotid arteries are normal in size and flow. The flow within the paired anterior cerebral arteries is normal and symmetric. The flow within the middle cerebral arteries is normal and symmetric. The anterior communicating artery is seen. No aneurysms are seen. Posterior circulation: The distal left vertebral artery largely terminates in the left posterior inferior cerebellar artery. The right V4 segment is within normal limits. There is a normal appearing basilar artery. There is a prominent right posterior communicating artery seen, with an accompanying diminutive right P1 segment. This is attributed to a type origin of the right posterior cerebral artery, which is considered to be a normal developmental variant of typically no clinical consequence. Flow within the posterior cerebral arteries is normal and symmetric. No aneurysms are seen. NECK CT ANGIOGRAPHY: Carotid system: The great vessels demonstrate a conventional anatomy as they arise from the aortic arch. The origins of the common carotid arteries appear patent. The common carotid arteries demonstrate normal caliber and courses. The bifurcation regions demonstrate atherosclerotic irregularity and calcification. On the left, there is approximately 60% narrowing seen involving the proximal internal carotid artery, with a portion of the narrowing caused by soft plaque. On the right, there is approximately 50% narrowing involving the proximal internal carotid artery. The more distal internal carotid arteries demonstrate normal course and caliber. Posterior circulation: The origins of the vertebral arteries both appear widely patent. The more superior extracranial portions of both vertebral arteries also demonstrate normal courses and calibers. The right vertebral artery is dominant to the left. Soft tissues: Visualized neck soft tissues demonstrate no suspicious abnormalities. Bones: No suspicious bony lesions. Visualized cervical spine appears normally aligned. Mild cervical spine degenerative change can be seen. IMPRESSION: No significant intracranial arterial abnormality is seen. If there is strong clinical suspicion for an acute stroke, please consider a brain MRI for further evaluation, as it is more sensitive (assuming that there is no contraindication to MRI). Focal calcification and irregularity can be seen involving both proximal internal carotid arteries, with a more severe stenosis on the left than on the right. Any quantitative measurements of stenosis were performed using NASCET criteria. Dictated by: Shay Garcia M.D. on 11/27/2021 at 14:13 Approved by: Shay Garcia M.D. on 11/27/2021 at 14:17
[2021-11-27 14:17] LABS: Prothrombin Time 11.2 SECONDS (10.1-12.7)
[2021-11-27 14:20] LABS: PTT Partial Thromboplastin Tim 33 SECONDS (26.4-36.2)
[2021-11-27 14:26] LABS: Alanine Aminotransferase 36 IU/L (<50); Albumin 4.5 g/dL (3.5-5.0); Albumin Globulin Ratio 1.5 (1.0-2.8); Alkaline Phosphatase 87 U/L (38-126); Aspartate Aminotransferase 29 IU/L (17-59); Bilirubin Total 0.4 mg/dL (0.2-1.3); Blood Urea Nitrogen 17 mg/dL (9-20); Carbon Dioxide 30 mmol/L (22-32); Chloride 100 mmol/L (98-107); Creatine Kinase 52 U/L (55-170); Estimated Glomerular Filt Rate > 60.0 mL/min (>60); Ethanol (ETOH) < 10 mg/dL; Glucose 153 mg/dL (70-100); HEMOLYSIS < 15 (0-50); Magnesium 1.9 mg/dL (1.6-2.3); Sodium 138 mmol/L (137-145); Total Protein 7.5 g/dL (6.3-8.2)
[2021-11-27 14:32] LABS: Lipase 2781 U/L (23-300)
[2021-11-27 14:36] LABS: Troponin I < 0.012 ng/mL (0.01-0.034)
[2021-11-27] MEDS: ONDANSETRON 4 MG/2 ML INJ IV (15:10)
[2021-11-27 15:11] LABS: COVID19 -Nasal RAPID Negative (Negative)
[2021-11-27] MEDS: ASPIRIN EC 325 MG TABLET PO (17:33)
[2021-11-27] MEDS: CLOPIDOGREL 75 MG TABLET 300 MG PO (17:35)
--- NOTE | 2021-11-27 17:38 | PM.CN ---
History of Present Illness Consult details Date Patient Seen: 11/27/21 Time Patient Seen: 16:45 Chief complaint: Poss stroke. Hx of strokes Narrative: Mr. Tera Lee is a 54-year-old male with history significant for hypertension, CVA with L sided weakness, hyperlipidemia gout, kidney stones and trigeminal neuralgia who presented with possible right sided weakness lasting about a total of 3 hours. Patient states symptoms have currently resolved and that he is back to baseline. He reports no numbness during the episode, denied chest pain, palpitations, and shortness of breath. He did report a headache behind his left eye that did not resolve with his home oxycodone but thinks it may be related to some chronic neck pain he has. He reports he takes oxycodone daily for chonric pain. In the emergency room, the patient's blood pressure was mildly low but not hypotensive, he was mildly bradycardic but asymptomatic. The remainder of his vital signs were unremarkable. Initial laboratory evaluation did not reveal any acute findings. Meds Home Medications and Allergies Home Medications Medication Instructions Recorded Confirmed Type amlodipine 10 mg tablet 10 mg PO DAILY 02/13/20 11/27/21 History allopurinol 300 mg tablet 300 mg PO DAILY 02/17/20 11/27/21 History aspirin 81 mg chewable tablet 81 mg PO DAILY #30 tab 11/27/21 11/27/21 Rx atorvastatin 80 mg tablet 80 mg PO DAILY #30 tab 11/27/21 11/27/21 Rx clopidogrel 75 mg tablet (Plavix) 75 mg PO DAILY 21 Days #21 tab 11/27/21 11/27/21 Rx empagliflozin 25 mg tablet 25 mg PO DAILY 11/27/21 11/27/21 History losartan 100 mg tablet 100 mg PO DAILY 11/27/21 11/27/21 History metformin 1,000 mg tablet 1,000 mg PO BID 11/27/21 11/27/21 History metoprolol succinate 25 mg 25 mg PO DAILY 11/27/21 11/27/21 History tablet,extended release 24 hr spironolactone 50 mg tablet 50 mg PO DAILY 11/27/21 11/27/21 History Allergies Allergy/AdvReac Type Severity Reaction Status Date / Time Penicillins Allergy Severe Anaphylaxis Verified 11/27/21 21:30 Review of Systems Review of Systems Narrative: All other systems reviewed with the patient and are negative unless otherwise stated. Exam Vital Signs (past 8 hours): - 11/27/21 13:53 11/27/21 13:55 11/27/21 14:00 Temperature Pulse Rate 102 H 58 L 58 L Respiratory Rate 16 Blood Pressure 116/67 Pulse Oximetry 100 100 11/27/21 14:40 11/27/21 14:44 11/27/21 15:00 Temperature 97.8 F Pulse Rate 55 L 57 L 56 L Respiratory Rate 18 16 Blood Pressure 103/55 L Pulse Oximetry 98 99 98 11/27/21 15:01 11/27/21 15:30 11/27/21 16:00 Temperature Pulse Rate 54 L 56 L 57 L Respiratory Rate 12 20 15 Blood Pressure 114/59 L 93/57 L 101/59 L Pulse Oximetry 98 98 99 11/27/21 16:34 11/27/21 16:36 11/27/21 17:00 Temperature Pulse Rate 60 55 L 52 L Respiratory Rate 42 H 13 13 Blood Pressure 116/58 L Pulse Oximetry 85 L 100 95 11/27/21 17:01 Temperature Pulse Rate 54 L Respiratory Rate 12 Blood Pressure 108/55 L Pulse Oximetry 96 Narrative Exam Narrative: General:? Middle-aged gentleman sitting in bed and in no acute distress, well-developed, well-nourished HEENT: Normocephalic, atraumatic. External ears without defect. Pupils equal, round, and reactive to light.? Anicteric sclerae, moist conjunctivae, and no lid lag.? Oropharynx free of erythema and cobble stoning with moist mucosa. Neck: Supple with full range of motion. No JVD Cardiovascular: Regular rate and rhythm without murmurs, rubs, or gallops appreciated. Pulmonary: Clear to auscultation bilaterally without crackles, wheezes, or rhonchi.? Normal respiratory effort with no use of accessory muscles. Abdomen:? Soft, obese, bowel sounds present, nontender, nondistended. No hepatosplenomegaly or masses appreciated. Extremities: No clubbing, cyanosis, or edema Neurological: Cranial nerves grossly intact.? Chronic left-sided hemiparesis with slight facial droop due to previous CVA. R side without weakness or numbness currently. No ataxia on R. Psychiatric: Normal mood and affect. Alert and oriented to person, place, and time. Objective Labs Result Diagrams: 11/27/21 14:00 11/27/21 14:00 Labs: Laboratory Results - last 24 hr 11/27/21 11/27/21 11/27/21 14:00 14:00 14:00 WBC 9.4 RBC 4.82 Hgb 10.8 L Hct 35.3 L MCV 73.2 L MCH 22.4 L MCHC 30.6 RDW 17.7 H Plt Count 348 Neut % (Auto) 70.5 Lymph % (Auto) 21.6 L Blount % (Auto) 6.7 Eos % (Auto) 0.4 L Baso % (Auto) 0.8 Neut # (Auto) 6600 Lymph # (Auto) 2000 Blount # (Auto) 600 Eos # (Auto) 0 Baso # (Auto) 100 PT 11.2 INR 1.0 APTT 33 Sodium 138 Potassium 5.0 Chloride 100 Carbon Dioxide 30 BUN 17 Creatinine 1.06 Estimated GFR > 60.0 BUN/Creatinine Ratio 16.0 Glucose 153 H Calcium 9.0 Magnesium 1.9 Total Bilirubin 0.4 AST 29 ALT 36 Alkaline Phosphatase 87 Total Creatine Kinase 52 L CK-MB (CK-2) TNP CK-MB (CK-2) Rel Index TNP Troponin I < 0.012 Total Protein 7.5 Albumin 4.5 Globulin 3.0 Albumin/Globulin Ratio 1.5 Lipase 2781 H Ethyl Alcohol < 10 SARS-CoV-2 (PCR) 11/27/21 14:00 WBC RBC Hgb Hct MCV MCH MCHC RDW Plt Count Neut % (Auto) Lymph % (Auto) Blount % (Auto) Eos % (Auto) Baso % (Auto) Neut # (Auto) Lymph # (Auto) Blount # (Auto) Eos # (Auto) Baso # (Auto) PT INR APTT Sodium Potassium Chloride Carbon Dioxide BUN Creatinine Estimated GFR BUN/Creatinine Ratio Glucose Calcium Magnesium Total Bilirubin AST ALT Alkaline Phosphatase Total Creatine Kinase CK-MB (CK-2) CK-MB (CK-2) Rel Index Troponin I Total Protein Albumin Globulin Albumin/Globulin Ratio Lipase Ethyl Alcohol SARS-CoV-2 (PCR) Negative [facility] Medical History CVA (cerebral vascular accident) Gout Hemiparesis affecting left side as late effect of cerebrovascular accident (CVA) Hyperlipidemia Hypertension Kidney stones Obesity (BMI 30.0-34.9) Trigeminal neuralgia Surgical History History of excision of mass History of excision of pilonidal cyst History of incision and drainage Status post gastric bypass for obesity Family History Father Stroke Dementia Mother Cancer Social History household members: spouse Tobacco & Substance Use Smoking Status: Never smoker Assessment & Plan Assessment & Plan narrative: Mr. Tera Lee is a 54-year-old male with history significant for hypertension, CVA with L sided weakness, hyperlipidemia gout, kidney stones and trigeminal neuralgia who presented with possible right sided weakness lasting about a total of 3 hours. 1. TIA with R sided weakness. - Patient is reasonably safe for discharge home. Discussed risks and benefits of observation for TIA vs discharge home with patient and spouse. There was notable disagreement between them but patient elected for discharge home. Recommend asa 81 mg, plavix 75 mg x21 days with loading dose here (300 mg). Increase statin to 80 mg nightly. - MRI at this time would not currently change management coordinator as medications will stay the same regardless of if this were a stroke or not. Did discuss one benefit of admission will be definitive diagnosis and if new stroke symptoms occur he could have more promt treatment. - return precautions provided including worsening stroke symptoms. - Prompt PCP follow up ideally before the end of the week. 2. HTN - would recommend lowering of some of his medications with PCP given mild bradycardia and hypotension here, though he appears asymptomatic. It may also be that the patient becomes hypotensive and develops symptoms. 3. HLD - increase statin to 80 mg as noted above. 4. gout, chronic pain - no current changes recommended to home medications other than noted above in problem 1 I have utilized all available immediate resources to obtain, update, or review the patient's current medications. Code: Full, surrogate decision maker is patient's Time Spent With Patient Critical Care time: I spent a total of [] minutes of critical care time on this patient's care today; this time is exclusive of procedural time.
[2021-11-27] MEDS: ATORVASTATIN 20 MG TABLET 80 MG PO (17:40)
== END 2021-11-27 18:05 | disposition home or self-care (01) ==
PROVIDERS: Emergency Provider Emergency Medicine
DX: G45.9 Transient cerebral ischemic attack, unspecified (principal)
CPT/HCPCS: 36415; 70450; 70496; 70498; 80053; 80320; 81003; 82550; 83690; 83735; 84484; 85025; 85610; 85730; 87635; 93005; C9803; J2405; Q9967

== ENCOUNTER 2021-11-27 21:18 | Observation (INO) | payer OTHER, SELFPAY ==
[2021-11-27 21:27] VITALS: BP 119/76; PULSE 56; RESP 16; TEMP 35.8; O2SAT 99; BMI 31.6
--- NOTE | 2021-11-27 21:32 | DI.CT.S_ITS ---
PROCEDURE: CT HEAD/BRAIN WO CON INDICATIONS: worsening weakness, prior cva with left sided TECHNIQUE: Noncontrast 4.5 mm thick angled axial sections acquired from the foramen magnum to the vertex, with coronal and sagittal reformats. For radiation dose reduction, the following was used: automated exposure control, adjustment of mA and/or kV according to patient size. COMPARISON: Merged With [facility], CT, CT HEAD/BRAIN WO CON, 11/27/2021, 14:14. Merged With [facility], CT, CT ANGIO HEAD AND NECK, 11/27/2021, 14:14. FINDINGS: Image quality: Excellent. CSF spaces: Basal cisterns are patent. No extra-axial fluid collections. The ventricles are symmetric in size and shape. Brain: No intracranial bleeds or masses. There is cerebral volume loss for age, with resultant ventricular and sulcal prominence. Old left caudate lacune. There are periventricular and deep white matter chronic small vessel ischemic changes. There is intracranial internal carotid artery atherosclerosis. Skull and face: Calvarium and visualized facial bones appear intact, without suspicious lesions. Sinuses: Visualized sinuses and mastoids are clear. IMPRESSION: Stable findings. Old left caudate lacunar infarction. No evidence acute stroke, hemorrhage, or mass. Comment: If clinically suspect acute infarct, consider brain MRI. Dictated by: Jayson Zavala M.D. on 11/27/2021 at 22:03 Approved by: Jayson Zavala M.D. on 11/27/2021 at 22:04
[2021-11-27 21:44] VITALS: BP 107/67; PULSE 59; O2SAT 97
[2021-11-27 22:00] VITALS: PULSE 59; RESP 14
--- NOTE | 2021-11-27 22:27 | ED_ITS ---
HPI - Neuro Symptoms/Deficit General Chief Complaint: Neuro Symptoms/Deficit Stated Complaint: pos. stroke Time Seen by Provider: 11/27/21 21:32 Mode of arrival: Family Vehicle History of Present Illness HPI Narrative: 55-year-old female history of multiple medical problems previous strokes with left-sided deficits, presenting today for concern for TIA for the 2nd time. Was seen evaluated earlier this afternoon. He apparently has not been taking aspirin or Plavix for possible TIA. He started having headache last evening slept well last night but woke up this morning and still did not feel quite right. He was able to get around which he typically does but noted that has right-sided was week which is new for him. He was evaluated greater than 4-1/2 hours after onset of symptoms. Patient was evaluated by the hospitalist in the emergency department and decided he did not need admission to the hospital and was released. Patient went home was concerned that his right-sided weakness was getting worse. Patient feels like he might be at baseline but is really unsure. His for he normally is able to ambulate and dress himself and get around health however he needed help getting out of the vehicle this time. 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 On Anticoagulants: Yes Related Data Home Medications Medication Instructions Recorded Confirmed amlodipine 10 mg tablet 10 mg PO DAILY 02/13/20 11/27/21 allopurinol 300 mg tablet 300 mg PO DAILY 02/17/20 11/27/21 empagliflozin 25 mg tablet 25 mg PO DAILY 11/27/21 11/27/21 losartan 100 mg tablet 100 mg PO DAILY 11/27/21 11/27/21 metformin 1,000 mg tablet 1,000 mg PO BID 11/27/21 11/27/21 metoprolol succinate 25 mg 25 mg PO DAILY 11/27/21 11/27/21 tablet,extended release 24 hr spironolactone 50 mg tablet 50 mg PO DAILY 11/27/21 11/27/21 Previous Rx's Medication Instructions Recorded aspirin 81 mg chewable tablet 81 mg PO DAILY #30 tab 11/27/21 atorvastatin 80 mg tablet 80 mg PO DAILY #30 tab 11/27/21 clopidogrel 75 mg tablet (Plavix) 75 mg PO DAILY 21 Days #21 tab 11/27/21 Allergies Allergy/AdvReac Type Severity Reaction Status Date / Time Penicillins Allergy Severe Anaphylaxis Verified 11/27/21 21:30 Review of Systems Review of Systems Narrative: GENERAL: Denies chills, fatigue, malaise, fever, sweats, travel HEENT: Denies sinus pain, ear pain, sore throat, difficulty swallowing, neck pain RESPIRATORY: Denies dyspnea, cough, wheezing, hemoptysis, sputum. CARDIOVASCULAR: Denies chest pain, palpitations, orthopnea, edema GASTROINTESTINAL: Denies nausea, vomiting, abdominal pain, diarrhea, constipation, melena. : Denies dysuria, frequency, incontinence, hematuria, urinary retention, flank pain. MUSCULOSKELETAL: Denies weakness, joint pain, or bony pain SKIN: No rash, no erythema, no pruritus NEUROLOGIC: See HPI PSYCHIATRIC: No concerning psychosocial issues. 12 point review of systems is negative except for those stated above and HPI Hematologic/Lymphatic On Anticoagulants: Yes Patient History Medical History CVA (cerebral vascular accident) Gout Hemiparesis affecting left side as late effect of cerebrovascular accident (CVA) Hyperlipidemia Hypertension Kidney stones Obesity (BMI 30.0-34.9) Trigeminal neuralgia Surgical History History of excision of mass History of excision of pilonidal cyst History of incision and drainage Status post gastric bypass for obesity Family History Father Stroke Dementia Mother Cancer Social History household members: spouse Smoking Status: Never smoker Smoking Status: Never smoker alcohol intake frequency: 0-2 drinks per day Substance Use Type: does not use Exam Initial Vital Signs Initial Vital Signs: Vital Signs Temperature 96.5 F L 11/27/21 21:27 Pulse Rate 56 L 11/27/21 21:27 Respiratory Rate 16 11/27/21 21:27 Blood Pressure 119/76 11/27/21 21:27 Pulse Oximetry 99 11/27/21 21:27 GENERAL: Alert pleasant well-appearing 55-year-old maleand in no acute distress. HEENT: Head atraumatic,EOMI, pupils reactive, face symmetric, moist mucous membranes CARDIOVASCULAR: Regular rate and rhythm without murmurs, rubs or gallops. RESPIRATORY: Breath sounds equal bilaterally, no wheezes rales or rhonchi. ABDOMEN: Soft, nontender. Normoactive bowel sounds all 4 quadrants. No guarding or rebound. EXTREMITIES: Normal range of motion, no clubbing or edema. Neurovascularly intact NEUROLOGICAL: Alert and oriented times for chronic left-sided deficits, no facial droop noted able to move right hand good [id number] with right side a nd heel to walters with right side. SKIN: Warm, dry, no laceration, no petechiae, no rashes or lesions. Course Orders Ordered: ED Orders 11/27/21 21:32 CT head/brain wo con Stat EKG-12 Lead Stat 11/27/21 22:44 Consult to Discharge Planning Routine Consult to Occupational Therapy Evaluate & Treat Consult to Physical Therapy Evaluate & Treat Consult to Speech Therapy Evaluate & Treat MR stroke Stat 11/27/21 22:51 Consult to Dietitian, Adult Routine 11/28/21 05:00 Complete Blood Count AUTO DIFF Routine Hemoglobin A1C% w Est Avg Glu Routine Lipid Panel Routine Magnesium Routine NT-proBNP (BNP-Adult 18+) Routine Prothrombin Time INR Routine Thyroid Stimulating Hormone Routine Troponin I Routine Acetaminophen (Acetaminophen 325 Mg Tablet) 650 mg PO Q6HR PRN PRN Reason: Fever/Mild Pain (1-3) Allopurinol (Allopurinol 300 Mg Tablet) 300 mg PO DAILY [facility] Amlodipine Besylate (Amlodipine 5 Mg Tablet) 10 mg PO DAILY [facility] Aspirin (Aspirin 81 Mg Chew Tab) 81 mg PO DAILY [facility] Atorvastatin Calcium (Atorvastatin 20 Mg Tablet) 80 mg PO DAILY [facility] Clopidogrel Bisulfate (Clopidogrel 75 Mg Tablet) 75 mg PO DAILY [facility] Dextrose (Dextrose 50 % In Water 25 Gm/50 Ml Syringe) 25 gm IV PRN PRN PRN Reason: Hypoglycemia Enoxaparin Sodium (Enoxaparin 40 Mg/0.4 Ml Syringe) 40 mg SUBCUT DAILY [facility] Hydrochlorothiazide (Hydrochlorothiazide 25 Mg Tablet) 25 mg PO BID [facility] Ibuprofen (Ibuprofen 600 Mg Tablet) 600 mg PO Q6H PRN PRN Reason: fever or pain Insulin Human Lispro (Insulin Lispro 100 Unit/Ml 3ml Vial) 0 unit SUBCUT ACHS [facility]; Protocol Naloxone HCl (Naloxone 0.4 Mg/Ml Vial) 0.2 mg IV Q2MIN PRN PRN Reason: Opiate Reversal Non-Formulary Medication (Omeprazole) 20 mg PO BID [facility] Vital Signs Vital signs: Vital Signs - 8 hr 11/27/21 21:27 11/27/21 21:44 11/27/21 22:00 Temperature 96.5 F L Pulse Rate 56 L 59 L 59 L Respiratory Rate 16 14 Blood Pressure 119/76 107/67 Pulse Oximetry 99 97 11/27/21 22:48 Temperature Pulse Rate Respiratory Rate Blood Pressure Pulse Oximetry 97 MDM - Neuro Symptoms/Deficit Lab Data Result diagrams: 11/27/21 23:50 11/27/21 23:[address] scan - head: Radiologist's Impression: PROCEDURE:? CT HEAD/BRAIN WO CON ? INDICATIONS:? worsening weakness, prior cva with left sided ? TECHNIQUE:? Noncontrast 4.5 mm thick angled axial sections acquired from the foramen magnum to the vertex, with coronal and sagittal reformats.? For radiation dose reduction, the following was used:? automated exposure control, adjustment of mA and/or kV according to patient size.? ? COMPARISON:? [facility], CT, CT HEAD/BRAIN WO CON, 11/27/2021, 14:14.? [facility], CT, CT ANGIO HEAD AND NECK, 11/27/2021, 14:14. ? FINDINGS:? Image quality:? Excellent.? ? CSF spaces:? Basal cisterns are patent.? No extra-axial fluid collections.? The ventricles are symmetric in size and shape.? ? Brain:? No intracranial bleeds or masses.? There is cerebral volume loss for age, with resultant ventricular and sulcal prominence.? Old left caudate lacune.? There are periventricular and deep white matter chronic small vessel ischemic changes.? There is intracranial internal carotid artery atherosclerosis.? ? Skull and face:? Calvarium and visualized facial bones appear intact, without suspicious lesions.? ? Sinuses:? Visualized sinuses and mastoids are clear.? ? IMPRESSION:? Stable findings.? Old left caudate lacunar infarction.? No evidence acute stroke, hemorrhage, or mass. ? Comment:? If clinically suspect acute infarct, consider brain MRI. ? ? Dictated by: Jayson Zavala M.D. on 11/27/2021 at 22:03 ECG Data Interpretation: Normal sinus rhythm rate 63 TX interval 174 QRS [address] changes MDM Narrative Medical decision making narrative: Patient has history of multiple CVAs, he apparently is noncompliant with anti platelet medication which is likely contributing to his symptoms. At this time is difficult this a if he is having symptoms but is obviously weaker. Patient would benefit from monitoring and MRI tomorrow. He is out of window for tPA previous CT angio does not show any new large vessel occlusion. NIH Stroke Scale difficult due to prior deficit Jeremy SULLIVAN, admits Discharge Plan Departure Patient Disposition: Admitted as Observation Clinical Impression: Transient cerebral ischemia Admit Date/Time: 11/27/21 22:53 Admit Provider: Torie Luna
--- NOTE | 2021-11-27 22:44 | DI.MRI.S_ITS ---
PROCEDURE: MR HEAD/BRAIN WO CON INDICATIONS: HX CVA x3, possible new CVA/TIA TECHNIQUE: Non-contrast axial T1 spin echo, axial T2 fast spin echo, sagittal and axial FLAIR, coronal T2 fast spin echo, axial gradient echo, axial diffusion and ADC through the brain. COMPARISON: [facility], CT, CT HEAD/BRAIN WO CON, 11/27/2021, 21:40. [facility], CT, CT ANGIO HEAD AND NECK, 11/27/2021, 14:14. [facility], CT, CT HEAD/BRAIN WO CON, 11/27/2021, 14:14. CT, CT BRAIN WO CON, 05/27/2016, 13:09. FINDINGS: Image quality: Excellent. CSF spaces: Ventricles appear symmetric in size and shape. Basal cisterns are patent. No extra-axial fluid collections. Brain: No intracranial bleeds or mass effects. There are periventricular and deep white matter chronic small vessel ischemic changes. Brainstem appears normal. Diffusion-weighted images show foci of hyperintensity in multiple locations: foci within the right frontal lobe extending to the margin of the anterior corpus callosum as well as punctate foci within the right posterior parietal occipital lobe. These areas correspond to hypointense ADC signal. insults. Normal intravascular flow voids are present. Previous areas of ischemia within the left basal ganglia as well as internal capsule are noted. Skull and face: Calvarial bone marrow is normal in signal. Orbits are normal. Sinuses: Sinuses and mastoids are clear. IMPRESSION: Right frontal and parietal occipital foci of diffusion hyperintensity as described above most consistent with subacute ischemia. No superimposed hemorrhage. Chronic microvascular ischemic change or versus are also noted, more prominent than expected for patient age. Dictated by: Devora Yadav M.D. on 11/28/2021 at 14:17 Approved by: Devora Yadav M.D. on 11/28/2021 at 14:20
[2021-11-27 22:48] VITALS: O2SAT 97
--- NOTE | 2021-11-27 22:56 | PM.HP.1 ---
History of Present Illness History of Present Illness Date Patient Seen: 11/27/21 Time Patient Seen: 22:56 Chief complaint: TIA/POS.STROKE Narrative: Tera Castaneda is a 55-year-old male with history significant for hypertension, CVA with residual left-sided deficit, NIDDM 2, hyperlipidemia gout, kidney stones and trigeminal neuralgia who pesented to the ED for concerns of a potential stroke.? Yesterday he had a headache.? He went to bed last night and slept well.? Woke up this morning continue to have slight headache, able to walk around.?When he tried to get up from his chair noticed that his right side was weak and he could stand.? This is not baseline for him.? Patient's also stated that she could not lift him up with his right hand because of his weakness.?The patient arrived greater than 4.5 hours after the onset of his symptoms.?Hx of CVA left sided deficits: At baseline he is able to dress himself and feed himself and get around the house hand ambulate.?Patient is non compliant of his medicaitons to include aspirin, lipitor, and Plavix. By the time 1410: ED Dr. Roblero had evaluated him, symptoms had greatly improved. 11/27/[address] Hernandez Hospitalist Consulted in ED and determined the patient could return home with precautions. Per Dr. Hernandez:TIA - safe for discharge home. Discussed risks and benefits of observation for TIA vs discharge home with patient and spouse. There was notable disagreement between them but patient elected for discharge home. Recommend asa 81 mg, plavix 75 mg x21 days with loading dose here (300 mg). Increase statin to 80 mg nightly, MRI at this time would not currently change management coordinator, return precautions provided including worsening stroke symptoms, Prompt PCP follow up ideally before the end of the week. Patient returned to the ED at approximately 2100 at the urging of his . The reported to Dr. Lowe that she endorsed continued worsening right sided weakness, that worsened ability to transfer the patient, difficulty standing, and right sided facial droop. Dr. Lowe did not appreciate any right sided weakness, nor change from previously documented physical assessment. She did note however that the patient did require assistance getting out of the car to come into the ED. The patients was insistent that her be admitted, due to right sided weakness. Upon admit exam the patient denies chest pain, shortness of breath, abdominal pain, nausea, vomiting, diarrhea, chills, fever, headache, changes in vision, cough, URI symptoms, urinary symptoms, hematemesis, hematuria, melena, new or different weakness numbness or tingling, recent head injury, loss of consciousness, illness injury or trauma. Upon admit exam the patient is a very poor historian, and confused. He was alert and orientated but in regards to HPI, and ROS he constantly changed his story. The patient initially told me that he is taking all his medications and is compliant, he then told me he has been out of his medications for a week, then he was unable to tell me what his medications were. The patient initially complained of left-sided weakness, when I advised him that that was residual from a previous CVA. He then advised that he was asymptomatic, and was back to baseline. Then later on in the conversation he went on to say that he was having right-sided weakness in his lower extremities but not in his brain. Suffice to say the patient appeared very confused and a poor historian. Patient's vitals upon admit temp 96.5?, BP 107/67, HR 59, R 14, O2 saturation 97% on room air. I reviewed the patient's blood work and imaging from prior in the day. HGB 10.8, HCT 35.3. Patient's chemistry panels were grossly normal with the exception of glucose of 153. Patient was noted to have an ABCD 2 score: 3, urinalysis was negative, troponin was within normal limits, lipase was 2781, EtOH<10. Patient's head CT was negative for any intracranial processes. Patient's head neck CTA was also negative. Patient's EKG demonstrated a sinus rhythm with a rate of [address] or T-wave changes. Patient's initial NIH score:6 upon admit to ED. cervical eyes unable to obtain accurate NIH score due to patient's chronic left-sided weakness. Patient admitted for neurological deficit (right-sided weakness, transient, resolved) TIA versus CVA, in the setting of history of strokes x3, and medication noncompliance. Patient History Medical History CVA (cerebral vascular accident) Gout Hemiparesis affecting left side as late effect of cerebrovascular accident (CVA) Hyperlipidemia Hypertension Kidney stones Obesity (BMI 30.0-34.9) Trigeminal neuralgia Surgical History History of excision of mass History of excision of pilonidal cyst History of incision and drainage Status post gastric bypass for obesity Family & Social History Family History Father Stroke Dementia Mother Cancer Social History: household members spouse Safety & Behavioral: Feels Safe in Current Yes Environment Been Physically Hurt or No Threatened By a Person Tobacco & Substance use: Smoking Status Never smoker alcohol intake frequency 0-2 drinks per day Substance Use Type does not use Meds Home Medications and Allergies Home Medications Medication Instructions Recorded Confirmed Type amlodipine 10 mg tablet 10 mg PO DAILY 02/13/20 11/27/21 History allopurinol 300 mg tablet 300 mg PO DAILY 02/17/20 11/27/21 History aspirin 81 mg chewable tablet 81 mg PO DAILY #30 tab 11/27/21 11/27/21 Rx atorvastatin 80 mg tablet 80 mg PO DAILY #30 tab 11/27/21 11/27/21 Rx clopidogrel 75 mg tablet (Plavix) 75 mg PO DAILY 21 Days #21 tab 11/27/21 11/27/21 Rx empagliflozin 25 mg tablet 25 mg PO DAILY 11/27/21 11/27/21 History losartan 100 mg tablet 100 mg PO DAILY 11/27/21 11/27/21 History metformin 1,000 mg tablet 1,000 mg PO BID 11/27/21 11/27/21 History metoprolol succinate 25 mg 25 mg PO DAILY 11/27/21 11/27/21 History tablet,extended release 24 hr spironolactone 50 mg tablet 50 mg PO DAILY 11/27/21 11/27/21 History Allergies Allergy/AdvReac Type Severity Reaction Status Date / Time Penicillins Allergy Severe Anaphylaxis Verified 11/27/21 21:30 Review of Systems Review of Systems Narrative: All 12 point systems reviewed with the patient and are negative except otherwise documented. Exam Vital Signs (past 8 hours): - 11/27/21 21:27 11/27/21 21:44 11/27/21 22:00 Temperature 96.5 F L Pulse Rate 56 L 59 L 59 L Respiratory Rate 16 14 Blood Pressure 119/76 107/67 Pulse Oximetry 99 97 Oxygen Delivery Method Room Air Narrative Exam Narrative: General:? Middle-aged gentleman sitting in bed and in no acute distress, well-developed, well-nourished HEENT: Normocephalic, atraumatic. External ears without defect. Pupils equal, round, and reactive to light.? Anicteric sclerae, moist conjunctivae, and no lid lag.? Oropharynx free of erythema and cobble stoning with moist mucosa. Neck: Supple with full range of motion. No JVD Cardiovascular: Regular rate and rhythm without murmurs, rubs, or gallops appreciated. Pulmonary: Clear to auscultation bilaterally without crackles, wheezes, or rhonchi.? Normal respiratory effort with no use of accessory muscles. Abdomen:? Soft, obese, bowel sounds present, nontender, nondistended. No hepatosplenomegaly or masses appreciated. Extremities: No clubbing, cyanosis, or edema Neurological: Cranial nerves grossly intact.? Chronic left-sided hemiparesis with slight facial droop due to previous CVA. R side without weakness or numbness currently. No ataxia on R. Psychiatric: Normal mood and affect. Alert and oriented to person, place, and time. Objective Labs Result Diagrams: 11/27/21 23:50 11/27/21 23:50 Assessment & Plan Assessment & Plan narrative: Tera Castaneda is a 55-year-old male with history significant for hypertension, CVA x 3 with residual left-sided deficit, NIDDM 2, hyperlipidemia, gout, kidney stones and trigeminal neuralgia who pesented to the ED for concerns for right-sided deficits/weakness. The patient was consulted and evaluated by hospitalist Dr. French and found to be appropriate for discharge home with precautions. Patient was then brought back in by his who had continued concerns of worsening right-sided weakness. Patient is being admitted for further evaluation to rule out stroke with an MRI tomorrow. 1. Neurological deficit (right-sided weakness) acute, transient, resolved, present on admission -patient is admitted hemodynamically stable, in no distress, no right-sided weakness or deficit appreciated on admit. -patient does have a history strokes x3, and medication noncompliance to include ASA, Lipitor, Plavix. -I suspect that the patient may be experiencing hypotension/bradycardia which is contributing to his over progressive decline from previous 3 CVA's. And likely exacerbated by medication non-compliance. -patient admitted under stroke protocol: Aspiration, fall precaution -neuro checks and NIH as needed -bedside swallow ordered -heart healthy diet -reviewed previous ER documentation -PT, OT, speech therapy -BNP, TSH, lipid panel, magnesium -patient had a lipase of 2781, will order repeat Lipase, amylase, CRP, uric acid. 2. NIDDM 2, acute on chronic, with presenting hyperglycemia, present on admission -patient admitted under diabetic protocol -A1c ordered, glucose checks a.c. HS -continue metformin, Jardiance -low-dose sliding scale as needed 3. Essential hypertension, chronic, present on admission -Patient is hypotensive on admission BP's 107/67, 104/25, 108/55, 101/59 -continue amlodipine, losartan, metoprolol, spirolactone -orthostatics Q shift while awake -concerned that patient may be having hypotension that is contributing to weakness. -may need to decrease or change patient's amlodipine. -monitor blood pressures. 4. History of CVA with left hemiparesis, chronic, present on admission. -patient typically mobilizes electric wheelchair but uses his right hand to manage controls on the left arm rest. -PT and OT to consult, evaluate and treat. 5. Gout, hyperuricemia, chronic, present on admission, active -patient on hydrochlorothiazide increasing risk factor for hyperuricemia and associated pro inflammatory effect. With history of gout and takes colchicine during flares. -uric acid ordered -continue allopurinol 5. Hyperlipidemia, chronic, present on admission -Continue atorvastatin -will obtain a lipid panel. 6. Obesity, as evidence by BMI of 31.6, acute on chronic, present on admission -patient is status post gastric bypass. -request dietitian consult.? Code status: FULL CODE Surrogate decision maker: /spouse COVID PCR:Negative COVID vaccination: Unknown DVT/VTE prophylaxis: Lovenox and SCDs Disposition: Patient admitted for observation expected length of stay less than 2 midnights I have utilized all available immediate resources to obtain, update, or review the patient's current medications. I confirmed that the patient's advanced care plan is present, Code status is documented and/or surrogate decision maker is listed in the patient's medical record. Time Spent With Patient Critical Care time: I spent a total of [] minutes of critical care time on this patient's care today; this time is exclusive of procedural time.
[2021-11-27 22:58] VITALS: BMI 31.6
[2021-11-27 23:00] VITALS: BP 117/86; BP 129/73; BP 134/87; PULSE 64; PULSE 71; PULSE 72; RESP 18; TEMP 36.7; O2SAT 99
--- NOTE | 2021-11-27 23:04 | PC.NURSE ---
Pt reports that spouse thought I was weaker when walking at home tonight. Upon assessment/arrival pt verbally reports he feels at baseline. NIH 6 as his baseline deficit from previous strokes.
[2021-11-28] VITALS (14 sets, daily range): BP systolic 93–126; BP diastolic 53–88; PULSE 55–79; RESP 16–18; TEMP 36–37.3; O2SAT 97–98
[2021-11-28 00:15] LABS: Alanine Aminotransferase 32 IU/L (<50); Albumin 4.2 g/dL (3.5-5.0); Albumin Globulin Ratio 1.6 (1.0-2.8); Alkaline Phosphatase 91 U/L (38-126); Amylase 144 U/L (30-110); Aspartate Aminotransferase 27 IU/L (17-59); BUN Creatinine Ratio 16.1 (6-22); Bilirubin Total 0.4 mg/dL (0.2-1.3); Blood Urea Nitrogen 18 mg/dL (9-20); Carbon Dioxide 28 mmol/L (22-32); Chloride 104 mmol/L (98-107); Estimated Glomerular Filt Rate > 60.0 mL/min (>60); Globulin 2.7 g/dL (1.7-4.1); Glucose 175 mg/dL (70-100); HEMOLYSIS < 15 (0-50); Lipase 276 U/L (23-300); Potassium 4.7 mmol/L (3.4-5.1); Sodium 137 mmol/L (137-145); Total Protein 6.9 g/dL (6.3-8.2)
[2021-11-28 00:16] LABS: Add Manual Diff / Slide Review NO; Basophils Absolute Auto 100 /uL (0-100); Basophils Percent Auto 0.9 % (0-2); Eosinophils Absolute Auto 100 /uL (0-450); Eosinophils Percent Auto 1.5 % (2-4); Hemoglobin 10.6 g/dL (13.5-17.5); Lymphocytes Absolute Auto 2000 /uL (1100-4500); Lymphocytes Percent Auto 27.5 % (25-40); Mean Corpuscular HGB Conc 30.2 % (30-36); Mean Corpuscular Hemoglobin 22.4 PG (26-34); Mean Corpuscular Volume 74.3 fL (80-100); Monocytes Absolute Auto 700 /uL (0-900); Monocytes Percent Auto 9.5 % (3-14); Neutrophils Absolute Auto 4300 /uL (1500-7000); Neutrophils Percent Auto 60.6 % (50-75); Platelet Count 324 X10^3/uL (150-400); Prothrombin Time 11.5 SECONDS (10.1-12.7); Red Blood Cell Count 4.71 X10^6/uL (4.5-5.9); Red Cell Distribution Width 18.3 % (11.6-14.8); White Blood Cell Count 7.1 X10^3/uL (4.5-11.0)
[2021-11-28 00:23] LABS: Cholesterol 94 mg/dL (140-199); HDL Cholesterol 29 mg/dL (40-60); LDL Cholesterol Calculated 33 mg/dL (<100); Magnesium 2.1 mg/dL (1.6-2.3); Triglycerides 158 mg/dL (35-150); Uric Acid 3.1 mg/dL (3.5-8.5)
[2021-11-28 00:26] LABS: C-Reactive Protein Quant < 0.5 mg/dL (<1.0)
[2021-11-28 00:27] LABS: Hemoglobin A1C% w Est Avg Glu 6.7 % (4.0-6.0)
[2021-11-28 00:36] LABS: NT-proBNP (BNP-Adult 18+) 68 pg/mL (<125); Troponin I < 0.012 ng/mL (0.01-0.034)
[2021-11-28 00:54] LABS: Thyroid Stimulating Hormone 2.81 uIU/mL (0.47-4.68)
[2021-11-28] MEDS: hydroCHLOROthiazide 25 MG TABLET PO ×2 (09:31→21:23)
[2021-11-28] MEDS: ASPIRIN 81 MG CHEW TAB PO (09:31)
[2021-11-28] MEDS: allopurinoL 300 MG TABLET PO (09:31)
[2021-11-28] MEDS: ATORVASTATIN 20 MG TABLET 80 MG PO (09:31)
[2021-11-28] MEDS: CLOPIDOGREL 75 MG TABLET PO (09:31)
[2021-11-28] MEDS: AMLODIPINE 5 MG TABLET 10 MG PO (09:31)
[2021-11-28] MEDS: ENOXAPARIN 40 MG/0.4 ML SYRINGE SUBCUT (09:32)
[2021-11-28] MEDS: INSULIN LISPRO 100 UNIT/ML 3ML VIAL SUBCUT (09:38)
--- NOTE | 2021-11-28 10:15 | OT.IP.EVAL ---
Past Medical History (Last Reviewed 11/28/21 @ 07:22 by Albino Hernandez DO) CVA (cerebral vascular accident) Gout Hemiparesis affecting left side as late effect of cerebrovascular accident (CVA) History of excision of mass History of excision of pilonidal cyst History of incision and drainage Hyperlipidemia Hypertension Kidney stones Obesity (BMI 30.0-34.9) Status post gastric bypass for obesity Trigeminal neuralgia Surgical History (Last Reviewed 11/28/21 @ 07:22 by Albino Hernandez DO) History of excision of mass History of excision of pilonidal cyst History of incision and drainage Status post gastric bypass for obesity Occupational Therapy Inpatient Evaluation/Re-Eval M1 PT/OT-IP Prior Functional Status Start: 11/28/21 08:50 Freq: NEEDED Status: Active Protocol: Document 11/28/21 09:44 [facility] (Rec: 11/28/21 12:01 [facility] [id number]) Medical Review Prior Functional Status Medical History Reviewed Yes Mobility and Gait Reports ambulated in the house without device, often without AFO independently. Uses forearm crutch and AFO for outdoor and community ambulation. Has adjustable bed, and bedside pole. Activities of Daily Living and IADL's Modified independent to min assist with ADL's Social History Household Members spouse Living Arrangements House Number of Floors (Floors) One Floor Number of Stairs To Enter/Railing? has ramp for front steps, 2 steps into bedroom which patient reports he is able to use typically without problem Home Environment Standard Height Toilet,Tub/ Shower Home Equipment Power Wheelchair/Scooter, Therapeutic Assistant,Grab Bars Near Toilet, Grab Bars In Shower Additional Social History Comment forearm crutch right Pt states has an adjustable bed. M2 OT-IP Current Condition Start: 11/28/21 11:47 Freq: Status: Active Protocol: Document 11/28/21 09:44 [facility] (Rec: 11/28/21 12:01 [facility] [id number]) Occupational Therapy Current Condition Current Condition Evaluation Date 11/28/21 Treatment Diagnosis Right side weakness which has resolved per pt Diagnosis Onset Date 11/27/21 M3 OT- IP Subjective and Pain Start: 11/28/21 11:47 Freq: Status: Active Protocol: Document 11/28/21 09:44 [facility] (Rec: 11/28/21 12:01 [facility] [id number]) OT- Subjective Occupational Therapy Visit Type Type Initial Evaluation Visit Start Time 09:44 Visit Stop Time 10:15 Total Visit Minutes 31 Occupational Therapy Visit Comments Patient Comments Pt agreed to get up for OT eval. Patient/Caregiver Goals To go home. OT Pain Assessment Pain When Pain Assessed At Rest Pain Present Pain Present Denied Pain M4 OT- IP ADL's Start: 11/28/21 11:47 Freq: Status: Active Protocol: Document 11/28/21 09:44 [facility] (Rec: 11/28/21 12:01 [facility] [id number]) OT [id number] Comments OT Self-Feeding Comments NOt at meal time. OT ADL-Grooming General Evaluation Grooming Ability Standby Assistance Areas Needing Assistance Retrieving/Set-up of Grooming Items Comments OT Grooming Comments Set-up assist OT ADL-Oral Care General Eval Oral Care Ability Independent OT ADL-Dressing General Eval Lower Body Dressing Ability Moderate Assistance Areas Needing Assistance Socks Comments OT Dressing Comments Pt needing assist for his socks but able to sidra/doff his Left AFO on his own with increased time. Pt states his assists him at home as needed. OT ADL-Toileting Comments OT Toileting Comments Not performed. OT ADL-Bathing Comments OT Bathing Comments Pt uses a shower stool at home . M5 OT- IP IADL's Start: 11/28/21 11:47 Freq: Status: Active Protocol: Document 11/28/21 09:44 [facility] (Rec: 11/28/21 12:01 [facility] [id number]) OT-Instrumental Activities of Daily Living Home Safety Awareness Awareness of Need for Assistance at Home Good Awareness Ability to Problem Solve Emergency Able to Problem Solve Situations Home Safety Comments Pt states his is able to assist with his needs as needed . M6 OT- IP Functional Cognition Start: 11/28/21 11:47 Freq: Status: Active Protocol: Document 11/28/21 09:44 [facility] (Rec: 11/28/21 12:01 [facility] [id number]) Cognitive Factors Limiting Selfcare Function Cognitive Ability Level of Alertness Alert Patient Orientation Name,Age,Birthday,Month,Date, Year,Day of Week,Place, Situation Attention Span Ability Capable of Focused Attention, Capable of Sustained Attention Ability to Follow Commands Able to Follow Multi-Step Commands Cognitive Comments Cognitive Assessment Comments Pt able to follow commands for ADL and mobility appropriately. OT- Vision and Hearing OT- Hearing Assessment OT- Hearing Assessment WFL M7 OT- IP Mobility and Balance Start: 11/28/21 11:47 Freq: Status: Active Protocol: Document 11/28/21 09:44 [facility] (Rec: 11/28/21 12:01 [facility] [id number]) OT- Bed Mobility Assessment Supine to Sit Supine to Sit Assist Minimal Assistance Sit to Supine Sit to Supine Assist Minimal Assistance OT-Transfer Assessment Sit to and From Stand Sit to and from Stand Contact Guard Assistance Transfers Transfer Ability Contact Guard Assistance, Minimal Assistance Technique Transfer Destination Bed,Chair Transfer Technique Stand Step Pivot Devices Transfer Assistive Devices Gait Belt,Straight Cane Comments Mobility Comments Pt needing RUSTAM to assist to get his leg into and out of the bed. Pt states has a grab bar in front of the bed he uses to assist to get into and out of the bed. CGA to stand with SPC and able to take step to the sink and back. Pt is a little unsteady and at times needing RUSTAM. OT- Balance Assessment Sitting Balance and Reactions Static Sitting Balance Ability Normal Dynamic Sitting Balance Ability Good Standing Balance and Reactions Static Standing Balance Ability Fair M8 OT- IP Objective Assessments Start: 11/28/21 11:47 Freq: Status: Active Protocol: Document 11/28/21 09:44 [facility] (Rec: 11/28/21 12:01 [facility] [id number]) OT Gross Range of Motion Upper Extremity Range of Motion Assessment Left Impaired ROM Impairments Left shoulder internally rotated. OT Strength Upper Extremity Strength Assessment Left Impaired Comments Strength Comments HX CVA for left arm and just able to elevate his shoulder and slightly abduct his left shoulder out. Pt not able to move his fingers at all. OT- Coordination Assessment Upper Extremity Finger to Nose Test Left UE Impaired OT-Muscle Tone Assessment Muscle Tone WNL No Comments Muscle Tone Comments Hypotonicity LUE M9 OT- IP Assessment and Plan Start: 11/28/21 11:47 Freq: Status: Active Protocol: Document 11/28/21 09:44 [facility] (Rec: 11/28/21 12:01 [facility] [id number]) OT Summary Assessment and Plan Potential Rehabilitation Potential Good Analytic Complexity at Evaluation Low Summary OT Impairments Range of Motion,Strength, Balance,Coordination, Functional Mobility,Grooming, Dressing,Toileting,Bathing, Activity Tolerance Progress Towards Goals Progressing Toward Goals Assessment Summary Pt here due to right sided weakness but now has resolved and pt feel mostly back to baseline except just a little more unsteady on his feet. However pt uses a forearm crutch at home versus SPC which was used here in the hospital. Pt looking to go home with his to assist. Goals Grooming Goal Independent Dressing Goal Independent Toileting Goal Independent Bathing Goal Independent Toilet Transfer Goal Independent Shower Transfer Goal Independent Days to Meet Goals 7 Frequency of Treatment Frequency Of Treatment Once a Day Treatment Plan OT Treatment Plan ADL Training,Functional Mobility,Patient/Family Education,Discharge Planning Discharge Recommendations OT Discharge Recommendations Home with Assistance Transportation Needs at Discharge Private Vehicle
--- NOTE | 2021-11-28 12:06 | PT.IIE ---
Medical History (Last Reviewed 11/28/21 @ 07:22 by Albino Hernandez DO) CVA (cerebral vascular accident) Gout Hemiparesis affecting left side as late effect of cerebrovascular accident (CVA) Hyperlipidemia Hypertension Kidney stones Obesity (BMI 30.0-34.9) Trigeminal neuralgia Physical Therapy Inpatient Evaluation/Re-Eval M1 PT/OT-IP Prior Functional Status Start: 11/28/21 08:50 Freq: NEEDED Status: Active Protocol: Document 11/28/21 09:44 [facility] (Rec: 11/28/21 12:01 [facility] [id number]) Medical Review Prior Functional Status Medical History Reviewed Yes Mobility and Gait Reports ambulated in the house without device, often without AFO independently. Uses forearm crutch and AFO for outdoor and community ambulation. Has adjustable bed, and bedside pole. Activities of Daily Living and IADL's Modified independent to min assist with ADL's Social History Household Members spouse Living Arrangements House Number of Floors (Floors) One Floor Number of Stairs To Enter/Railing? has ramp for front steps, 2 steps into bedroom which patient reports he is able to use typically without problem Home Environment Standard Height Toilet,Tub/ Shower Home Equipment Power Wheelchair/Scooter, School Bus Technician,Grab Bars Near Toilet, Grab Bars In Shower Additional Social History Comment forearm crutch right Pt states has an adjustable bed. M2 PT-IP Current Condition Start: 11/28/21 08:50 Freq: NEEDED Status: Active Protocol: Document 11/28/21 09:38 [facility] (Rec: 11/28/21 09:46 [facility] [id number]) Physical Therapy Current Condition Current Condition Evaluation Date 11/28/21 Treatment Diagnosis possible CVA Onset Date 11/27/21 M3 PT-IP Subjective Start: 11/28/21 08:50 Freq: NEEDED Status: Active Protocol: Document 11/28/21 09:38 [facility] (Rec: 11/28/21 09:46 [facility] [id number]) Subjective Physical Therapy Visit Type Type Initial Evaluation Visit Start Time 09:00 Visit Stop Time 09:40 Total Visit Minutes 40 Number of INFANTRY OPERATIONS SPECIALIST Visits 0 Physical Therapy Visit Comments Patient Comments Patient reports he feels better but not back to baseline. Doesn't have as much control of his left leg as prior to admission. Also c /o left sided visual field disturbance; last night was like poppies, now partially cloudy. Patient Goals return home Therapy Pain Assessment Pain Present Pain Present Denied Pain M4 PT-IP Mobility and Gait Start: 11/28/21 08:50 Freq: NEEDED Status: Active Protocol: Document 11/28/21 09:38 [facility] (Rec: 11/28/21 09:46 [facility] [id number]) PT-Bed Mobility Assessment Rolling Type of Rolling Roll to Right Level of Assist Independent Supine to Sit Supine to Sit Moderate Assistance,1 Person Assistance,Bedrails Scooting Scooting to Edge of Bed Moderate Assistance PT-Transfer Assessment Sit to and From Stand Sit to and from Stand Contact Guard Assistance Equipment Transfer Assistive Device Bed Rail Orthotic/Prosthetic Devices or Brace: No Transfer Ability Level of Assist Contact Guard Assistance,Use of Upper Extremities Comments Mobility Comments wanted to get to the bathroom, refused shoe or AFO stating he is able to walk without at home. Gait Assessment Gait Gait Assistance Required: Minimum Assistance Assistive Devices Orthotic/Prosthetic Devices or Brace: No Gait Deviations General Gait Pattern Decreased Stride Length, Decreased Feet Clearance,Wide Based Gait Factors Limiting Gait Function Factors Limiting Gait Function Decreased Strength Comments Gait Comments handheld assist or patient holding door jam, grab bars to ambulate to bathroom, then back to chair. Slow, steady, no evidence for imbalance. M5 PT-IP Objective Assessments Start: 11/28/21 08:50 Freq: NEEDED Status: Active Protocol: Document 11/28/21 09:38 [facility] (Rec: 11/28/21 12:06 [facility] [id number]) Gross Range of Motion Upper Extremity ROM Impairments right UE WNL, left UE mod limited passively, unable to move actively Lower Extremity ROM Impairments right LE WNL, left LE min AROM , mod limited passively Strength Upper Extremity Strength Assessment Left Impaired Shoulder 1 Elbow 0 Wrist 0 Hand 0 Lower Extremity Strength Assessment Left Impaired Hip 1 Knee 2- Ankle 0 Comments Strength Comments ROM and strength assessments done grossly as patient had to go the bathroom. Coordination Assessment Assessment Coordination Comments WNL right, unable to perform tests on left Sensation Assessment Sensation Gross Sensation Left UE Impaired,Left LE Impaired Light Touch Impaired Proprioception (Position) Impaired Sensation Description Paresthesia,Numbness Muscle Tone Muscle Tone WNL No Other Assessments Other Other Assessments hypotonic left UE and LE M7 PT-IP Assessment and Plan Start: 11/28/21 08:50 Freq: NEEDED Status: Active Protocol: Document 11/28/21 09:38 [facility] (Rec: 11/28/21 12:06 [facility] [id number]) PT Summary Assessment and Plan Potential Rehabilitation Potential Good Status of Condition at Evaluation Evolving Summary Impairments Strength,Bed Mobility, Transfers,Gait Assessment Summary Patient presents to PT due to increase in weakness, reportedly on right side initially which didn't allow him to get off his couch at home due to left sided weakness from 3 prior CVA's. At this time patient appears to have regained his strength in his right UE and LE but is reporting not back to baseline strength left LE and is also c/o visual field disturbance on the left since last night; nursing informed of the visual field deficit as he stated he hadn't told anyone. Having an MRI this afternoon. Will benefit from PT to improve his functional mobility ability and safety. He lives with his in a one level house with a ramp to enter. Safety equipment in place. Patient desire is to be discharged home. Goals Bed Mobility Goal Independent Transfer Goal Independent Gait Goal Independent,Crutches Gait Distance 100 Days to Meet Goals 3 Frequency of Treatment Frequency Of Treatment Twice a Day Treatment Plan Physical Therapy Treatment Plan Bed Mobility Training,Transfer Training,Gait Training, Therapeutic Exercise,Balance Retraining,Discharge Planning, Neuromuscular Re-ed Other Recommendations and Next Treatment gait training with forearm Focus crutch right, AFO Recommendations To Nursing Amount of Assist Needed 1 Person Assist Discharge Recommendations PT Discharge Recommendations Home with Assistance,Home Health,Acute Rehab Transportation Needs at Discharge Private Vehicle
--- NOTE | 2021-11-28 12:08 | ST.IPIE ---
Visit Care Team Role Provider Type Blessing Lowe DO Emergency Provider Physician Referring Provider Specialty: Emergency Medicine Address: [address] [place] [address], [id number] Email: [email or web address], [email or web address] Admit Provider Physician Attending Provider Specialty: Hospitalist Internal Medicine Address: [address] [place] [address], [id number] Email: Past Medical History (Last Reviewed 11/28/21 @ 07:22 by Albino Hernandez DO) CVA (cerebral vascular accident) (Medical) Gout (Medical) Hemiparesis affecting left side as late effect of cerebrovascular accident (CVA) (Medical) History of excision of mass (Medical) History of excision of pilonidal cyst (Medical) History of incision and drainage (Medical) Hyperlipidemia (Medical) Hypertension (Medical) Kidney stones (Medical) Obesity (BMI 30.0-34.9) (Medical) Status post gastric bypass for obesity (Medical) Trigeminal neuralgia (Medical) ST IP Initial Evaluation Report PIPE BOWLS PAINT TRIMMER Motor Speech Evaluation Start: 11/28/21 11:46 Freq: Status: Active Protocol: Document 11/28/21 11:47 [facility] (Rec: 11/28/21 12:08 [facility] [id number]) Motor Speech Evaluation Session Time Visit Start Time 11:05 Visit Stop Time 11:30 Total Visit Minutes 25 Setting Setting Acute Care Patient History Source: [employer]). Patient History Tera Castanead is a 55-year- old male with history significant for hypertension, CVA x 3 with residual left- sided deficit, NIDDM 2, hyperlipidemia, gout, kidney stones and trigeminal neuralgia who pesented to the ED for concerns for right- sided deficits/weakness. The patient was consulted and evaluated by hospitalist Dr. French and found to be appropriate for discharge home with precautions. Patient was then brought back in by his who had continued concerns of worsening right- sided weakness. Patient is being admitted for further evaluation to rule out stroke with an MRI tomorrow. Pt has residual effects from prior CVA demonstrated by weakness and reduced ROM and strength of oral structures on left side. Referral Referring Physician Dr. Hernandez Mental Status Mental Status Alert,Responsive,Cooperative Subjective Observations Subjective Pt was seated in his bedjoking with the staff. Introduced self and purpose. Pt reported that he has no difficulty understanding or speaking. He did report that he thought his speech sounded slushy. Oral Motor Lips Function WFL Observation at rest slight droop on left side Pucker left side weak Alternating pucker/retraction slow with decreased ROM on left side Tongue Function WFL Observations at rest tongue symmetrical at rest Protrusion deviates to left side Lateralization not coordinated movement movement, especially left side . Jaw Function WFL Opening WNL Lateralization WNL Protrusion WNL Retraction WNL Soft Palate Function WFL Symmetry WNL Sustained Elevation WNL Alternating elevation/relaxation WNL Respiration/Phonation Phonation Quality WNL Function WNL Loudness WNL Conversation Quality WNL Duration WNL Function WNL Loudness WNL Diadochokinetic Rates P^ Quality WFL T^ Quality WFL K^ Quality WFL P^T^K^ Quality Mild Impairment Speech Intelligibility Awareness/Strategy Use Description Type of awareness/use Uses consistently Findings Details Motor Speech Function WFL Assessment Details Assessment Pt presented with speech intelligibility at 100%. OME indicated deviation and weakness of the tongue upon protrusion left side of mouth was observed to be slightly weaker (only for cheek puff task/pucker) without air leakage. This was a residual effect of prior CVAs. Right side was WNL for other structures. No dysarthria noted, no Hypernasality, no facial droop. Pt's speech intelligibility was observed to be 100%. Recommendations Treatment Recommended No Patient/Family Education Education Described results of evaluation
--- NOTE | 2021-11-28 14:54 | PT.IPTN ---
Physical Therapy Treatment Note M2 PT-IP Current Condition Start: 11/28/21 08:50 Freq: NEEDED Status: Active Protocol: Document 11/28/21 09:38 [facility] (Rec: 11/28/21 09:46 [facility] [id number]) Physical Therapy Current Condition Current Condition Evaluation Date 11/28/21 Treatment Diagnosis possible CVA Onset Date 11/27/21 M3 PT-IP Subjective Start: 11/28/21 08:50 Freq: NEEDED Status: Active Protocol: Document 11/28/21 14:30 [facility] (Rec: 11/28/21 15:20 [facility] [id number]) Subjective Physical Therapy Visit Type Type Treatment Note Visit Start Time 14:30 Visit Stop Time 14:54 Total Visit Minutes 24 Number of SECURITY ATTENDANT Visits 1 Physical Therapy Visit Comments Patient Comments Pt reports feeling weaker than baseline. Patient Goals return home M4 PT-IP Mobility and Gait Start: 11/28/21 08:50 Freq: NEEDED Status: Active Protocol: Document 11/28/21 14:30 [facility] (Rec: 11/28/21 15:20 [facility] [id number]) PT-Bed Mobility Assessment Rolling Type of Rolling Roll to Right Level of Assist Independent Supine to Sit Supine to Sit Maximum Assistance,1 Person Assistance,Bedrails Sit to Supine Sit to Supine Standby Assistance PT-Transfer Assessment Sit to and From Stand Sit to and from Stand Minimal Assistance,1 Person Assistance,Use of Upper Extremities Equipment Transfer Assistive Device Gait Belt,Straight Cane Orthotic/Prosthetic Devices or Brace: Yes Transfers Transfer Destination Bed Transfer Technique Pt ambulated w/ SPC Transfer Ability Level of Assist Minimal Assistance,1 Person Assistance,Use of Upper Extremities Comments Mobility Comments Pt in bed requiring Max A for sup<>sit and Max A to remain upright initially and holding onto this SECURITY ATTENDANT and then bedrail but was soon able to regain seated balance. Pt Min A for sit<>stand w/ SPC and then performed stand step pivot to chair and was able to apply is AFO independently. Pt Min A for sit<>stand and then ambulated ~40 ft around room w / SPC and CGA/Min A. Pt w/ unsteady gait and WBOS w/ quick approach to fatigue. Pt returned to bed SBA using RLE to lift LLE into bed. Pt left in bed w/ alarm on and all needs in reach. Gait Assessment Gait Gait Assistance Required: Contact Guard Assist,Minimum Assistance,1 Person Assist Distance (Feet) 40 Assistive Devices Orthotic/Prosthetic Devices or Brace: Yes Gait Deviations General Gait Pattern Decreased Stride Length, Decreased Feet Clearance,Wide Based Gait Factors Limiting Gait Function Factors Limiting Gait Function Decreased Strength Comments Gait Comments Pt w/ AFO on LLE ambulated 40 ft w/ SPC. M5 PT-IP Objective Assessments Start: 11/28/21 08:50 Freq: NEEDED Status: Active Protocol: Document 11/28/21 09:38 [facility] (Rec: 11/28/21 12:06 [facility] [id number]) Gross Range of Motion Upper Extremity ROM Impairments right UE WNL, left UE mod limited passively, unable to move actively Lower Extremity ROM Impairments right LE WNL, left LE min AROM , mod limited passively Strength Upper Extremity Strength Assessment Left Impaired Shoulder 1 Elbow 0 Wrist 0 Hand 0 Lower Extremity Strength Assessment Left Impaired Hip 1 Knee 2- Ankle 0 Comments Strength Comments ROM and strength assessments done grossly as patient had to go the bathroom. Coordination Assessment Assessment Coordination Comments WNL right, unable to perform tests on left Sensation Assessment Sensation Gross Sensation Left UE Impaired,Left LE Impaired Light Touch Impaired Proprioception (Position) Impaired Sensation Description Paresthesia,Numbness Muscle Tone Muscle Tone WNL No Other Assessments Other Other Assessments hypotonic left UE and LE M6 PT-IP Treatment Start: 11/28/21 08:50 Freq: NEEDED Status: Active Protocol: Document 11/28/21 15:20 [facility] (Rec: 11/28/21 15:20 [facility] [id number]) Physical Therapy Treatment Education Education Provided Safety M7 PT-IP Assessment and Plan Start: 11/28/21 08:50 Freq: NEEDED Status: Active Protocol: Document 11/28/21 14:30 [facility] (Rec: 11/28/21 15:20 [facility] [id number]) PT Summary Assessment and Plan Potential Rehabilitation Potential Good Status of Condition at Evaluation Evolving Summary Impairments Strength,Bed Mobility, Transfers,Gait Assessment Summary Pt continues to be limited by poor balance and increased weakness compared to baseline. Quick approach to fatigue following 40 ft ambulation w/ FWW and required Max A for sup <>sit and initially to maintain seated balance. Pt able to sidra own AFO. Continues to report visual disturbances in L field of vision stating he is seeing mages of things he has seen sometime in his pat, i.e. poppy davey, curtain patterns. He will benefit from outpatient rehab to assess deficits and improve balance and gait. Goals Bed Mobility Goal Independent Transfer Goal Independent Gait Goal Independent,Crutches Gait Distance 100 Days to Meet Goals 3 Frequency of Treatment Frequency Of Treatment Twice a Day Treatment Plan Physical Therapy Treatment Plan Bed Mobility Training,Transfer Training,Gait Training, Therapeutic Exercise,Balance Retraining,Discharge Planning, Neuromuscular Re-ed Other Recommendations and Next Treatment gait training with forearm Focus crutch right, AFO Recommendations To Nursing Amount of Assist Needed 1 Person Assist Discharge Recommendations PT Discharge Recommendations Home with Assistance,Home Health,Acute Rehab Transportation Needs at Discharge Private Vehicle
--- NOTE | 2021-11-28 15:35 | P.PN_ITS ---
Subjective Subjective Date Patient Seen: 11/28/21 Time Patient Seen: 15:35 Interval history: Complained of slight change to his left visual rhoades. Normally cant see much but the visual field became even more blurry compared to prior. MRI showed old infarcts on the L and a new subacute infarct on the R possibly correlating with visual field change. He is also someone more confused per the and isn't quite making as much sense today. Exam Vital Signs (past 8 hours): - 11/28/21 08:00 11/28/21 08:37 11/28/21 09:00 Temperature 96.8 F L Pulse Rate 56 L Respiratory Rate 17 Blood Pressure 116/67 Pulse Oximetry 97 97 97 11/28/21 13:00 11/28/21 14:00 Temperature 96.8 F L Pulse Rate 55 L Respiratory Rate 16 Blood Pressure 106/53 L Pulse Oximetry 98 98 Oxygen Delivery Method Room Air Oxygen Flow Rate 0 Narrative Exam Narrative: General:? Middle-aged gentleman sitting in bed and in no acute distress, well- developed, well-nourished HEENT: Normocephalic, atraumatic. External ears without defect. Pupils equal, round, and reactive to light.? Anicteric sclerae, moist conjunctivae, and no lid lag.? Oropharynx free of erythema and cobble stoning with moist mucosa. Neck: Supple with full range of motion. No JVD Cardiovascular: Regular rate and rhythm without murmurs, rubs, or gallops appreciated. Pulmonary: Clear to auscultation bilaterally without crackles, wheezes, or rhonchi.? Normal respiratory effort with no use of accessory muscles. Abdomen:? Soft, obese, bowel sounds present, nontender, nondistended. No hepatosplenomegaly or masses appreciated. Extremities: No clubbing, cyanosis, or edema Neurological: Cranial nerves grossly intact.? Chronic left-sided hemiparesis with slight facial droop due to previous CVA. R side without weakness or numbness currently. No ataxia on R. He seems very mildly confused but is alert and oriented x3, mildly slower compared to yesterday's exam in the ER Psychiatric: Normal mood and affect. Alert and oriented to person, place, and time. Objective Labs Result Diagrams: 11/27/21 23:50 11/27/21 23:50 Labs: Laboratory Results - last 24 hr 11/27/21 11/27/21 11/27/21 23:50 23:50 23:50 WBC RBC Hgb Hct MCV MCH MCHC RDW Plt Count Neut % (Auto) Lymph % (Auto) Drew % (Auto) Eos % (Auto) Baso % (Auto) Neut # (Auto) Lymph # (Auto) Drew # (Auto) Eos # (Auto) Baso # (Auto) PT INR Sodium 137 Potassium 4.7 Chloride 104 Carbon Dioxide 28 BUN 18 Creatinine 1.12 Estimated GFR > 60.0 BUN/Creatinine Ratio 16.1 Glucose 175 H Hemoglobin A1c Uric Acid Calcium 9.0 Magnesium Total Bilirubin 0.4 AST 27 ALT 32 Alkaline Phosphatase 91 Troponin I C-Reactive Protein < 0.5 NT-Pro-B Natriuret Pep Total Protein 6.9 Albumin 4.2 Globulin 2.7 Albumin/Globulin Ratio 1.6 Triglycerides Cholesterol LDL Cholesterol, Calc HDL Cholesterol Amylase 144 H Lipase 276 D TSH 11/27/21 11/27/21 11/27/21 23:50 23:50 23:50 WBC 7.1 RBC 4.71 Hgb 10.6 L Hct 35.0 L MCV 74.3 L MCH 22.4 L MCHC 30.2 RDW 18.3 H Plt Count 324 Neut % (Auto) 60.6 Lymph % (Auto) 27.5 Drew % (Auto) 9.5 Eos % (Auto) 1.5 L Baso % (Auto) 0.9 Neut # (Auto) 4300 Lymph # (Auto) 2000 Drew # (Auto) 700 Eos # (Auto) 100 Baso # (Auto) 100 PT 11.5 INR 1.0 Sodium Potassium Chloride Carbon Dioxide BUN Creatinine Estimated GFR BUN/Creatinine Ratio Glucose Hemoglobin A1c Uric Acid 3.1 L Calcium Magnesium Total Bilirubin AST ALT Alkaline Phosphatase Troponin I C-Reactive Protein NT-Pro-B Natriuret Pep Total Protein Albumin Globulin Albumin/Globulin Ratio Triglycerides Cholesterol LDL Cholesterol, Calc HDL Cholesterol Amylase Lipase TSH 11/27/21 11/27/21 11/27/21 23:50 23:50 23:50 WBC RBC Hgb Hct MCV MCH MCHC RDW Plt Count Neut % (Auto) Lymph % (Auto) Drew % (Auto) Eos % (Auto) Baso % (Auto) Neut # (Auto) Lymph # (Auto) Drew # (Auto) Eos # (Auto) Baso # (Auto) PT INR Sodium Potassium Chloride Carbon Dioxide BUN Creatinine Estimated GFR BUN/Creatinine Ratio Glucose Hemoglobin A1c 6.7 H Uric Acid Calcium Magnesium 2.1 Total Bilirubin AST ALT Alkaline Phosphatase Troponin I < 0.012 C-Reactive Protein NT-Pro-B Natriuret Pep 68 Total Protein Albumin Globulin Albumin/Globulin Ratio Triglycerides 158 H Cholesterol 94 L LDL Cholesterol, Calc 33 HDL Cholesterol 29 L Amylase Lipase TSH 2.81 [facility] Medical History CVA (cerebral vascular accident) Gout Hemiparesis affecting left side as late effect of cerebrovascular accident (CVA) Hyperlipidemia Hypertension Kidney stones Obesity (BMI 30.0-34.9) Trigeminal neuralgia Surgical History History of excision of mass History of excision of pilonidal cyst History of incision and drainage Status post gastric bypass for obesity Family History Father Stroke Dementia Mother Cancer Social History household members: spouse Smoking Status: Never smoker Assessment & Plan Assessment & Plan narrative: Tera Castaneda is a 55-year-old male with history significant for hypertension, CVA x 3 with residual left-sided deficit, NIDDM 2,? hyperlipidemia, gout, kidney stones and trigeminal neuralgia who pesented to the ED for concerns for right- sided deficits/weakness, found on MRI to have a subacute infarct which does not correlate with weakness but patient endorsed new visual field defects which do. 1. CVA, acute, transient, resolved, present on admission -patient is still not to his prior level of functioning on the right, developed new visual changes today with corresponding findings on MRI with a subacute infarct noted. - continue asa and plavix, statin - continue PT/OT 2. NIDDM 2, acute on chronic, with presenting hyperglycemia, present on admission -patient admitted under diabetic protocol -A1c ordered, glucose checks a.c. HS -continue metformin, Jardiance -low-dose sliding scale as needed 3. Essential hypertension, chronic, present on admission -Patient is hypotensive on admission BP's 107/67, 104/25, 108/55, 101/59 -continue amlodipine, HCTZ, held losartan, aldactone. -orthostatics Q shift while awake -concerned that patient may be having hypotension that is contributing to weakness. 4. History of CVA with left hemiparesis, chronic, present on admission. -patient typically mobilizes electric wheelchair but uses his right hand to manage controls on the left arm rest. -PT and OT to consult, evaluate and treat. 5.? Gout, hyperuricemia, chronic, present on admission, active -patient on hydrochlorothiazide increasing risk factor for hyperuricemia and associated pro inflammatory effect. With history of gout and takes colchicine during flares. -continue allopurinol 5. Hyperlipidemia, chronic, present on admission -Continue atorvastatin -will obtain a lipid panel. 6. Obesity, as evidence by BMI of 31.6, acute on chronic, present on admission -patient is status post gastric bypass. -request dietitian consult.? Code status: FULL CODE Surrogate decision maker: /spouse COVID PCR:Negative COVID vaccination: Unknown DVT/VTE prophylaxis:? Lovenox and SCDs Disposition:? Possibly discharge home tomorrow if neurological symptoms are stable, symptoms improve. Time Spent With Patient Critical Care time: I spent a total of [] minutes of critical care time on this patient's care today; this time is exclusive of procedural time.
[2021-11-28] MEDS: PANTOPRAZOLE DR 20 MG TABLET PO (21:23)
[2021-11-29] VITALS (8 sets, daily range): BP systolic 110–140; BP diastolic 56–78; PULSE 57–74; RESP 14–18; TEMP 36.1–36.4; O2SAT 95–99
[2021-11-29] MEDS: CLOPIDOGREL 75 MG TABLET PO (09:14)
[2021-11-29] MEDS: ATORVASTATIN 20 MG TABLET 80 MG PO (09:14)
[2021-11-29] MEDS: allopurinoL 300 MG TABLET PO (09:14)
[2021-11-29] MEDS: AMLODIPINE 5 MG TABLET 10 MG PO (09:14)
[2021-11-29] MEDS: ENOXAPARIN 40 MG/0.4 ML SYRINGE SUBCUT (09:15)
[2021-11-29] MEDS: hydroCHLOROthiazide 25 MG TABLET PO (09:15)
[2021-11-29] MEDS: ASPIRIN EC 81 MG TABLET PO (09:15)
[2021-11-29] MEDS: PANTOPRAZOLE DR 20 MG TABLET PO (09:15)
[2021-11-29] MEDS: INSULIN LISPRO 100 UNIT/ML 3ML VIAL SUBCUT ×2 (09:20→12:19)
--- NOTE | 2021-11-29 10:21 | OT.IP.TRT ---
Occupational Therapy Treatment Note M2 OT-IP Current Condition Start: 11/28/21 11:47 Freq: Status: Active Protocol: Document 11/28/21 09:44 [facility] (Rec: 11/28/21 12:01 [facility] [id number]) Occupational Therapy Current Condition Current Condition Evaluation Date 11/28/21 Treatment Diagnosis Right side weakness which has resolved Diagnosis Onset Date 11/27/21 M3 OT- IP Subjective and Pain Start: 11/28/21 11:47 Freq: Status: Active Protocol: Document 11/29/21 09:48 [facility] (Rec: 11/29/21 13:00 [facility] [id number]) OT- Subjective Occupational Therapy Visit Type Type Treatment Note Visit Start Time 09:48 Visit Stop Time 10:21 Total Visit Minutes 33 Occupational Therapy Visit Comments Patient Comments Pt agreed to do cognitive assessment and visual assessment. Patient/Caregiver Goals TO go home. OT Pain Assessment Pain When Pain Assessed At Rest Pain Present Pain Present Pain Reported M5 OT- IP IADL's Start: 11/28/21 11:47 Freq: Status: Active Protocol: Document 11/28/21 09:44 [facility] (Rec: 11/28/21 12:01 [facility] [id number]) OT-Instrumental Activities of Daily Living Home Safety Awareness Awareness of Need for Assistance at Home Good Awareness Ability to Problem Solve Emergency Able to Problem Solve Situations Home Safety Comments Pt states his is able to asisstwith his needs as needed . M6 OT- IP Functional Cognition Start: 11/28/21 11:47 Freq: Status: Active Protocol: Document 11/29/21 09:48 [facility] (Rec: 11/29/21 13:00 [facility] [id number]) Cognitive Factors Limiting Selfcare Function Cognitive Ability Level of Alertness Alert Patient Orientation Name,Age,Birthday,Month,Date, Year,Day of Week,Place, Situation Attention Span Ability Capable of Focused Attention, Capable of Sustained Attention Ability to Follow Commands Able to Follow Multi-Step Commands Memory Description Short Term Impaired,Working Impaired Problem Solving Ability Needs Assist to Identify Solutions Executive Function Ability Unable to Remember Details Cognitive Tests SLUMS Pt scored 18/30 which implies dementia, however pt states has had short term memory issues since his prior CVA and able to manages by putting reminders in his phone. Pt not aware of the day, able to name 13 animals in one minute and not aware saying the same ones as times, not able to recall any of the 5 objects after time passed, not able to state 3 digit number backwards, and able to answer 2/4 questions right after paragraph read. Cognitive Comments Cognitive Assessment Comments Pt scored 197 seconds on Savona Maing Pat B, pt not having his glasses here but states able to see well enough. Pt states has history of left hemianopsia and and states had prism glasses in the past but did not work well for him as states does better by turning his head especially for driving. Pt score implies severe deficits for visual attention, speed of processing , mental flexibility, executive functioning, and task switching. Pt agreed that he will not be driving at this time. OT- Vision and Hearing OT- Vision Assessment Visual Perez Impaired Vision Assessment Comments Left hemianopsia M8 OT- IP Objective Assessments Start: 11/28/21 11:47 Freq: Status: Active Protocol: Document 11/28/21 09:44 [facility] (Rec: 11/28/21 12:01 [facility] [id number]) OT Gross Range of Motion Upper Extremity Range of Motion Assessment Left Impaired ROM Impairments Left shoulder internally rotated. OT Strength Upper Extremity Strength Assessment Left Impaired Comments Strength Comments HX CVA for left arm and just able to elevate his shoulder and slightly abduct his left shoulder out. Pt not able to move his finger s at all. OT- Coordination Assessment Upper Extremity Finger to Nose Test Left UE Impaired OT-Muscle Tone Assessment Muscle Tone WNL No Comments Muscle Tone Comments Hypotonicity LUE M9 OT- IP Assessment and Plan Start: 11/28/21 11:47 Freq: Status: Active Protocol: Document 11/29/21 09:48 [facility] (Rec: 11/29/21 13:00 [facility] [id number]) OT Summary Assessment and Plan Potential Rehabilitation Potential Good Analytic Complexity at Evaluation Low Summary OT Impairments Range of Motion,Strength, Balance,Coordination, Functional Mobility,Grooming, Dressing,Toileting,Bathing, Activity Tolerance Progress Towards Goals Progressing Toward Goals Assessment Summary Pt states feel mostly back to baseline except for some unsteadiness on his feet and not open to going to acute rehab/skilled rehab and wanting to go home and have outpt PT. Pt having more difficulty with cognitive needs and would benefit from OT/SUPERVISOR HOME RESTORATION SERVICE however pt not open and states that he will just work on it on his own. Goals Grooming Goal Independent Dressing Goal Independent Toileting Goal Independent Bathing Goal Independent Toilet Transfer Goal Independent Shower Transfer Goal Independent Days to Meet Goals 5 Frequency of Treatment Frequency Of Treatment Once a Day Treatment Plan OT Treatment Plan ADL Training,Functional Cognition Training,Functional Mobility,Patient/Family Education,Discharge Planning Discharge Recommendations OT Discharge Recommendations Home with Assistance,SNF Rehab ,Acute Rehab,Outpatient PT Transportation Needs at Discharge Private Vehicle
--- NOTE | 2021-11-29 10:22 | PM.DS.1 ---
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 hyperlipidemia gout, kidney stones and trigeminal neuralgia who pesented to the ED for concerns of a potential stroke.? Yesterday he had a headache.? He went to bed last night and slept well.? Woke up this morning continue to have slight headache, able to walk around.?When he tried to get up from his chair noticed that his right side was weak and he could stand.? This is not baseline for him.? Patient's also stated that she could not lift him up with his right hand because of his weakness.?The patient arrived greater than 4.5 hours after the onset of his symptoms.?Hx of CVA left sided deficits: At baseline he is able to dress himself and feed himself and get around the house hand ambulate.?Patient is non compliant of his medicaitons to include aspirin, lipitor, and Plavix. By the time 1410: ED Dr. Roblero had evaluated him, symptoms had greatly improved. 11/27/[address] Hernandez Hospitalist Consulted in ED and determined the patient could return home with precautions. Per Dr. Hernandez:TIA - safe for discharge home. Discussed risks and benefits of observation for TIA vs discharge home with patient and spouse. There was notable disagreement between them but patient elected for discharge home. Recommend asa 81 mg, plavix 75 mg x21 days with loading dose here (300 mg). Increase statin to 80 mg nightly, MRI at this time would not currently manager change, return precautions provided including worsening stroke symptoms, Prompt PCP follow up ideally before the end of the week. Patient returned to the ED at approximately 2100 at the urging of his . The reported to Dr. Lowe that she endorsed continued worsening right sided weakness, that worsened ability to transfer the patient, difficulty standing, and right sided facial droop.? Dr. Lowe did not appreciate any right sided weakness, nor change from previously documented physical assessment. She did note however that the patient did require assistance getting out of the car to come into the ED. The patients was insistent that her be admitted, due to right sided weakness.? Upon admit exam the patient denies chest pain, shortness of breath, abdominal pain, nausea, vomiting, diarrhea, chills, fever, headache, changes in vision, cough, URI symptoms, urinary symptoms, hematemesis, hematuria, melena, new or different weakness numbness or tingling, recent head injury, loss of consciousness, illness injury or trauma. ?Upon admit exam the patient is a very poor historian, and confused. He was alert and orientated but in regards to HPI, and ROS he constantly changed his story.? The patient initially told me that he is taking all his medications and is compliant, he then told me he has been out of his medications for a week, then he was unable to tell me what his medications were.? The patient initially complained of left-sided weakness, when I advised him that that was residual from a previous CVA. He then advised that he was asymptomatic, and was back to baseline.? Then later on in the conversation he went on to say that he was having right-sided weakness in his lower extremities but not in his brain.? Suffice to say the patient appeared very confused and a poor historian. Patient's vitals upon admit temp 96.5?, BP 107/67, HR 59, R 14, O2 saturation 97% on room air.? I reviewed the patient's blood work and imaging from prior in the day.? HGB 10.8, HCT 35.3.? Patient's chemistry panels were grossly normal with the exception of glucose of 153.? Patient was noted to have an ABCD 2 score: 3, urinalysis was negative, troponin was within normal limits, lipase was 2781, EtOH<10.? Patient's head CT was negative for any intracranial processes.? Patient's head neck CTA was also negative.? Patient's EKG demonstrated a sinus rhythm with a rate of [address] or T-wave changes.? Patient's initial NIH score:6 upon admit to ED. cervical eyes unable to obtain accurate NIH score due to patient's chronic left-sided weakness.? Patient admitted for neurological deficit (right-sided weakness, transient, resolved) TIA versus CVA, in the setting of history of strokes x3, and medication noncompliance. Discharge Providers Provider Date of admission: 11/27/21 22:53 Discharge Date: 11/29/21 Consults: 11/27/21 22:44 Consult to Discharge Planning Routine Comment: Consult to Occupational Therapy Evaluate & Treat Comment: Physician Instructions: Evaluate and treat Consult to Physical Therapy Evaluate & Treat Comment: Physician Instructions: Evaluate and Treat Consult to Speech Therapy Evaluate & Treat Comment: Physician Instructions: Evaluate and treat 11/27/21 22:51 Consult to Dietitian, Adult Routine Comment: Reason For Exam: BMI 31.6 Discharge provider: Albino Hernandez DO Summary Hospital Course Discharge Diagnosis: 1. CVA,? acute, transient, resolved, present on admission 2. NIDDM 2, acute on chronic, with presenting hyperglycemia, present on admission 3. Essential hypertension, chronic, present on admission 4. History of CVA with left hemiparesis, chronic, present on admission. 5.? Gout, hyperuricemia, chronic, present on admission, active 5. Hyperlipidemia, chronic, present on admission 6. Obesity, as evidence by BMI of 31.6, acute on chronic, present on admission Hospital Course: Tera Castaneda is a 55-year-old male with history significant for hypertension, CVA x 3 with residual left-sided deficit, NIDDM 2,? hyperlipidemia, gout, kidney stones and trigeminal neuralgia who returned to the ED for concerns for right-sided deficits/weakness, found on MRI to have a subacute infarct which does not correlate with weakness but patient endorsed new visual field defects which do. His MRI also did reveal a chronic left-sided infarct which might explain his right-sided symptoms, however this was noted to be old and would not fit with the current time frame. He, nonetheless, was started on aspirin and Plavix for 21 days and was recommended to continue high intensity statin therapy with atorvastatin 80 mg. Another possibility for his right-sided symptoms could be symptomatic hypotension. His neurological symptoms continue to improve over the course of admission, and some of his home antihypertensives were held. He had presented on multiple antihypertensives, and these were narrowed significantly at the time of discharge and the patient remained normotensive. I recommend that he continue to monitor his blood pressures at home, and follow-up with primary care provider for further titration. No changes are recommended to his diabetes medications as his A1c was noted to be below 7%. Time Spent with Patient Time spent: Less than 30 minutes Exam Vital Signs (past 8 hours): - 11/29/21 04:00 11/29/21 06:00 11/29/21 08:00 Temperature 97.0 F L 97.5 F L Pulse Rate 57 L 64 Respiratory Rate 17 18 Blood Pressure 110/62 122/56 L Pulse Oximetry 98 98 98 11/29/21 10:10 Temperature Pulse Rate Respiratory Rate Blood Pressure Pulse Oximetry 98 Oxygen Delivery Method Room Air Oxygen Flow Rate 0 Narrative Exam Narrative: General:? Middle-aged gentleman sitting in bed and in no acute distress, well-developed, well-nourished HEENT: Normocephalic, atraumatic. External ears without defect. Pupils equal, round, and reactive to light.? Anicteric sclerae, moist conjunctivae, and no lid lag.? Oropharynx free of erythema and cobble stoning with moist mucosa. Neck: Supple with full range of motion. No JVD Cardiovascular: Regular rate and rhythm without murmurs, rubs, or gallops appreciated. Pulmonary: Clear to auscultation bilaterally without crackles, wheezes, or rhonchi.? Normal respiratory effort with no use of accessory muscles. Abdomen:? Soft, obese, bowel sounds present, nontender, nondistended. No hepatosplenomegaly or masses appreciated. Extremities: No clubbing, cyanosis, or edema Neurological: Cranial nerves grossly intact.? Chronic left-sided hemiparesis with slight facial droop due to previous CVA. R side without weakness or numbness currently. No ataxia on R. alert and oriented x3 without lethargy noted yesterday. Psychiatric: Normal mood and affect. Alert and oriented to person, place, and time. Objective Labs Result Diagrams: 11/27/21 23:50 11/27/21 23:50 [facility] Medical History CVA (cerebral vascular accident) Gout Hemiparesis affecting left side as late effect of cerebrovascular accident (CVA) Hyperlipidemia Hypertension Kidney stones Obesity (BMI 30.0-34.9) Trigeminal neuralgia Surgical History History of excision of mass History of excision of pilonidal cyst History of incision and drainage Status post gastric bypass for obesity Family History Father Stroke Dementia Mother Cancer Social History household members: spouse Smoking Status: Never smoker Discharge Plan Discharge Plan Patient Disposition: Home Provider Discharge Comment: You were admitted to the hospital with R sided weakness. A new stroke was found on your MRI, this area of the brain however does not correlate with the right sided symptoms you were having but you did have an old stroke that was noted on the left. Please continue treatment for stroke reduction that was prescribed for you in the ER. The other possible cause of your R weakness would be low BP. Your BP is normal here on two medications and a number of your BP medications I recommend you stop. Please continue to track your BP at home with a log twice a day, and follow up with your primary care provider should any adjustments be needed. Please follow up with your outpatient provider as well for referral to physical therapy. Discharge orders & Medications Prescriptions: New pantoprazole 20 mg Tablet,Delayed Release (Dr/Ec) 20 mg PO BID 30 Days Qty: 60 0RF hydrochlorothiazide 25 mg Tablet 25 mg PO BID 30 Days Qty: 60 0RF ibuprofen 600 mg Tablet 600 mg PO Q6H PRN (Reason: fever or pain) 14 Days Qty: 7 0RF Continued aspirin 81 mg tablet,chewable 81 mg PO DAILY Qty: 30 2RF Label Comments: given in ED clopidogrel [Plavix] 75 mg tablet 75 mg PO DAILY 21 Days Qty: 21 0RF Label Comments: given in ED atorvastatin 80 mg tablet 80 mg PO DAILY Qty: 30 2RF metformin 1,000 mg Tablet 1,000 mg PO BID 0RF empagliflozin 25 mg Tablet 25 mg PO DAILY 0RF amlodipine 10 mg Tablet 10 mg PO DAILY 0RF allopurinol 300 mg Tablet 300 mg PO DAILY 0RF Discontinued metoprolol succinate 25 mg Tablet Extended Release 24 Hr 25 mg PO DAILY 0RF losartan 100 mg Tablet 100 mg PO DAILY 0RF spironolactone 50 mg Tablet 50 mg PO DAILY 0RF Diet/Activity/Treatments Diet: Diet as Tolerated and Low-sodium Activity: As tolerated Discharge Data Attending Provider: Torie Luna
--- NOTE | 2021-11-29 10:49 | PT.IPTN ---
Physical Therapy Treatment Note M2 PT-IP Current Condition Start: 11/28/21 08:50 Freq: NEEDED Status: Active Protocol: Document 11/28/21 09:38 [facility] (Rec: 11/28/21 09:46 [facility] [id number]) Physical Therapy Current Condition Current Condition Evaluation Date 11/28/21 Treatment Diagnosis possible CVA Onset Date 11/27/21 M3 PT-IP Subjective Start: 11/28/21 08:50 Freq: NEEDED Status: Active Protocol: Document 11/29/21 10:37 [facility] (Rec: 11/29/21 14:03 [facility] [id number]) Subjective Physical Therapy Visit Type Type Treatment Note Visit Start Time 10:37 Visit Stop Time 10:49 Total Visit Minutes 12 Number of DESIZING MACHINE BACK TENDER Visits 2 Physical Therapy Visit Comments Patient Comments Pt reports feeling weaker than baseline. Patient Goals return home M4 PT-IP Mobility and Gait Start: 11/28/21 08:50 Freq: NEEDED Status: Active Protocol: Document 11/29/21 10:37 [facility] (Rec: 11/29/21 14:03 [facility] [id number]) PT-Transfer Assessment Sit to and From Stand Sit to and from Stand Contact Guard Assistance,1 Person Assistance,Use of Upper Extremities Equipment Transfer Assistive Device Gait Belt,Straight Cane Orthotic/Prosthetic Devices or Brace: Yes Transfers Transfer Destination Chair Transfer Technique Pt ambulated w/ SPC Transfer Ability Level of Assist Contact Guard Assistance,1 Person Assistance,Use of Upper Extremities Comments Mobility Comments Pt in chair upon arrival and agreeable to ambulate but refused AFO. CGA for sit<> stand, pt then ambulated ~80 ft around room w/ CGA and SPC before returning to chair and refusing further treatment. Gait Assessment Gait Gait Assistance Required: Contact Guard Assist,1 Person Assist Distance (Feet) 80 Assistive Devices Assistive Device Gait Belt,Straight Cane Orthotic/Prosthetic Devices or Brace: Yes Gait Deviations General Gait Pattern Decreased Stride Length, Decreased Feet Clearance,Wide Based Gait Factors Limiting Gait Function Factors Limiting Gait Function Decreased Strength Comments Gait Comments Pt refused AFO but ambulated 80 ft w/ SPC CGA no LOB. M5 PT-IP Objective Assessments Start: 11/28/21 08:50 Freq: NEEDED Status: Active Protocol: Document 11/28/21 09:38 [facility] (Rec: 11/28/21 12:06 [facility] [id number]) Gross Range of Motion Upper Extremity ROM Impairments right UE WNL, left UE mod limited passively, unable to move actively Lower Extremity ROM Impairments right LE WNL, left LE min AROM , mod limited passively Strength Upper Extremity Strength Assessment Left Impaired Shoulder 1 Elbow 0 Wrist 0 Hand 0 Lower Extremity Strength Assessment Left Impaired Hip 1 Knee 2- Ankle 0 Comments Strength Comments ROM and strength assessments done grossly as patient had to go the bathroom. Coordination Assessment Assessment Coordination Comments WNL right, unable to perform tests on left Sensation Assessment Sensation Gross Sensation Left UE Impaired,Left LE Impaired Light Touch Impaired Proprioception (Position) Impaired Sensation Description Paresthesia,Numbness Muscle Tone Muscle Tone WNL No Other Assessments Other Other Assessments hypotonic left UE and LE M6 PT-IP Treatment Start: 11/28/21 08:50 Freq: NEEDED Status: Active Protocol: Document 11/29/21 10:37 [facility] (Rec: 11/29/21 14:03 [facility] [id number]) Physical Therapy Treatment Education Education Provided Safety M7 PT-IP Assessment and Plan Start: 11/28/21 08:50 Freq: NEEDED Status: Active Protocol: Document 11/29/21 10:37 [facility] (Rec: 11/29/21 14:03 [facility] [id number]) PT Summary Assessment and Plan Potential Rehabilitation Potential Good Status of Condition at Evaluation Evolving Summary Impairments Strength,Bed Mobility, Transfers,Gait Assessment Summary Pt limited by left sided weakness and low activity tolerance, but able to transfer CGA and ambulate ~80 ft w/ SPC CGA. Pt would benefit from outpatient rehab to improve gait, balance, and mobility. Goals Bed Mobility Goal Independent Transfer Goal Independent Gait Goal Independent,Crutches Gait Distance 100 Days to Meet Goals 3 Frequency of Treatment Frequency Of Treatment Twice a Day Treatment Plan Physical Therapy Treatment Plan Bed Mobility Training,Transfer Training,Gait Training, Therapeutic Exercise,Balance Retraining,Discharge Planning, Neuromuscular Re-ed Other Recommendations and Next Treatment gait training with forearm Focus crutch right, AFO Recommendations To Nursing Amount of Assist Needed 1 Person Assist Discharge Recommendations PT Discharge Recommendations Home with Assistance,Home Health,Acute Rehab,Outpatient PT Transportation Needs at Discharge Private Vehicle
--- NOTE | 2021-11-29 13:58 | CM.IDA ---
Initial DCP Assessment Note Pt is a 55 yo male, resident of [place], arrives for the second time to the ED 2.., CVA confirmed via MRI, hx 3 prior CVAs w/some residual weakness and facial droop PCP: Not Listed Payer: LOREN Perez Reviewed chart yesterday and today; patient cleared from therapy's stand point and patient eager to return home w/outpatient therapies. Met w/patient to confirm above. Patient states he is confident about his return home, spouse to transport and assist at home prn. 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 Yes Advance Directives on File No History Provided By Patient,Medical Record Comment In the ER 2.. w/dx of TIA. Returned 2.. w/confirmed CVA Prior Living Arrangements House Household Members spouse Type of transporation used prior to Relies on Others admit Independent with ADL's Mod Indp Min assist w/ADLs Is patient alert and oriented? Yes Barriers to Discharge No Discharge Plan Home Transportation Arrangement Spouse Referrals Initiated None needed Whiteboard Updated in Patient Room with Yes name and ext. # of Curator Of Photography And Prints
[2021-11-29] MEDS: ACETAMINOPHEN 325 MG TABLET 650 MG PO (14:07)
--- NOTE | 2021-11-29 17:10 | PC.NURSE ---
Pt is A&OX3. He remains with L side weakness. He states he feels back to baseline with L sided weakness. He ambulates with a cane independently in his room and denies dizziness. Orthostatic BP negative multiple times. He denies CP, SOB. MD clearing patient for discharge home this afternoon. He verbalizes understanding of discharge medications, and follow up with care. VSS, afebrile. He is escorted via wheelchair to private vehicle with at 1455 with all of his belongings including CPAP machine.
== END 2021-11-29 14:55 | disposition home or self-care (01) ==
LOC: ED 22:37 → AC 22:48
PROVIDERS: Admitting Provider Nurse Practitioner Family; Emergency Provider Emergency Medicine; Referring Provider Emergency Medicine; Visit Provider Nurse Practitioner Family
DX: R29.818 Other symptoms and signs involving the nervous system (principal); I69.954 Hemiplegia and hemiparesis following unspecified cerebrovascular disease affecting left non-dominant side; R29.706 NIHSS score 6; E78.5 Hyperlipidemia, unspecified; G50.0 Trigeminal neuralgia; I10 Essential (primary) hypertension; E66.9 Obesity, unspecified; Z68.31 Body mass index [BMI] 31.0-31.9, adult; E79.0 Hyperuricemia without signs of inflammatory arthritis and tophaceous disease; E11.65 Type 2 diabetes mellitus with hyperglycemia; Z79.84 Long term (current) use of oral hypoglycemic drugs; G45.9 Transient cerebral ischemic attack, unspecified
CPT/HCPCS: 36415; 70450; 70496; 70498; 70551; 80053; 80061; 80320; 81003; 82150; 82550; 82962; 83036; 83690; 83735; 83880; 84443; 84484; 84550; 85025; 85610; 85730; 86140; 87635; 92522; 93005; 94760; 96372; 96374; 97116; 97129; 97130; 97162; 97165; 97530; 99284; 99285; C9803; G0378; J1650; J1815; J2405; Q9967

== ENCOUNTER → 2022-03-10 15:16 | Outpatient (CLI) | payer OTHER, SELFPAY | PROVIDERS: Visit Provider Family Medicine | DX: T25.221A Burn of second degree of right foot, initial encounter (principal); T31.0 Burns involving less than 10% of body surface; X12.XXXA Contact with other hot fluids, initial encounter; E11.51 Type 2 diabetes mellitus with diabetic peripheral angiopathy without gangrene; E11.40 Type 2 diabetes mellitus with diabetic neuropathy, unspecified; Z79.01 Long term (current) use of anticoagulants; Z79.84 Long term (current) use of oral hypoglycemic drugs | CPT/HCPCS: 16020; 99204; 99213 ==

== ENCOUNTER → 2022-03-18 13:37 | Outpatient (CLI) | payer OTHER, SELFPAY | PROVIDERS: Visit Provider Family Medicine | DX: T25.221A Burn of second degree of right foot, initial encounter (principal); T31.0 Burns involving less than 10% of body surface; E11.51 Type 2 diabetes mellitus with diabetic peripheral angiopathy without gangrene; E11.40 Type 2 diabetes mellitus with diabetic neuropathy, unspecified; Z79.01 Long term (current) use of anticoagulants; Z79.84 Long term (current) use of oral hypoglycemic drugs | CPT/HCPCS: 16020 ==

== ENCOUNTER → 2022-03-25 13:54 | Outpatient (CLI) | payer OTHER, SELFPAY | PROVIDERS: Visit Provider Family Medicine | DX: T25.221A Burn of second degree of right foot, initial encounter (principal); T31.0 Burns involving less than 10% of body surface | CPT/HCPCS: 99212 ==

== ENCOUNTER → 2022-04-01 13:16 | Outpatient (CLI) | payer OTHER, SELFPAY | PROVIDERS: Visit Provider Family Medicine | DX: T25.221A Burn of second degree of right foot, initial encounter (principal); T31.0 Burns involving less than 10% of body surface; E11.51 Type 2 diabetes mellitus with diabetic peripheral angiopathy without gangrene; E11.40 Type 2 diabetes mellitus with diabetic neuropathy, unspecified; Z79.01 Long term (current) use of anticoagulants; Z79.84 Long term (current) use of oral hypoglycemic drugs | CPT/HCPCS: 16020 ==

== ENCOUNTER → 2022-04-09 14:43 | Outpatient (CLI) | payer OTHER, SELFPAY | PROVIDERS: Visit Provider Family Medicine | DX: T25.221A Burn of second degree of right foot, initial encounter (principal); T31.0 Burns involving less than 10% of body surface; E11.40 Type 2 diabetes mellitus with diabetic neuropathy, unspecified; E11.51 Type 2 diabetes mellitus with diabetic peripheral angiopathy without gangrene; I69.398 Other sequelae of cerebral infarction; R29.898 Other symptoms and signs involving the musculoskeletal system; Z79.01 Long term (current) use of anticoagulants; Z79.84 Long term (current) use of oral hypoglycemic drugs | CPT/HCPCS: 16020; 99213 ==

== ENCOUNTER → 2022-04-23 13:23 | Outpatient (CLI) | payer OTHER, SELFPAY | PROVIDERS: Visit Provider Family Medicine | DX: T25.221D Burn of second degree of right foot, subsequent encounter (principal); E11.628 Type 2 diabetes mellitus with other skin complications; E11.51 Type 2 diabetes mellitus with diabetic peripheral angiopathy without gangrene | CPT/HCPCS: 99212 ==

== ENCOUNTER 2025-04-01 18:49 | Inpatient (IN) | payer OTHER, SELFPAY ==
[2025-04-01] VITALS (33 sets, daily range): BP systolic 118–197; BP diastolic 87–153; PULSE 122–153; RESP 2–39; TEMP 31–36.3; O2SAT 93–98; BMI 36.1
--- NOTE | 2025-04-01 19:02 | ED.CHESTPAIN ---
HPI - Chest Pain General Chief Complaint: Arrhythmia/Palpitations Stated Complaint: SoB, History of Strokes Time Seen by Provider: 04/01/25 18:51 History of Present Illness HPI narrative: 59-year-old gentleman with multiple medical history including 5 previous strokes that left him with residual left-sided deficits presents today for concerns of weakness shortness of breath heart palpitation. Equally important patient states that for the past week he feels drunk and in the past that usually means that he has had a stroke again. He states like he feels like he is running a marathon at this point feels his heart racing. Patient denies fever chills sore throat back pain abdominal pain headache blurred vision difficulty swallowing speaking. Patient ambulates in electric wheelchair. Other than what is stated 14 point review of systems negative. Related Data Home Medications ?Medication ?Instructions ?Recorded ?Confirmed amlodipine 10 mg tablet 10 mg PO DAILY 02/13/20 04/01/25 allopurinol 300 mg tablet 300 mg PO DAILY 02/17/20 04/01/25 empagliflozin 25 mg tablet 25 mg PO DAILY 11/27/21 04/01/25 metformin 1,000 mg tablet 1,000 mg PO BID 11/27/21 04/01/25 albuterol 90 mcg/actuation aerosol 90 mcg inhalation Q4-6H PRN 04/01/25 04/01/25 inhaler shortness of breath calcium 600 mg (as 2 cap PO DAILY 04/01/25 04/01/25 carbonate)-vitamin D3 5 mcg (200 unit) capsule (Calcium 600 + D(3)) cholecalciferol (vitamin D3) 25 1,000 unit PO DAILY 04/01/25 04/01/25 mcg (1,000 unit) capsule clonidine 0.3 mg/24 hr weekly 1 patch transdermal QWEEK 04/01/25 04/01/25 transdermal patch ([id number]) empagliflozin 12.5 mg-metformin 1 tab PO BID 04/01/25 04/01/25 1,000 mg tablet losartan 100 mg tablet 100 mg PO DAILY 04/01/25 04/01/25 mirtazapine 30 mg tablet (Remeron) 30 mg PO BEDTIME 04/01/25 04/01/25 tamsulosin 0.4 mg capsule 0.4 mg PO BEDTIME 04/01/25 04/01/25 venlafaxine 150 mg tablet,extended 150 mg PO DAILY 04/01/25 04/01/25 release 24 hr Previous Rx's ?Medication ?Instructions ?Recorded atorvastatin 80 mg tablet 80 mg PO DAILY #30 tabs 11/27/21 Allergies Allergy/AdvReac Type Severity Reaction Status Date / Time Penicillins Allergy Severe Anaphylaxis Verified 04/01/25 19:00 Review of Systems Review of Systems ROS Unobtainable: All systems reviewed & are unremarkable except as noted in HPI and below Patient History Medical History (Updated 04/02/25 @ 00:57 by Jarrod Boyle DO) Obesity (BMI 30.0-34.9) Trigeminal neuralgia Kidney stones Gout Hyperlipidemia Hemiparesis affecting left side as late effect of cerebrovascular accident (CVA) CVA (cerebral vascular accident) Hypertension Surgical History History of incision and drainage History of excision of mass Status post gastric bypass for obesity History of excision of pilonidal cyst Family History Father Stroke Dementia Mother Cancer Social History household members: spouse Smoking Status: Never smoker alcohol intake frequency: 0-2 drinks per day Exam Narrative Exam Narrative: GENERAL: [59] year old patient appears stated age. Well-developed patient, in mild distress. HEAD: Atraumatic. Normocephalic. EYES: Pupils equal round and reactive. Extraocular motions intact. No scleral icterus. No injection or drainage. ENT: Nose without bleeding, purulent drainage. Throat without erythema, tonsillar hypertrophy or exudate. Airway patent. NECK: Trachea midline. Non tender CARDIOVASCULAR: Tachycardic Regular rate and rhythm without murmurs, gallops, or rubs. RESPIRATORY: Clear to auscultation. Breath sounds equal bilaterally. No wheezes, rales, or rhonchi. GASTROINTESTINAL: Abdomen soft, non-tender, nondistended. EXTREMITIES: No edema or joint tenderness. BACK: Nontender without deformity or crepitance. No flank tenderness. NEURO: AOx3. SKIN: No rash or erythema of visible areas Initial Vital Signs Initial Vital Signs: Vital Signs Pulse Rate 151 H 04/01/25 18:55 Blood Pressure 175/123 H 04/01/25 18:55 Pulse Oximetry 96 04/01/25 18:55 Course Orders Ordered: ED Orders 04/01/25 19:08 Complete Blood Count AUTO DIFF Stat Comprehensive Metabolic Panel Stat Troponin & CK Cardiac Panel Stat 04/01/25 19:28 BNP [NT-proBNP (BNP-Adult 18+)] Stat 04/01/25 19:42 CT angio chest PE protocol Stat XR chest 1V Stat EKG-12 Lead Stat 04/01/25 19:54 Venous Blood Gas Routine 04/01/25 21:40 BiPAP Ventilatory Support RT PROTOCOL 04/01/25 22:10 Troponin I Stat 04/01/25 23:43 EKG-12 Lead Stat 04/02/25 00:34 EKG-12 Lead Stat EKG-12 Lead Stat Heparin Sodium/Dextrose (Heparin Drip) 25,000 unit in 500 mls @ 30.59 mls/hr IV CONT CORINNA; Protocol Diltiazem HCl 125 mg/ Sodium (Chloride) 125 mls @ 5 mls/hr IV TITRATE CORINNA; Protocol Discontinued Medications Adenosine (Adenosine 6 Mg/2 Ml Vial) 6 mg IV NOW ONE Stop: 04/01/25 20:10 Last Admin: 04/01/25 19:42 Dose: 6 mg Documented By: MOY Adenosine (Adenosine 6 Mg/2 Ml Vial) 12 mg IV NOW ONE Stop: 04/01/25 20:10 Last Admin: 04/01/25 19:44 Dose: 12 mg Documented By: MOY Adenosine (Adenosine 6 Mg/2 Ml Vial) 12 mg IV NOW ONE Stop: 04/01/25 20:10 Last Admin: 04/01/25 19:55 Dose: 12 mg Documented By: MOY Apixaban (Apixaban 5 Mg Tablet) 5 mg PO NOW ONE Stop: 04/02/25 00:41 Aspirin (Aspirin Ec 325 Mg Tablet) 325 mg PO NOW ONE Stop: 04/02/25 00:41 Diazepam (Diazepam 10 Mg/2 Ml Syringe) 5 mg IV NOW ONE Stop: 04/01/25 21:28 Last Admin: 04/01/25 21:30 Dose: 5 mg Documented By: MOY Diltiazem HCl (Diltiazem 25 Mg/5 Ml Sdv) 25 mg IV NOW ONE Stop: 04/01/25 19:57 Last Admin: 04/01/25 19:58 Dose: 25 mg Documented By: MLWendi Diltiazem HCl (Diltiazem 25 Mg/5 Ml Sdv) 10 mg IV NOW ONE Stop: 04/01/25 20:10 Last Admin: 04/01/25 20:03 Dose: 10 mg Documented By: MLWendi Furosemide (Furosemide 40 Mg/4 Ml Vial) 40 mg IV NOW ONE Stop: 04/01/25 21:22 Last Admin: 04/01/25 21:28 Dose: 40 mg Documented By: MLWendi Heparin Sodium (Porcine) (Heparin 5,000 Unit/Ml Vial) 7,500 unit 60 unit/kg (7500 unit) IV NOW ONE Stop: 04/02/25 00:39 Amiodarone HCl/Dextrose (Nexterone) 150 mg in 100 mls @ 600 mls/hr IV NOW ONE; Protocol Stop: 04/01/25 20:35 Last Infusion: 04/01/25 20:48 Dose: Infused Documented By: Admin: 04/01/25 20:29 Dose: 600 mls/hr Documented By: MLWendi Lidocaine HCl (Lidocaine 1% 20 Ml) 1 ml SUBCUT NOW ONE Stop: 04/01/25 20:10 Last Admin: 04/01/25 19:30 Dose: 1 ml Documented By: MLWendi Lorazepam (Lorazepam 2 Mg/Ml Inj) 2 mg IV NOW ONE Stop: 04/01/25 21:22 Last Admin: 04/01/25 21:39 Dose: Not Given Documented By: MOY Metoprolol Tartrate (Metoprolol Tartrate 5 Mg/5 Ml Inj) 5 mg IV Q5M [facility] Stop: 04/02/25 00:26 Last Admin: 04/02/25 00:33 Dose: 5 mg Documented By: Admin: 04/02/25 00:22 Dose: 5 mg Documented By: Admin: 04/02/25 00:13 Dose: 5 mg Documented By: Vital Signs Vital signs: Vital Signs - 8 hr 04/01/25 18:55 04/01/25 18:55 04/01/25 19:00 Temperature 97.3 F L Pulse Rate 151 H 151 H Respiratory Rate 22 Blood Pressure 175/123 H 175/123 H Pulse Oximetry 96 97 Oxygen Delivery Method Room Air Fraction of Inspired Oxygen 04/01/25 19:04 04/01/25 19:09 04/01/25 19:09 Temperature Pulse Rate 151 H 152 H Respiratory Rate 29 H 24 Blood Pressure 177/135 H Pulse Oximetry 96 Oxygen Delivery Method Fraction of Inspired Oxygen 04/01/25 19:30 04/01/25 19:30 04/01/25 19:58 Temperature Pulse Rate 152 H Respiratory Rate 25 H Blood Pressure 183/135 H 171/124 H Pulse Oximetry 96 Oxygen Delivery Method Fraction of Inspired Oxygen 04/01/25 19:58 04/01/25 20:00 04/01/25 20:00 Temperature Pulse Rate 153 H 143 H Respiratory Rate 24 23 Blood Pressure 164/108 H Pulse Oximetry 95 93 Oxygen Delivery Method Fraction of Inspired Oxygen 04/01/25 20:05 04/01/25 20:05 04/01/25 20:11 Temperature Pulse Rate 130 H 144 H Respiratory Rate 23 23 Blood Pressure 159/106 H Pulse Oximetry 93 95 Oxygen Delivery Method Fraction of Inspired Oxygen 04/01/25 20:11 04/01/25 20:15 04/01/25 20:15 Temperature Pulse Rate 122 H Respiratory Rate 22 Blood Pressure 182/113 H 172/91 H Pulse Oximetry 94 Oxygen Delivery Method Fraction of Inspired Oxygen 04/01/25 20:20 04/01/25 20:20 04/01/25 20:25 Temperature Pulse Rate 140 H Respiratory Rate 22 Blood Pressure 182/88 H 182/90 H Pulse Oximetry 94 Oxygen Delivery Method Fraction of Inspired Oxygen 04/01/25 20:25 04/01/25 20:30 04/01/25 20:30 Temperature Pulse Rate 141 H 141 H Respiratory Rate 23 23 Blood Pressure 177/92 H Pulse Oximetry 93 93 Oxygen Delivery Method Fraction of Inspired Oxygen 04/01/25 20:36 04/01/25 20:36 04/01/25 20:42 Temperature Pulse Rate 143 H 139 H Respiratory Rate 23 23 Blood Pressure 186/153 H Pulse Oximetry 93 94 Oxygen Delivery Method Fraction of Inspired Oxygen 04/01/25 20:42 04/01/25 20:45 04/01/25 20:45 Temperature Pulse Rate 135 H Respiratory Rate 23 Blood Pressure 135/97 H 120/94 H Pulse Oximetry 94 Oxygen Delivery Method Fraction of Inspired Oxygen 04/01/25 20:51 04/01/25 20:51 04/01/25 20:57 Temperature Pulse Rate 138 H Respiratory Rate 22 Blood Pressure 118/87 142/103 H Pulse Oximetry 95 Oxygen Delivery Method Fraction of Inspired Oxygen 04/01/25 20:57 04/01/25 21:18 04/01/25 21:21 Temperature Pulse Rate 142 H 137 H Respiratory Rate 24 23 Blood Pressure 197/135 H Pulse Oximetry 97 93 Oxygen Delivery Method Fraction of Inspired Oxygen 04/01/25 21:21 04/01/25 21:25 04/01/25 21:25 Temperature Pulse Rate 141 H 140 H Respiratory Rate 22 24 Blood Pressure 174/121 H Pulse Oximetry 96 96 Oxygen Delivery Method Fraction of Inspired Oxygen 04/01/25 21:30 04/01/25 21:30 04/01/25 21:35 Temperature Pulse Rate 140 H 140 H Respiratory Rate 27 H 22 Blood Pressure 167/103 H Pulse Oximetry 96 98 Oxygen Delivery Method Fraction of Inspired Oxygen 04/01/25 21:35 04/01/25 21:36 04/01/25 21:45 Temperature Pulse Rate 148 H Respiratory Rate 21 Blood Pressure 155/103 H 167/103 H Pulse Oximetry 96 Oxygen Delivery Method Fraction of Inspired Oxygen 04/01/25 21:45 04/01/25 22:00 04/01/25 22:00 Temperature Pulse Rate 150 H Respiratory Rate 35 H Blood Pressure 139/87 145/102 H Pulse Oximetry 96 Oxygen Delivery Method BiPAP Fraction of Inspired Oxygen 04/01/25 22:16 04/01/25 22:16 04/01/25 22:30 Temperature Pulse Rate 150 H 150 H Respiratory Rate 39 H 29 H Blood Pressure 148/108 H Pulse Oximetry 96 96 Oxygen Delivery Method Fraction of Inspired Oxygen 04/01/25 22:30 04/01/25 23:00 04/01/25 23:13 Temperature Pulse Rate 152 H Respiratory Rate Blood Pressure 152/92 H 166/109 H Pulse Oximetry 97 Oxygen Delivery Method Fraction of Inspired Oxygen 04/01/25 23:13 04/01/25 23:18 04/01/25 23:18 Temperature Pulse Rate 150 H 151 H Respiratory Rate 22 2 L Blood Pressure 136/102 H Pulse Oximetry 96 Oxygen Delivery Method Fraction of Inspired Oxygen 04/01/25 23:30 04/01/25 23:31 04/01/25 23:31 Temperature Pulse Rate 150 H 150 H Respiratory Rate 21 22 Blood Pressure 135/91 H Pulse Oximetry 96 96 Oxygen Delivery Method Fraction of Inspired Oxygen 04/02/25 00:00 04/02/25 00:00 04/02/25 00:02 Temperature Pulse Rate 150 H Respiratory Rate 21 Blood Pressure 165/113 H 159/112 H Pulse Oximetry 96 Oxygen Delivery Method Fraction of Inspired Oxygen 04/02/25 00:02 04/02/25 00:24 04/02/25 00:24 Temperature Pulse Rate 150 H 134 H Respiratory Rate 19 20 Blood Pressure 160/106 H Pulse Oximetry 95 96 Oxygen Delivery Method Fraction of Inspired Oxygen 04/02/25 00:26 04/02/25 00:30 04/02/25 00:34 Temperature Pulse Rate 130 H 129 H 128 H Respiratory Rate 21 21 Blood Pressure Pulse Oximetry 95 95 Oxygen Delivery Method Fraction of Inspired Oxygen 04/02/25 00:34 Temperature Pulse Rate Respiratory Rate Blood Pressure 128/100 H Pulse Oximetry Oxygen Delivery Method Fraction of Inspired Oxygen MDM - Chest Pain Lab Data 04/01/25 19:08 04/01/25 19:08 Labs: Lab Results 04/01/25 04/01/25 04/01/25 Range/Units 19:08 19:28 19:54 WBC 6.4 (4.5-11.0) X10^3/uL RBC 4.67 (4.5-5.9) X10^6/uL Hgb 13.4 L (13.5-17.5) g/dL Hct 40.8 L (41-53) % MCV 87.3 (80-100) fL MCH 28.8 (26-34) PG MCHC 33.0 (30-36) % RDW 15.1 H (11.6-14.8) % Plt Count 248 (150-400) X10^3/uL Neut % (Auto) 70.8 (50-75) % Lymph % (Auto) 19.5 L (25-40) % Hendry % (Auto) 8.0 (3-14) % Eos % (Auto) 0.8 L (2-4) % Baso % (Auto) 0.9 (0-2) % Neut # (Auto) 4500 (9140-5063) /uL Lymph # (Auto) 1200 (5384-0297) /uL Hendry # (Auto) 500 (0-900) /uL Eos # (Auto) 100 (0-450) /uL Baso # (Auto) 100 (0-100) /uL VBG pH 7.40 (7.33-7.43) VBG pCO2 43.8 L (45-50) mmHg VBG pO2 30 L (35-45) mmHg VBG HCO3 27 (24-28) mmol/L VBG Total CO2 26 (24-29) mmol/L VBG O2 Saturation 58 L (70-75) % VBG Base Excess 2.0 (0-4) mmol/L FiO2 % 21.0 % % Sodium 141 (137-145) mmol/L Potassium 4.4 (3.4-5.1) mmol/L Chloride 105 (98-107) mmol/L Carbon Dioxide 29 (22-32) mmol/L BUN 10 (9-20) mg/dL Creatinine 1.06 (0.66-1.25) mg/dL Estimated GFR > 60 (>60) mL/min BUN/Creatinine Ratio 9.4 (6-22) Glucose 208 H (70-99) mg/dL Calcium 8.8 (8.4-10.2) mg/dL Total Bilirubin 0.7 (0.2-1.3) mg/dL AST 32 (17-59) IU/L ALT 20 (<50) IU/L Alkaline Phosphatase 121 (38-126) U/L Total Creatine Kinase 146 (55-170) U/L Troponin I 0.088 H (0.01-0.034) ng/mL NT-Pro-B Natriuret Pep 1860 H (<125) pg/mL Total Protein 6.6 (6.3-8.2) g/dL Albumin 4.0 (3.5-5.0) g/dL Globulin 2.6 (1.7-4.1) g/dL Albumin/Globulin Ratio 1.5 (1.0-2.8) // Range/Units 22:10 WBC (4.5-11.0) X10^3/uL RBC (4.5-5.9) X10^6/uL Hgb (13.5-17.5) g/dL Hct (41-53) % MCV (80-100) fL MCH (26-34) PG MCHC (30-36) % RDW (11.6-14.8) % Plt Count (150-400) X10^3/uL Neut % (Auto) (50-75) % Lymph % (Auto) (25-40) % Hendry % (Auto) (3-14) % Eos % (Auto) (2-4) % Baso % (Auto) (0-2) % Neut # (Auto) (3093-3600) /uL Lymph # (Auto) (6530-7775) /uL Hendry # (Auto) (0-900) /uL Eos # (Auto) (0-450) /uL Baso # (Auto) (0-100) /uL VBG pH (7.33-7.43) VBG pCO2 (45-50) mmHg VBG pO2 (35-45) mmHg VBG HCO3 (24-28) mmol/L VBG Total CO2 (24-29) mmol/L VBG O2 Saturation (70-75) % VBG Base Excess (0-4) mmol/L FiO2 % % Sodium (137-145) mmol/L Potassium (3.4-5.1) mmol/L Chloride (98-107) mmol/L Carbon Dioxide (22-32) mmol/L BUN (9-20) mg/dL Creatinine (0.66-1.25) mg/dL Estimated GFR (>60) mL/min BUN/Creatinine Ratio (6-22) Glucose (70-99) mg/dL Calcium (8.4-10.2) mg/dL Total Bilirubin (0.2-1.3) mg/dL AST (17-59) IU/L ALT (<50) IU/L Alkaline Phosphatase (38-126) U/L Total Creatine Kinase (55-170) U/L Troponin I 0.090 H (0.01-0.034) ng/mL NT-Pro-B Natriuret Pep (<125) pg/mL Total Protein (6.3-8.2) g/dL Albumin (3.5-5.0) g/dL Globulin (1.7-4.1) g/dL Albumin/Globulin Ratio (1.0-2.8) Imaging Data CT scan - chest: Radiologist's Impression: [address] [address] [address] Scan Report Signed Patient: Tera Lee MR#: [id number] : 1965 Acct:[id number] Age/Sex: 59 / M Date of Service: 04/01/25 Loc: ED Accession Number: [id number] Procedure: CT angio chest PE protocol Ordering Provider: Jarrod Boyle D.O. PROCEDURE: CT ANGIO CHEST PE PROTOCOL INDICATIONS: chest tight / shorntess of breath/ tachy TECHNIQUE: After the administration of intravenous contrast, 2 mm thick sections acquired from the pulmonary apices to the posterior costophrenic angles. 3-dimensional maximum intensity projection (MIP) coronal and sagittal reformats were then acquired through the thorax. For radiation dose reduction, the following was used: automated exposure control, adjustment of mA and/or kV according to patient size. COMPARISON: [facility], CT, CT CHEST W CON, 02/15/2020, 16:27. FINDINGS: Image quality: Diagnostic. Pulmonary arteries: Pulmonary arteries are normal in size, and demonstrate no intraluminal filling defects to suggest central pulmonary embolism. Lower Neck: No enlarged lymph nodes. Thyroid: No thyroid nodules which require sonographic follow up, per consensus guidelines. Axillae: No enlarged lymph nodes. Chest Wall: Unremarkable. Bones: Unremarkable. Lungs and Pleura: There is extensive interlobular septal thickening. There are [id number] bilateral pleural effusions, with mild bilateral basilar compressive atelectasis. Ground-glass density bilaterally. Heart: There is significant left ventricular as well as left atrial dilatation. Some contrast reflux in the IVC and hepatic veins, suggestive of some tricuspid regurgitation. No pericardial effusion. Thoracic Vessels: No aortic aneurysm. Mediastinum and Justina: No enlarged lymph nodes. Esophagus: No wall thickening. No hiatal hernia. Upper Abdomen: Visualized upper abdomen solid organs and bowel loops appear normal. IMPRESSION: 1. No definite signs of pulmonary emboli allowing for significant breathing motion artifact. 2. Findings of significant interstitial and alveolar pulmonary edema, with small to moderate bilateral pleural effusions. Chest x-ray: Radiologist's Impression: [address] [address] XRay Report Signed Patient: Tera Lee MR#: [id number] : 1965 Acct:[id number] Age/Sex: 59 / M Date of Service: 04/01/25 Loc: ED Accession Number: [id number] Procedure: XR chest 1V Ordering Provider: Jarrod Boyle D.O. PROCEDURE: XR CHEST 1V INDICATIONS: chest pain TECHNIQUE: One view of the chest was acquired. COMPARISON: None. FINDINGS: Surgical changes and devices: None. Lungs and pleura: Diffuse interstitial prominence. Streaky bibasilar opacities likely representing atelectasis. No focal consolidation. No pneumothorax or substantial pleural effusion. Mediastinum: Mediastinal contours appear normal. Heart size is enlarged. Bones and chest wall: No suspicious bony lesions. Overlying soft tissues appear unremarkable. IMPRESSION: Cardiomegaly. Diffuse bilateral interstitial prominence which may represent pulmonary edema/CHF, atypical infection, or chronic interstitial lung disease. No dense consolidation seen. ECG Data Interpretation: Wide complex Tachycardia HR 152 TX undetermined QRS [address]-t wave change No previous EKG to compare against MDM Narrative Medical decision making narrative: Vital signs, nurse triage note, medication list, previous ER visits, and all imaging studies reviewed. Chest x-ray showed cardiomegaly diffuse bilateral interstitial prominence which may represent pulmonary edema CHF atypical infection or chronic interstitial lung disease but no dense consolidation. CTA showed no definite signs of PE, but significant interstitial and alveolar pulmonary edema with small to moderate bilateral pleural effusion. VBG showed pH 7.4 pCO2 of 43.8 PO2 of 30 bicarb of 27 O2 sat of 50%. Glucose 208. Troponin 0.088 2nd troponin 0.090. Patient only on arrival was in wide QRS tachycardia patient was given adenosine 6, 12, and 12 which did not did not rate control heart rate of 150s. Subsequently patient was given diltiazem 25 mg IV bolus x1 for which it did come down to the 130s for a brief period of time. Patient then was given an additional 10 mg IV bolus of diltiazem and again came down to the 130s for brief period time and then would subsequently went back to the 150s. Patient was then started on amiodarone 150 mg over 10 minutes which again showed the heart rate between 130s and 150s but ultimately stayed in the 150s. Case was discussed with Dr. Terrell cardiology on-call regarding elevated troponin BNP EKG findings and also rate versus rhythm control for patient for which he recommended metoprolol IV, aspirin and Eliquis. Heart rate now is down into the 120s patient restarted on diltiazem drip at 5 mg an hour. Patient was also placed on BiPAP for chest tightness and shortness of breath along with Lasix 40 mg IV for which he has diuresed over 2000 mL. Case discussed with who has graciously accepted the patient for inpatient admission. Critical Care Time Critical Care Time Total Critical Care Time: 60 Attestation: I have personally spent 60 minutes of critical care time, exclusive of time spent on any procedures, in evaluation and management of this critically ill patient?s condition of Atrial Fibrillation, rapid ventricular response. I provided the following critical care treatment adenosine, diltiazem, amiodarone, lasix, eliquis, diltiazem drip and cardiology consult Discharge Plan Departure Patient Disposition: Admitted As Inpatient Clinical Impression: Atrial fibrillation with rapid ventricular response CHF (congestive heart failure) Qualifiers: Heart failure type: unspecified Heart failure chronicity: acute Qualified Code(s): I50.9 - Heart failure, unspecified Admit Date/Time: 04/02/25 00:54 Admit Provider: Howard Reeves
[2025-04-01] MEDS: LIDOCAINE 1% 20 ML SUBCUT (19:30)
[2025-04-01] MEDS: ADENOSINE 6 MG/2 ML VIAL IV (19:42)
--- NOTE | 2025-04-01 19:42 | EKG_ITS ---
[address] [address] Test Date: 2025-04-01 Pat Name: Tera Lee Department: Room: Gender: Male [employer] Worker: : 1965 Requested By: Order Number: [id number] Reading MD: Jarrod Colón MD Measurements Intervals [place] Rate: 152 P: ND: QRS: 15 QRSD: 128 T: 217 QT: 302 QTc: 480 Interpretive Statements Critical Test Result: High HR Sinus tachycardia Nonspecific intraventricular block Nonspecific T wave abnormality Electronically Signed On 04-02-2025 9:12:23 PDT by Jarrod Colón MD
--- NOTE | 2025-04-01 19:42 | DI.CT.S_ITS ---
PROCEDURE: CT ANGIO CHEST PE PROTOCOL INDICATIONS: chest tight / shorntess of breath/ tachy TECHNIQUE: After the administration of intravenous contrast, 2 mm thick sections acquired from the pulmonary apices to the posterior costophrenic angles. 3-dimensional maximum intensity projection (MIP) coronal and sagittal reformats were then acquired through the thorax. For radiation dose reduction, the following was used: automated exposure control, adjustment of mA and/or kV according to patient size. COMPARISON: [facility], CT, CT CHEST W CON, 02/15/2020, 16:27. FINDINGS: Image quality: Diagnostic. Pulmonary arteries: Pulmonary arteries are normal in size, and demonstrate no intraluminal filling defects to suggest central pulmonary embolism. Lower Neck: No enlarged lymph nodes. Thyroid: No thyroid nodules which require sonographic follow up, per consensus guidelines. Axillae: No enlarged lymph nodes. Chest Wall: Unremarkable. Bones: Unremarkable. Lungs and Pleura: There is extensive interlobular septal thickening. There are [id number] bilateral pleural effusions, with mild bilateral basilar compressive atelectasis. Ground-glass density bilaterally. Heart: There is significant left ventricular as well as left atrial dilatation. Some contrast reflux in the IVC and hepatic veins, suggestive of some tricuspid regurgitation. No pericardial effusion. Thoracic Vessels: No aortic aneurysm. Mediastinum and Justina: No enlarged lymph nodes. Esophagus: No wall thickening. No hiatal hernia. Upper Abdomen: Visualized upper abdomen solid organs and bowel loops appear normal. IMPRESSION: 1. No definite signs of pulmonary emboli allowing for significant breathing motion artifact. 2. Findings of significant interstitial and alveolar pulmonary edema, with small to moderate bilateral pleural effusions. Dictated by: Guy Brower M.D. on 04/01/2025 at 21:45 Approved by: Guy Brower M.D. on 04/01/2025 at 21:50
--- NOTE | 2025-04-01 19:42 | DI.RAD.S_ITS ---
PROCEDURE: XR CHEST 1V INDICATIONS: chest pain TECHNIQUE: One view of the chest was acquired. COMPARISON: None. FINDINGS: Surgical changes and devices: None. Lungs and pleura: Diffuse interstitial prominence. Streaky bibasilar opacities likely representing atelectasis. No focal consolidation. No pneumothorax or substantial pleural effusion. Mediastinum: Mediastinal contours appear normal. Heart size is enlarged. Bones and chest wall: No suspicious bony lesions. Overlying soft tissues appear unremarkable. IMPRESSION: Cardiomegaly. Diffuse bilateral interstitial prominence which may represent pulmonary edema/CHF, atypical infection, or chronic interstitial lung disease. No dense consolidation seen. Dictated by: Ramirez Buchanan M.D. on 04/01/2025 at 20:09 Approved by: Ramirez Buchanan M.D. on 04/01/2025 at 20:11
[2025-04-01] MEDS: ADENOSINE 6 MG/2 ML VIAL 12 MG IV ×2 (19:44→19:55)
[2025-04-01 19:48] LABS: Add Manual Diff / Slide Review NO; Hematocrit 40.8 % (41-53); Hemoglobin 13.4 g/dL (13.5-17.5); Lymphocytes Absolute Auto 1200 /uL (1100-4500); Mean Corpuscular HGB Conc 33.0 % (30-36); Mean Corpuscular Hemoglobin 28.8 PG (26-34); Mean Corpuscular Volume 87.3 fL (80-100); Platelet Count 248 X10^3/uL (150-400)
[2025-04-01 19:57] LABS: Base Excess VBG 2.0 mmol/L (0-4); HCO3 VBG 27 mmol/L (24-28); Oxygen Saturation VBG 58 % (70-75); PCO2 VBG 43.8 mmHg (45-50); PO2 VBG 30 mmHg (35-45); Total CO2 VBG 26 mmol/L (24-29); pH VBG 7.40 (7.33-7.43)
[2025-04-01 19:58] LABS: Alanine Aminotransferase 20 IU/L (<50); Albumin 4.0 g/dL (3.5-5.0); Albumin Globulin Ratio 1.5 (1.0-2.8); Alkaline Phosphatase 121 U/L (38-126); Blood Urea Nitrogen 10 mg/dL (9-20); Calcium 8.8 mg/dL (8.4-10.2); Carbon Dioxide 29 mmol/L (22-32); Chloride 105 mmol/L (98-107); Creatine Kinase 146 U/L (55-170); Estimated Glomerular Filt Rate > 60 mL/min (>60); Globulin 2.6 g/dL (1.7-4.1); Glucose 208 mg/dL (70-99); HEMOLYSIS 29 (0-50); Potassium 4.4 mmol/L (3.4-5.1); Sodium 141 mmol/L (137-145); Total Protein 6.6 g/dL (6.3-8.2)
[2025-04-01 20:10] LABS: Troponin I 0.088 ng/mL (0.01-0.034)
[2025-04-01] MEDS: AMIODARONE 150 MG/100 ML PIGGYBACK 600 MG IV (20:29)
[2025-04-01] MEDS: FUROSEMIDE 40 MG/4 ML VIAL IV (21:28)
[2025-04-01 21:50] LABS: NT-proBNP (BNP-Adult 18+) 1860 pg/mL (<125)
--- NOTE | 2025-04-01 22:15 | PC.NURSE ---
Pt using BIPAP, states he is feeling much better with the bipap on. Troponin sent to lab.
[2025-04-01 23:18] LABS: Troponin I 0.090 ng/mL (0.01-0.034)
--- NOTE | 2025-04-01 23:43 | EKG_ITS ---
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
[2025-04-02] VITALS (58 sets, daily range): BP systolic 91–165; BP diastolic 54–113; PULSE 58–150; RESP 14–43; TEMP 32–36.8; O2SAT 89–100; BMI 34.8
--- NOTE | 2025-04-02 | DI.ECHO.S_ITS ---
[facility] : : [address] : : [place] : : [id number] : : Phone: [phone] Echocardiogram Report + + :Name: SOFYA JOHNS Study Date: 04/02/2025 Height: 74 in : :[facility] ReadingLocation: Weight: 281 lb : : Gender: Male BSA: 2.5 m2 : :: 1965 Age: 59 yrs BP: 120/74 mmHg: :Reason For Study: ATRIAL FIBRILLATION : :Ordering Physician: KEREN, : :LOCO Performed By: Delvin Calero : :Referring: LOCO VELIZ : + + Interpretation Summary Technically difficult study due to body habitus. 1) Moderately enlarged left ventricle with severely reduced systolic function (EF 20-25%). 2) Mildly enlarged right ventricle with mildly reduced function. 3) There is mild to moderate mitral regurgitation. 4) There are moderate-sized bilateral pleural effusions noted. 5) Compared to the Echo done 03/20/2025, LVEF has decreased from normal to severely reduced on this study. Procedure: A two-dimensional transthoracic echocardiogram with color flow and Doppler was performed. A contrast injection of Definity was performed to improve assessment of LV function. The study quality was technically difficult. Comparison is made with the echocardiogram of 03/20/2015. The patient was in atrial fibrillation with heart rates between 70-107 bpm during the exam. Left Ventricle: The left ventricle is moderately dilated. Left ventricular wall thickness is mildly increased. There is no ventricular septal defect visualized. The ejection fraction is estimated to be 20-25%. There is severe global hypokinesis of the left ventricle. Diastolic function could not be accurately assessed due to atrial fibrillation. Right Ventricle: The right ventricle is mildly dilated. Right ventricular systolic function is mildly reduced. Atria: The left atrium is severely dilated. Right atrial size is normal. There is no Doppler evidence for an interatrial shunt. Mitral Valve: There is mild mitral annular calcification. The mitral valve leaflets are mildly calcified. There is mild to moderate mitral regurgitation. Aortic Valve: The aortic valve is trileaflet. The aortic valve opens well. There is no aortic valve stenosis. No aortic regurgitation is present. Tricuspid Valve: The tricuspid valve leaflets are thin and pliable. There is a trace or physiologic amount of tricuspid regurgitation. Pulmonic Valve: The pulmonic valve is not well seen, but is grossly normal. There is no pulmonic valvular regurgitation. Great Vessels: The aortic root is normal size. The ascending aorta is mildly enlarged. The pulmonary artery is normal size. The IVC is dilated, but has some respiratory collapse suggesting high central venous pressure. Pericardium/ Pleura There is a trivial pericardial effusion noted. There are moderate-sized bilateral pleural effusions noted. MMode/2D Measurements & Calculations LVIDd: 6.9 cm LVOT diam: 2.1 cm LVIDs: 5.7 cm Ao root diam: 3.3 cm FS: 18.0 % asc Aorta Diam: 3.9 cm EPSS: 2.2 cm IVSd: 1.1 cm LVPWd: 1.1 cm LV gtz. diameter/BSA (cm/m^2): 2.8 LV sys. diameter/BSA (cm/m^2): 2.3 LA A2 area: 32.9 cm2 RA long axis: 5.2 cm LA A4 area: 32.4 cm2 RA area: 17.9 cm2 LA length (vol): 7.1 cm RA vol: 52.7 ml LA vol: 127.4 ml RA : 21.0 ml/m2 LA vol index: 50.8 ml/m2 IVC diam: 2.9 cm RVD1 (basal): 4.1 cm RVD2 (mid): 3.2 cm TAPSE: 1.7 cm Doppler Measurements & Calculations Ao V2 max: 171.9 cm/sec LVOT Max David: 104.9 cm/sec Ao V2 mean: 134.3 cm/sec LV V1 max P.4 mmHg Ao max P.8 mmHg LV V1 VTI: 17.5 cm Ao mean P.7 mmHg ZHANNA(I,D): 1.7 cm2 Ao V2 VTI: 34.2 cm ZHANNA(V,D): 2.0 cm2 sev ratio: 0.51 ZHANNA indexed to BSA (cm^2/m^2): 0.68 MV E max david: 103.0 cm/sec PA V2 max: 110.9 cm/sec MV A max david: 0.36 cm/sec PA V2 mean: 79.4 cm/sec MV E/A: 288.6 PA mean P.8 mmHg Med Peak E' David: 6.5 cm/sec PA pr(Accel): 41.3 mmHg E/E' med: 15.8 Lat Peak E' David: 8.3 cm/sec E/E' lat: 12.4 E/e' average: 14.1 MV dec time: 0.07 sec SV(LVOT): 58.6 ml Reading Physician:10:43 AM
[2025-04-02] MEDS: METOPROLOL TARTRATE 5 MG/5 ML INJ IV ×3 (00:13→00:33)
--- NOTE | 2025-04-02 00:34 | EKG_ITS ---
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
[2025-04-02] MEDS: ASPIRIN EC 325 MG TABLET PO (01:05)
[2025-04-02] MEDS: APIXABAN 5 MG TABLET PO ×3 (01:05→20:20)
--- NOTE | 2025-04-02 01:13 | PC.NURSE ---
Blue top obtained and sent
[2025-04-02 01:28] LABS: INR 1.1 (0.9-1.3); Prothrombin Time 12.0 SECONDS (9.4-12.5)
[2025-04-02 01:31] LABS: PTT Partial Thromboplastin Tim 32 SECONDS (25.1-36.5)
--- NOTE | 2025-04-02 01:38 | PM.HP.1 ---
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 Per the patient's report, over the past week, the patient has feel a little drowsy and was concerned that he might have another stroke. The patient also started to have some shortness of breath and palpitation with chest tightness but denies any lower extremity edema. The patient also denies any recent fever, chills, nausea, vomiting, diarrhea or coughing. In the emergency room, the patient was hemodynamically stable although was in A-fib new onset RVR. The patient initially was given multiple doses of adenosine followed by diltiazem drip. The patient troponin initially was 0.01 and then increased to 0.08 and then ultimately 0.09. Cardiology was consulted and recommended to admit the patient for rate control and thinks that this elevated troponin is likely due to demand ischemia from A-fib RVR. The patient also has signs of volume overload and was given IV Lasix 40 mg x 1. Apixaban was also initiated with aspirin. The patient was saturating well on room air per ER physician. Glucose was in the 200s and BNP 1800. Also CT angio of the chest shows no PE but signs of pulmonary edema with small to moderate bilateral effusion. [facility] Medical History (Updated 04/02/25 @ 00:57 by Jarrod Boyle DO) Obesity (BMI 30.0-34.9) Trigeminal neuralgia Kidney stones Gout Hyperlipidemia Hemiparesis affecting left side as late effect of cerebrovascular accident (CVA) CVA (cerebral vascular accident) Hypertension Surgical History History of incision and drainage History of excision of mass Status post gastric bypass for obesity History of excision of pilonidal cyst Family History Father Stroke Dementia Mother Cancer Social History household members: spouse Smoking Status: Never smoker Meds Home Medications and Allergies Home Medications ?Medication ?Instructions ?Recorded ?Confirmed ?Type amlodipine 10 mg tablet 10 mg PO DAILY 02/13/20 04/01/25 History allopurinol 300 mg tablet 300 mg PO DAILY 02/17/20 04/01/25 History atorvastatin 80 mg tablet 80 mg PO DAILY #30 tabs 11/27/21 04/01/25 Rx empagliflozin 25 mg tablet 25 mg PO DAILY 11/27/21 04/01/25 History metformin 1,000 mg tablet 1,000 mg PO BID 11/27/21 04/01/25 History albuterol 90 mcg/actuation aerosol 90 mcg inhalation Q4-6H PRN 04/01/25 04/01/25 History inhaler shortness of breath calcium 600 mg (as 2 cap PO DAILY 04/01/25 04/01/25 History carbonate)-vitamin D3 5 mcg (200 unit) capsule (Calcium 600 + D(3)) cholecalciferol (vitamin D3) 25 1,000 unit PO DAILY 04/01/25 04/01/25 History mcg (1,000 unit) capsule clonidine 0.3 mg/24 hr weekly 1 patch transdermal QWEEK 04/01/25 04/01/25 History transdermal patch ([id number]) empagliflozin 12.5 mg-metformin 1 tab PO BID 04/01/25 04/01/25 History 1,000 mg tablet losartan 100 mg tablet 100 mg PO DAILY 04/01/25 04/01/25 History mirtazapine 30 mg tablet (Remeron) 30 mg PO BEDTIME 04/01/25 04/01/25 History tamsulosin 0.4 mg capsule 0.4 mg PO BEDTIME 04/01/25 04/01/25 History venlafaxine 150 mg tablet,extended 150 mg PO DAILY 04/01/25 04/01/25 History release 24 hr Allergies Allergy/AdvReac Type Severity Reaction Status Date / Time Penicillins Allergy Severe Anaphylaxis Verified 04/01/25 19:00 Review of Systems Review of Systems ROS: Yes All systems reviewed with the patient and are negative except as otherwise documented Exam Vital Signs (past 8 hours): - 04/01/25 18:55 04/01/25 18:55 04/01/25 19:00 Temperature 97.3 F L Pulse Rate 151 H 151 H Respiratory Rate 22 Blood Pressure 175/123 H 175/123 H Pulse Oximetry 96 97 Oxygen Delivery Method Room Air Fraction of Inspired Oxygen 04/01/25 19:04 04/01/25 19:09 04/01/25 19:09 Temperature Pulse Rate 151 H 152 H Respiratory Rate 29 H 24 Blood Pressure 177/135 H Pulse Oximetry 96 Oxygen Delivery Method Fraction of Inspired Oxygen 04/01/25 19:30 04/01/25 19:30 04/01/25 19:58 Temperature Pulse Rate 152 H Respiratory Rate 25 H Blood Pressure 183/135 H 171/124 H Pulse Oximetry 96 Oxygen Delivery Method Fraction of Inspired Oxygen 04/01/25 19:58 04/01/25 20:00 04/01/25 20:00 Temperature Pulse Rate 153 H 143 H Respiratory Rate 24 23 Blood Pressure 164/108 H Pulse Oximetry 95 93 Oxygen Delivery Method Fraction of Inspired Oxygen 04/01/25 20:05 04/01/25 20:05 04/01/25 20:11 Temperature Pulse Rate 130 H 144 H Respiratory Rate 23 23 Blood Pressure 159/106 H Pulse Oximetry 93 95 Oxygen Delivery Method Fraction of Inspired Oxygen 04/01/25 20:11 04/01/25 20:15 04/01/25 20:15 Temperature Pulse Rate 122 H Respiratory Rate 22 Blood Pressure 182/113 H 172/91 H Pulse Oximetry 94 Oxygen Delivery Method Fraction of Inspired Oxygen 04/01/25 20:20 04/01/25 20:20 04/01/25 20:25 Temperature Pulse Rate 140 H Respiratory Rate 22 Blood Pressure 182/88 H 182/90 H Pulse Oximetry 94 Oxygen Delivery Method Fraction of Inspired Oxygen 04/01/25 20:25 04/01/25 20:30 04/01/25 20:30 Temperature Pulse Rate 141 H 141 H Respiratory Rate 23 23 Blood Pressure 177/92 H Pulse Oximetry 93 93 Oxygen Delivery Method Fraction of Inspired Oxygen 04/01/25 20:36 04/01/25 20:36 04/01/25 20:42 Temperature Pulse Rate 143 H 139 H Respiratory Rate 23 23 Blood Pressure 186/153 H Pulse Oximetry 93 94 Oxygen Delivery Method Fraction of Inspired Oxygen 04/01/25 20:42 04/01/25 20:45 04/01/25 20:45 Temperature Pulse Rate 135 H Respiratory Rate 23 Blood Pressure 135/97 H 120/94 H Pulse Oximetry 94 Oxygen Delivery Method Fraction of Inspired Oxygen 04/01/25 20:51 04/01/25 20:51 04/01/25 20:57 Temperature Pulse Rate 138 H Respiratory Rate 22 Blood Pressure 118/87 142/103 H Pulse Oximetry 95 Oxygen Delivery Method Fraction of Inspired Oxygen 04/01/25 20:57 04/01/25 21:18 04/01/25 21:21 Temperature Pulse Rate 142 H 137 H Respiratory Rate 24 23 Blood Pressure 197/135 H Pulse Oximetry 97 93 Oxygen Delivery Method Fraction of Inspired Oxygen 04/01/25 21:21 04/01/25 21:25 04/01/25 21:25 Temperature Pulse Rate 141 H 140 H Respiratory Rate 22 24 Blood Pressure 174/121 H Pulse Oximetry 96 96 Oxygen Delivery Method Fraction of Inspired Oxygen 04/01/25 21:30 04/01/25 21:30 04/01/25 21:35 Temperature Pulse Rate 140 H 140 H Respiratory Rate 27 H 22 Blood Pressure 167/103 H Pulse Oximetry 96 98 Oxygen Delivery Method Fraction of Inspired Oxygen 04/01/25 21:35 04/01/25 21:36 04/01/25 21:45 Temperature Pulse Rate 148 H Respiratory Rate 21 Blood Pressure 155/103 H 167/103 H Pulse Oximetry 96 Oxygen Delivery Method Fraction of Inspired Oxygen 30 04/01/25 21:45 04/01/25 22:00 04/01/25 22:00 Temperature Pulse Rate 150 H Respiratory Rate 35 H Blood Pressure 139/87 145/102 H Pulse Oximetry 96 Oxygen Delivery Method BiPAP Fraction of Inspired Oxygen 04/01/25 22:16 04/01/25 22:16 04/01/25 22:30 Temperature Pulse Rate 150 H 150 H Respiratory Rate 39 H 29 H Blood Pressure 148/108 H Pulse Oximetry 96 96 Oxygen Delivery Method Fraction of Inspired Oxygen 04/01/25 22:30 04/01/25 23:00 04/01/25 23:13 Temperature Pulse Rate 152 H Respiratory Rate Blood Pressure 152/92 H 166/109 H Pulse Oximetry 97 Oxygen Delivery Method Fraction of Inspired Oxygen 04/01/25 23:13 04/01/25 23:18 04/01/25 23:18 Temperature Pulse Rate 150 H 151 H Respiratory Rate 22 2 L Blood Pressure 136/102 H Pulse Oximetry 96 Oxygen Delivery Method Fraction of Inspired Oxygen 04/01/25 23:30 04/01/25 23:31 04/01/25 23:31 Temperature Pulse Rate 150 H 150 H Respiratory Rate 21 22 Blood Pressure 135/91 H Pulse Oximetry 96 96 Oxygen Delivery Method Fraction of Inspired Oxygen 04/02/25 00:00 04/02/25 00:00 04/02/25 00:02 Temperature Pulse Rate 150 H Respiratory Rate 21 Blood Pressure 165/113 H 159/112 H Pulse Oximetry 96 Oxygen Delivery Method Fraction of Inspired Oxygen 04/02/25 00:02 04/02/25 00:24 04/02/25 00:24 Temperature Pulse Rate 150 H 134 H Respiratory Rate 19 20 Blood Pressure 160/106 H Pulse Oximetry 95 96 Oxygen Delivery Method Fraction of Inspired Oxygen 04/02/25 00:26 04/02/25 00:30 04/02/25 00:34 Temperature Pulse Rate 130 H 129 H 128 H Respiratory Rate 21 21 Blood Pressure Pulse Oximetry 95 95 Oxygen Delivery Method Fraction of Inspired Oxygen 04/02/25 00:34 04/02/25 01:00 04/02/25 01:18 Temperature Pulse Rate 120 H 135 H Respiratory Rate Blood Pressure 128/100 H 141/95 H 122/94 H Pulse Oximetry Oxygen Delivery Method Fraction of Inspired Oxygen Fraction of Inspired Oxygen 30 Oxygen Delivery Method BiPAP Narrative Exam Narrative: Physical Exam: GENERAL: The patient is not in any acute distressed. Awake and alert. HEENT: Nonicteric sclerae, PERRLA, EOMI. Oropharynx clear. Moist mucous membranes. Conjunctivae appear well perfused. HEART: Slight tachycardia with irre/irreg rhythm without murmurs. No lower extremities edema. LUNGS: Clear to auscultation bilaterally. No wheezing, crackles or rhonchi ABDOMEN: Soft, positive bowel sounds, nontender. SKIN: No rash, no excessive bruising, petechiae, or purpura. NEUROLOGIC: AxO x 3. Cranial nerves II-XII intact without motor/sensory deficit. Objective Labs 04/01/25 19:08 04/01/25 19:08 Labs: Laboratory Results - last 24 hr 04/01/25 04/01/25 04/01/25 19:08 19: 19:54 WBC 6.4 RBC 4.67 Hgb 13.4 L Hct 40.8 L MCV 87.3 MCH 28.8 MCHC 33.0 RDW 15.1 H Plt Count 248 Neut % (Auto) 70.8 Lymph % (Auto) 19.5 L [place] % (Auto) 8.0 Eos % (Auto) 0.8 L Baso % (Auto) 0.9 Neut # (Auto) 4500 Lymph # (Auto) 1200 [place] # (Auto) 500 Eos # (Auto) 100 Baso # (Auto) 100 PT INR APTT VBG pH 7.40 VBG pCO2 43.8 L VBG pO2 30 L VBG HCO3 27 VBG Total CO2 26 VBG O2 Saturation 58 L VBG Base Excess 2.0 FiO2 % 21.0 % Sodium 141 Potassium 4.4 Chloride 105 Carbon Dioxide 29 BUN 10 Creatinine 1.06 Estimated GFR > 60 BUN/Creatinine Ratio 9.4 Glucose 208 H Calcium 8.8 Total Bilirubin 0.7 AST 32 ALT 20 Alkaline Phosphatase 121 Total Creatine Kinase 146 Troponin I 0.088 H NT-Pro-B Natriuret Pep 1860 H Total Protein 6.6 Albumin 4.0 Globulin 2.6 Albumin/Globulin Ratio 1.5 04/01/25 04/02/25 22:10 00:58 WBC RBC Hgb Hct MCV MCH MCHC RDW Plt Count Neut % (Auto) Lymph % (Auto) [place] % (Auto) Eos % (Auto) Baso % (Auto) Neut # (Auto) Lymph # (Auto) [place] # (Auto) Eos # (Auto) Baso # (Auto) PT 12.0 INR 1.1 APTT 32 VBG pH VBG pCO2 VBG pO2 VBG HCO3 VBG Total CO2 VBG O2 Saturation VBG Base Excess FiO2 % Sodium Potassium Chloride Carbon Dioxide BUN Creatinine Estimated GFR BUN/Creatinine Ratio Glucose Calcium Total Bilirubin AST ALT Alkaline Phosphatase Total Creatine Kinase Troponin I 0.090 H NT-Pro-B Natriuret Pep Total Protein Albumin Globulin Albumin/Globulin Ratio Assessment & Plan Assessment & Plan narrative: New onset of atrial fibrillation with RVR. Admit the patient to ICU. Continue diltiazem drip. Continue Eliquis. Will get echocardiogram in the morning. Rate is improving now on diltiazem drip. Will check a TSH if nothing was done recently. Pulmonary edema and signs of volume overload on CT of the chest. Likely related to atrial fibrillation RVR. Wondering if there is underlying heart failure. BNP in the 1800. Continue diuresing with IV Lasix 40 mg IV every 8 hours. Strict I's and O and daily weight. Mild elevated troponin. 0.01 increased to 0.08 and 0.09 ultimately. Continue to trend until peak. Likely from demand ischemia. EKG shows no sign of ischemia. Echocardiogram pending Eds-nyenomr-bwxdmxand diabetes. Glucose in the 200s. Hold oral diabetic medication. Subcu insulin and monitor glucose closely. Hypertension. Monitor blood pressure and resume home medication accordingly. History of stroke with known left-sided weakness. PT OT. Resume home medication. BPH. Resume home Flomax. DVT prophylaxis Eliquis. CODE STATUS full code. Disposition likely home in 2 to 3 days - As the provider of this telehealth evaluation, requested by the patient's evaluating physician, I attest that I introduced myself to the patient, provided my credentials and determined that telemedicine via a real-time, 2 way interactive audio and video platform is an appropriate and effective means of providing this service. - I reviewed the patient's chart and had a discussion with the member of the patient's treatment team. - The patient and I mutually agreed with continuation of this evaluation via telemedicine. The patient consented for the telemedicine evaluation. - This virtual encounter was taken place from [place] by Dr. Howard Reeves. The patient was evaluated at [facility]. The encounter was approximately 35 minutes. The nurse was present during the entire time of the encounter and was able to move the stethoscope in appropriate directions. Time-Based Coding :: [TOTAL MINUTES] spent with patient and on the chart (including review of chart, obtaining history, exam, reviewing outside data, placing orders, documenting exam and treatment plan, and counseling patient) on [DATE].
[2025-04-02] MEDS: ALBUTEROL 2.5 MG/3 ML NEB (ADULT) INH ×2 (04:12→08:55)
[2025-04-02 05:16] LABS: Add Manual Diff / Slide Review NO; Hematocrit 42.1 % (41-53); Hemoglobin 13.8 g/dL (13.5-17.5); Lymphocytes Absolute Auto 1100 /uL (1100-4500); Mean Corpuscular HGB Conc 32.8 % (30-36); Mean Corpuscular Hemoglobin 28.6 PG (26-34); Mean Corpuscular Volume 87.2 fL (80-100); Platelet Count 277 X10^3/uL (150-400)
[2025-04-02 05:40] LABS: Troponin I 0.114 ng/mL (0.01-0.034)
[2025-04-02 05:53] LABS: Alanine Aminotransferase 20 IU/L (<50); Albumin 4.1 g/dL (3.5-5.0); Albumin Globulin Ratio 1.7 (1.0-2.8); Alkaline Phosphatase 129 U/L (38-126); Blood Urea Nitrogen 12 mg/dL (9-20); Calcium 9.1 mg/dL (8.4-10.2); Carbon Dioxide 24 mmol/L (22-32); Chloride 104 mmol/L (98-107); Estimated Glomerular Filt Rate > 60 mL/min (>60); Globulin 2.4 g/dL (1.7-4.1); Glucose 195 mg/dL (70-99); HEMOLYSIS < 15 (0-50); Potassium 4.6 mmol/L (3.4-5.1); Sodium 140 mmol/L (137-145); Total Protein 6.5 g/dL (6.3-8.2)
[2025-04-02 06:11] LABS: MRSA (Nasal) PCR NOT DETECTED (Not Detect)
--- NOTE | 2025-04-02 08:22 | PM.HP.1 ---
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 Per the patient's report, over the past week, the patient has feel a little drowsy and was concerned that he might have another stroke. The patient also started to have some shortness of breath and palpitation with chest tightness but denies any lower extremity edema. The patient also denies any recent fever, chills, nausea, vomiting, diarrhea or coughing. In the emergency room, the patient was hemodynamically stable although was in A-fib new onset RVR. The patient initially was given multiple doses of adenosine followed by diltiazem drip. The patient troponin initially was 0.01 and then increased to 0.08 and then ultimately 0.09. Cardiology was consulted and recommended to admit the patient for rate control and thinks that this elevated troponin is likely due to demand ischemia from A-fib RVR. The patient also has signs of volume overload and was given IV Lasix 40 mg x 1. Apixaban was also initiated with aspirin. The patient was saturating well on room air per ER physician. Glucose was in the 200s and BNP 1800. Also CT angio of the chest shows no PE but signs of pulmonary edema with small to moderate bilateral effusion. S: His primary symptom has been progressive dyspnea on exertion, and then dyspnea, and weakness. Imaging included CTA of the chest and chest x-ray. Both suggested pulmonary edema and fluid overload. There was no evidence of pulmonary embolism. There is also no evidence of focal infiltrates suggestive of pneumonia. He denies any leg edema or pronounced orthopnea. He does have a stress cardiomyopathy in the past. He continues to have rapid response to his AFib. He was no knowledge of a previous history of atrial fibrillation. He states he was placed on blood thinners for his stress cardiomyopathy. [facility] Medical History Obesity (BMI 30.0-34.9) Trigeminal neuralgia Kidney stones Gout Hyperlipidemia Hemiparesis affecting left side as late effect of cerebrovascular accident (CVA) CVA (cerebral vascular accident) Hypertension Surgical History History of incision and drainage History of excision of mass Status post gastric bypass for obesity History of excision of pilonidal cyst Family History Father Stroke Dementia Mother Cancer Social History household members: spouse and children Smoking Status: Never smoker alcohol intake: former Meds Home Medications and Allergies Home Medications ?Medication ?Instructions ?Recorded ?Confirmed ?Type amlodipine 10 mg tablet 10 mg PO DAILY 02/13/20 04/01/25 History allopurinol 300 mg tablet 300 mg PO DAILY 02/17/20 04/01/25 History atorvastatin 80 mg tablet 80 mg PO DAILY #30 tabs 11/27/21 04/01/25 Rx empagliflozin 25 mg tablet 25 mg PO DAILY 11/27/21 04/01/25 History metformin 1,000 mg tablet 1,000 mg PO BID 11/27/21 04/01/25 History albuterol 90 mcg/actuation aerosol 90 mcg inhalation Q4-6H PRN 04/01/25 04/01/25 History inhaler shortness of breath calcium 600 mg (as 2 cap PO DAILY 04/01/25 04/01/25 History carbonate)-vitamin D3 5 mcg (200 unit) capsule (Calcium 600 + D(3)) cholecalciferol (vitamin D3) 25 1,000 unit PO DAILY 04/01/25 04/01/25 History mcg (1,000 unit) capsule clonidine 0.3 mg/24 hr weekly 1 patch transdermal QWEEK 04/01/25 04/01/25 History transdermal patch ([id number]) empagliflozin 12.5 mg-metformin 1 tab PO BID 04/01/25 04/01/25 History 1,000 mg tablet losartan 100 mg tablet 100 mg PO DAILY 04/01/25 04/01/25 History mirtazapine 30 mg tablet (Remeron) 30 mg PO BEDTIME 04/01/25 04/01/25 History tamsulosin 0.4 mg capsule 0.4 mg PO BEDTIME 04/01/25 04/01/25 History venlafaxine 150 mg tablet,extended 150 mg PO DAILY 04/01/25 04/01/25 History release 24 hr Allergies Allergy/AdvReac Type Severity Reaction Status Date / Time Penicillins Allergy Severe Anaphylaxis Verified 04/01/25 19:00 Review of Systems Review of Systems Narrative: All else reviewed and otherwise unremarkable except as noted in the history and physical. Exam Vital Signs (past 8 hours): - 04/02/25 00:24 04/02/25 00:24 04/02/25 00:26 Pulse Rate 134 H 130 H Respiratory Rate 20 Blood Pressure 160/106 H Pulse Oximetry 96 Oxygen Delivery Method Oxygen Flow Rate Fraction of Inspired Oxygen 04/02/25 00:30 04/02/25 00:34 04/02/25 00:34 Pulse Rate 129 H 128 H Respiratory Rate 21 21 Blood Pressure 128/100 H Pulse Oximetry 95 95 Oxygen Delivery Method Oxygen Flow Rate Fraction of Inspired Oxygen 04/02/25 01:00 04/02/25 01:00 04/02/25 01:04 Pulse Rate 120 H 130 H Respiratory Rate 43 H Blood Pressure 141/95 H 141/95 H Pulse Oximetry 94 Oxygen Delivery Method Room Air Oxygen Flow Rate Fraction of Inspired Oxygen 04/02/25 01:04 04/02/25 01:15 04/02/25 01:15 Pulse Rate 122 H 132 H Respiratory Rate 25 H 31 H Blood Pressure 122/94 H Pulse Oximetry 93 91 Oxygen Delivery Method Oxygen Flow Rate Fraction of Inspired Oxygen 04/02/25 01:18 04/02/25 01:30 04/02/25 01:30 Pulse Rate 135 H 128 H Respiratory Rate 25 H Blood Pressure 122/94 H 147/101 H Pulse Oximetry 92 Oxygen Delivery Method Oxygen Flow Rate Fraction of Inspired Oxygen 04/02/25 01:45 04/02/25 01:45 04/02/25 01:47 Pulse Rate 117 H Respiratory Rate 30 H Blood Pressure 144/102 H Pulse Oximetry 95 Oxygen Delivery Method Room Air Nasal Cannula Oxygen Flow Rate Fraction of Inspired Oxygen 04/02/25 02:00 04/02/25 02:30 04/02/25 02:30 Pulse Rate 123 H 118 H Respiratory Rate 43 H 23 Blood Pressure 128/89 Pulse Oximetry 91 93 Oxygen Delivery Method Oxygen Flow Rate Fraction of Inspired Oxygen 04/02/25 03:00 04/02/25 03:00 04/02/25 03:30 Pulse Rate 127 H 92 H Respiratory Rate 23 Blood Pressure 132/82 Pulse Oximetry 93 Oxygen Delivery Method Room Air Oxygen Flow Rate Fraction of Inspired Oxygen 04/02/25 03:33 04/02/25 03:33 04/02/25 03:38 Pulse Rate 132 H 133 H Respiratory Rate 20 21 Blood Pressure 143/97 H 150/104 H Pulse Oximetry 92 94 Oxygen Delivery Method Oxygen Flow Rate 2 2 Fraction of Inspired Oxygen 04/02/25 03:52 04/02/25 04:01 04/02/25 04:15 Pulse Rate 132 H 130 H 130 H Respiratory Rate 36 H 32 H 28 H Blood Pressure 140/81 115/79 Pulse Oximetry 93 92 94 Oxygen Delivery Method Room Air Oxygen Flow Rate 2 2 Fraction of Inspired Oxygen 21 04/02/25 04:15 04/02/25 04:20 04/02/25 04:35 Pulse Rate 129 H 129 H 125 H Respiratory Rate 27 H 32 H 25 H Blood Pressure 125/86 130/81 135/92 H Pulse Oximetry 93 94 95 Oxygen Delivery Method Oxygen Flow Rate 2 2 2 Fraction of Inspired Oxygen 04/02/25 04:40 04/02/25 04:45 04/02/25 04:53 Pulse Rate 125 H 125 H 122 H Respiratory Rate 22 22 27 H Blood Pressure 140/102 H 147/96 H 116/84 Pulse Oximetry 100 95 95 Oxygen Delivery Method Oxygen Flow Rate 2 2 2 Fraction of Inspired Oxygen 04/02/25 05:01 04/02/25 05:30 04/02/25 06:02 Pulse Rate 127 H 123 H 128 H Respiratory Rate 23 19 32 H Blood Pressure 129/98 H 105/65 129/82 Pulse Oximetry 96 91 95 Oxygen Delivery Method Oxygen Flow Rate 2 2 2 Fraction of Inspired Oxygen 04/02/25 06:30 Pulse Rate 129 H Respiratory Rate 21 Blood Pressure 127/81 Pulse Oximetry 94 Oxygen Delivery Method Oxygen Flow Rate 2 Fraction of Inspired Oxygen Fraction of Inspired Oxygen 21 SaO2/FiO2 Ratio 442 Oxygen Delivery Method Room Air Oxygen Flow Rate 2 Narrative Exam Narrative: NAD, alert and oriented, fluent speech, calm. On O2. Normocephalic skull, EOMI, anicteric sclera, symmetric pupils. Oropharynx unremarkable, no droop. Neck supple, midline trachea, no adenopathy. Lungs clear, normal rate and effort. Diminished breath sounds in the bases. Heart irregular, no murmur gallop or rub. Tachycardic. Abdomen is soft, non distended and non tender. Extremities are free of edema. Skin is free of rash or lesions. Joints are not swollen or deformed. Judgment appears to be normal. Objective ECG Impression: Atrial fibrillation with rapid ventricular response Nonspecific T wave abnormality Imaging Chest x-ray: Radiologist's impression: Cardiomegaly. Diffuse bilateral interstitial prominence which may represent pulmonary edema/CHF, atypical infection, or chronic interstitial lung disease. No dense consolidation seen. CT scan - chest: Radiologist's impression: 1. No definite signs of pulmonary emboli allowing for significant breathing motion artifact. 2. Findings of significant interstitial and alveolar pulmonary edema, with small to moderate bilateral pleural effusions. Labs 04/02/25 04:12 04/02/25 04:12 Labs: Laboratory Results - last 24 hr 04/01/25 04/01/25 04/01/25 19:08 19:28 19:54 WBC 6.4 RBC 4.67 Hgb 13.4 L Hct 40.8 L MCV 87.3 MCH 28.8 MCHC 33.0 RDW 15.1 H Plt Count 248 Neut % (Auto) 70.8 Lymph % (Auto) 19.5 L Charlton % (Auto) 8.0 Eos % (Auto) 0.8 L Baso % (Auto) 0.9 Neut # (Auto) 4500 Lymph # (Auto) 1200 Charlton # (Auto) 500 Eos # (Auto) 100 Baso # (Auto) 100 PT INR APTT VBG pH 7.40 VBG pCO2 43.8 L VBG pO2 30 L VBG HCO3 27 VBG Total CO2 26 VBG O2 Saturation 58 L VBG Base Excess 2.0 FiO2 % 21.0 % Sodium 141 Potassium 4.4 Chloride 105 Carbon Dioxide 29 BUN 10 Creatinine 1.06 Estimated GFR > 60 BUN/Creatinine Ratio 9.4 Glucose 208 H Calcium 8.8 Total Bilirubin 0.7 AST 32 ALT 20 Alkaline Phosphatase 121 Total Creatine Kinase 146 Troponin I 0.088 H NT-Pro-B Natriuret Pep 1860 H Total Protein 6.6 Albumin 4.0 Globulin 2.6 Albumin/Globulin Ratio 1.5 Nasal Screen MRSA (PCR) 04/01/25 04/02/25 04/02/25 22:10 00:58 03:30 WBC RBC Hgb Hct MCV MCH MCHC RDW Plt Count Neut % (Auto) Lymph % (Auto) Charlton % (Auto) Eos % (Auto) Baso % (Auto) Neut # (Auto) Lymph # (Auto) Charlton # (Auto) Eos # (Auto) Baso # (Auto) PT 12.0 INR 1.1 APTT 32 VBG pH VBG pCO2 VBG pO2 VBG HCO3 VBG Total CO2 VBG O2 Saturation VBG Base Excess FiO2 % Sodium Potassium Chloride Carbon Dioxide BUN Creatinine Estimated GFR BUN/Creatinine Ratio Glucose Calcium Total Bilirubin AST ALT Alkaline Phosphatase Total Creatine Kinase Troponin I 0.090 H NT-Pro-B Natriuret Pep Total Protein Albumin Globulin Albumin/Globulin Ratio Nasal Screen MRSA (PCR) Not detected 04/02/25 04:12 WBC 8.2 RBC 4.82 Hgb 13.8 Hct 42.1 MCV 87.2 MCH 28.6 MCHC 32.8 RDW 15.3 H Plt Count 277 Neut % (Auto) 78.5 H Lymph % (Auto) 12.9 L Charlton % (Auto) 7.6 Eos % (Auto) 0.4 L Baso % (Auto) 0.6 Neut # (Auto) 6500 Lymph # (Auto) 1100 Charlton # (Auto) 600 Eos # (Auto) 0 Baso # (Auto) 0 PT INR APTT VBG pH VBG pCO2 VBG pO2 VBG HCO3 VBG Total CO2 VBG O2 Saturation VBG Base Excess FiO2 % Sodium 140 Potassium 4.6 Chloride 104 Carbon Dioxide 24 BUN 12 Creatinine 1.23 Estimated GFR > 60 BUN/Creatinine Ratio 9.8 Glucose 195 H Calcium 9.1 Total Bilirubin 0.7 AST 24 ALT 20 Alkaline Phosphatase 129 H Total Creatine Kinase Troponin I 0.114 H NT-Pro-B Natriuret Pep Total Protein 6.5 Albumin 4.1 Globulin 2.4 Albumin/Globulin Ratio 1.7 Nasal Screen MRSA (PCR) Assessment & Plan Assessment & Plan narrative: 1. Pulmonary edema and signs of volume overload on CT of the chest. Likely related to atrial fibrillation RVR. Wondering if there is underlying heart failure. BNP in the 1800. Continue diuresing with IV Lasix 40 mg IV every 8 hours. Strict I's and O and daily weight. 2. Mild elevated troponin. 0.01 increased to 0.08 and 0.09 ultimately. Continue to trend until peak. Likely from demand ischemia. EKG shows no sign of ischemia. Echocardiogram pending 3. Lzl-etobxfg-pdizrbihz diabetes. Glucose in the 200s. Hold oral diabetic medication. Subcu insulin and monitor glucose closely. 4. Hypertension. Monitor blood pressure and resume home medication accordingly. 5. History of multiple strokes with known chronic left-sided weakness. PT OT. Resume home medication. 6. BPH. Resume home Flomax. PLAN: -rate controlled with metoprolol. -continue IV diuretic Lasix for diuresis -wean oxygen as able -2D echo to assess overall EF as well as look for wall motion abnormalities or evidence of recurrent stress cardiomyopathy. Anticipate 2 midnights in the hospital, supports inpatient status. DVT prophylaxis Eliquis. CODE STATUS full code. Time-Based Coding :: [TOTAL MINUTES] spent with patient and on the chart (including review of chart, obtaining history, exam, reviewing outside data, placing orders, documenting exam and treatment plan, and counseling patient) on [DATE]. Quality VTE Deep Vein Thrombosis/Pulmonary Embolism Present on Admission: No
[2025-04-02] MEDS: ATORVASTATIN 20 MG TABLET 80 MG PO (08:29)
[2025-04-02] MEDS: ASPIRIN EC 81 MG TABLET PO (08:30)
[2025-04-02] MEDS: VENLAFAXINE ER 75 MG CAP 150 MG PO (08:30)
[2025-04-02] MEDS: INSULIN GLARGINE 100 UNIT/ML 3ML PEN 10 UNIT SUBCUT (08:30)
[2025-04-02] MEDS: INSULIN LISPRO 100 UNIT/ML 3ML VIAL SUBCUT ×4 (08:30→20:20)
[2025-04-02] MEDS: SODIUM CHLORIDE 0.9% FLUSH 10 ML IV ×2 (08:49→20:20)
[2025-04-02] MEDS: FUROSEMIDE 40 MG/4 ML VIAL IV ×2 (08:49→16:55)
[2025-04-02] MEDS: METOPROLOL IR 25 MG TABLET PO ×2 (12:37→20:20)
--- NOTE | 2025-04-02 15:24 | CM.DANOTE ---
Patient is a 59 yo male who was admitted on 04/02/25 for SOB. Pt has [employer] for insurance and his PCP is Dr. Bony Mills at [facility]. EMR was reviewed. Per , pt with hx of CVA x5 and admitted now with AFIB/RVR and Echo to determine likely new CHF/fluid overload and currently on dilt drip and 7LO2. SW met bedside with pt and explained role and pt confirms he lives in [place] with his in a mobile home and adult son currently living in the back in a small structure. Pt states that he has some residual weakness from his CVAs and is able to ambulate without DME but will fatigue quickly and my legs will just give out which is why I have my w/c to use for longer distances. Pt states he is [facility]% [facility] and [facility] help get him any DME or needs covered by the [facility]. Pt currently does not have or need in-home caregivers and spouse is available to assist as needed but she also has osteoporosis and had bilateral hip replacements herself a while ago. No home oxygen at baseline. 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 Per RN, pt has been ambulating independently in room and to the bathroom. No PT needs identified at this time. Plan: SW to follow closely for further diuresis and to wean off oxygen for plan of home with spouse and any further identified discharge planning needs. CARLOS Gar Discharge Planning/Care Management Advanced directive, confirm from FAMILY Start: 04/02/25 05:09 Freq: Q24H Status: Active Protocol: Document 04/02/25 05:09 PRIYANKA (Rec: 04/02/25 05:27 PRIYANKA [id number]) Advance Directive, confirm on record Time 05:27 Person contacted pt Copy received No CM Discharge Assessment Start: 04/02/25 01:47 Freq: Status: Active Protocol: Document 04/02/25 15:19 BF (Rec: 04/02/25 15:21 BF [id number]) Discharge Planning Assessment Assigned Discharge CARLOS Mc Regional Operations Manager DPOA/Assigned spouse Claudia Designee Name Contact Information [phone] Advance Directives? Yes Advance Directives No on File History Provided By Patient,Medical Record Has Patient been No admitted in last 30 days? Comment last admit in 2021 and was able to d/c home Prior Living RV Arrangements Comment Pt lives in mobile home with spouse and son (30 yrs-old ) is staying in the backyard Household Members spouse Type of Relies on Others transporation used prior to admit Independent with ADL Yes 's Is patient alert and Yes oriented? Needs Assistance Managing Medications,Home Chores / Shopping With Caregiver for No Another DME Already Rented / Wheelchair,FWW / Walker Owned Patient/Family Home with Home Health Preference Comment SNF vs HH pending progress Barriers to No Discharge Discharge Plan Home with Home Health Transportation Spouse Arrangement Referrals Initiated None needed Additional Comment Pending progress Whiteboard Updated Yes in Patient Room with name and ext. # of Crusher Assembler Review Status In Process Please Provide Date 04/02/25 Initial DC Assessment Was Performed Next Review Type Continued Stay Review
[2025-04-02] MEDS: TAMSULOSIN 0.4 MG CAPSULE PO (20:20)
[2025-04-02] MEDS: MIRTAZAPINE 15 MG TABLET 30 MG PO (20:20)
[2025-04-03] VITALS (64 sets, daily range): BP systolic 86–155; BP diastolic 54–82; PULSE 68–121; RESP 13–40; TEMP 35.8–36.4; O2SAT 78–98
[2025-04-03] MEDS: FUROSEMIDE 40 MG/4 ML VIAL IV ×3 (00:46→16:57)
[2025-04-03 05:02] LABS: Hematocrit 38.8 % (41-53); Hemoglobin 12.8 g/dL (13.5-17.5); Mean Corpuscular HGB Conc 33.0 % (30-36); Mean Corpuscular Hemoglobin 28.7 PG (26-34); Mean Corpuscular Volume 86.8 fL (80-100); Platelet Count 235 X10^3/uL (150-400)
[2025-04-03 05:11] LABS: Blood Urea Nitrogen 22 mg/dL (9-20); Calcium 8.5 mg/dL (8.4-10.2); Carbon Dioxide 30 mmol/L (22-32); Chloride 102 mmol/L (98-107); Estimated Glomerular Filt Rate > 60 mL/min (>60); Glucose 166 mg/dL (70-99); HEMOLYSIS < 15 (0-50); Magnesium 2.0 mg/dL (1.6-2.3); Potassium 3.7 mmol/L (3.4-5.1); Sodium 140 mmol/L (137-145)
[2025-04-03 05:23] LABS: Troponin I 0.057 ng/mL (0.01-0.034)
--- NOTE | 2025-04-03 08:03 | P.PN_ITS ---
Subjective Subjective Interval history: Summary: Patient was a 59-year-old male on chronic anticoagulation falling a stress cardiomyopathy diagnosis and several strokes years ago. 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 He presented with progressive weakness and shortness a breath and was found to be in florid heart failure with pulmonary edema. An echo obtained on April 02 revealed a significant change in EF from near normal to 20-25%. He had global hypokinesis and has moderate mitral regurgitation. He was not been on chronic beta blockers but has been on losartan 100 daily. He was responded to diuresis and did require BiPAP. The patient is also been in atrial fibrillation with rapid response, which he thinks is new. He was trying to wean off a diltiazem drip as his metoprolol is increased in dose. A Catapres patch was discontinued. S: He feels better today, he was nearly off oxygen. He was having palpitations but denies chest pain. With his diltiazem drip is heart rate is under 100, but he goes up to 120 off the drip. We have increased his metoprolol from 20/5 b.i.d. to 50 b.i.d. starting this morning. He is receiving Lasix q.12 hours. Exam Vital Signs (past 8 hours): - 04/03/25 00:30 04/03/25 01:00 04/03/25 01:00 Temperature Pulse Rate 69 69 Respiratory Rate 18 18 Blood Pressure 89/57 L Pulse Oximetry 94 97 04/03/25 01:30 04/03/25 02:00 04/03/25 02:01 Temperature Pulse Rate 71 71 Respiratory Rate 16 15 Blood Pressure 106/66 Pulse Oximetry 92 92 04/03/25 02:01 04/03/25 02:30 04/03/25 03:00 Temperature 96.9 F L Pulse Rate 70 71 Respiratory Rate 14 14 Blood Pressure Pulse Oximetry 93 93 04/03/25 03:00 04/03/25 03:00 04/03/25 03:30 Temperature Pulse Rate 71 70 Respiratory Rate 16 Blood Pressure 103/62 Pulse Oximetry 98 94 04/03/25 04:00 04/03/25 04:01 04/03/25 04:01 Temperature Pulse Rate 71 70 Respiratory Rate 13 14 Blood Pressure 99/58 L Pulse Oximetry 92 92 04/03/25 04:30 04/03/25 05:00 04/03/25 05:00 Temperature Pulse Rate 69 71 Respiratory Rate Blood Pressure 94/54 L Pulse Oximetry 96 94 04/03/25 05:30 04/03/25 06:00 04/03/25 06:00 Temperature Pulse Rate 71 71 Respiratory Rate 15 Blood Pressure 93/60 Pulse Oximetry 93 95 04/03/25 06:30 04/03/25 07:00 04/03/25 07:00 Temperature Pulse Rate 70 70 Respiratory Rate 21 20 Blood Pressure 87/59 L Pulse Oximetry 96 95 Fraction of Inspired Oxygen 30 SaO2/FiO2 Ratio 300 Oxygen Delivery Method CPAP Oxygen Flow Rate 7 Narrative Exam Narrative: NAD, alert and oriented. Fluent speech. Lungs are clear, normal rate and effort. Diminished breath sounds in the bases. Heart is irregular, no murmur gallop or rub. Abdomen is soft, non distended. Extremities with 1+f edema. Objective ECG Impression: Atrial fibrillation with rapid ventricular response Nonspecific T wave abnormality Imaging Multiple studies:: Radiologist's impression: Chest x-ray: Radiologist's impression: Cardiomegaly. Diffuse bilateral interstitial prominence which may represent pulmonary edema/CHF, atypical infection, or chronic interstitial lung disease. No dense consolidation seen. CT scan - chest: Radiologist's impression: 1. No definite signs of pulmonary emboli allowing for significant breathing motion artifact. 2. Findings of significant interstitial and alveolar pulmonary edema, with small to moderate bilateral pleural effusions. ECHO: 1) Moderately enlarged left ventricle with severely reduced systolic function (EF 20-25%). 2) Mildly enlarged right ventricle with mildly reduced function. 3) There is mild to moderate mitral regurgitation. 4) There are moderate-sized bilateral pleural effusions noted. 5) Compared to the Echo done 03/20/2025, LVEF has decreased from normal to severely reduced on this study. Labs 04/03/25 04:19 04/03/25 04:19 Labs: Laboratory Results - last 24 hr 04/02/25 04/02/25 04/02/25 08:25 11:53 16:39 WBC RBC Hgb Hct MCV MCH MCHC RDW Plt Count Sodium Potassium Chloride Carbon Dioxide BUN Creatinine Estimated GFR BUN/Creatinine Ratio Glucose POC Whole Bld Glucose 143 H 233 H 162 H Calcium Magnesium Troponin I 04/02/25 04/03/25 19:34 04:19 WBC 6.4 RBC 4.47 L Hgb 12.8 L Hct 38.8 L MCV 86.8 MCH 28.7 MCHC 33.0 RDW 15.0 H Plt Count 235 Sodium 140 Potassium 3.7 Chloride 102 Carbon Dioxide 30 BUN 22 H Creatinine 1.25 Estimated GFR > 60 BUN/Creatinine Ratio 17.6 Glucose 166 H POC Whole Bld Glucose 227 H Calcium 8.5 Magnesium 2.0 Troponin I 0.057 H [facility] Medical History Obesity (BMI 30.0-34.9) Trigeminal neuralgia Kidney stones Gout Hyperlipidemia Hemiparesis affecting left side as late effect of cerebrovascular accident (CVA) CVA (cerebral vascular accident) Hypertension Surgical History History of incision and drainage History of excision of mass Status post gastric bypass for obesity History of excision of pilonidal cyst Family History Father Stroke Dementia Mother Cancer Social History household members: spouse Smoking Status: Never smoker alcohol intake: former Assessment & Plan Assessment & Plan narrative: 1. Acute systolic heart failure, present on admission and active. 2. Acute hypoxic respiratory failure, present on admission and improved. 3. Atrial fibrillation with rapid response, possibly new and improving. Denies known history of atrial fibrillation. 4. Demand ischemia, present on admission and active. 5. Bdc-htbmygh-uczqawbyz diabetes. Poorly controlled and active. 6. Hypertension. Chronic and active. 7. History of multiple strokes with known chronic left-sided weakness. On chronic anticoagulation. 8. BPH. Chronic and active. 9. Obesity class 1, chronic and active. 10. Remote history of stress cardiomyopathy, not active. His echo was more consistent with a global hypokinesis then an apical ballooning. PLAN: -increase metoprolol from 20/5 b.i.d. to 50 b.i.d. for improved rate control, wean diltiazem drip. -continue IV diuretic Lasix for diuresis, 40 IV q.12. -wean oxygen as able -out of bed, increase activity. -dietary consult to indicate parameters for low-salt diet. He tends to eat a lot of hamburger helper. -he will need outpatient cardiology initiate aeration. KAYLA: 04/05. He lives in [place], in his . Anticipate 2 midnights in the hospital, supports inpatient status. DVT prophylaxis Eliquis. CODE STATUS full code. Time-Based Coding :: [TOTAL MINUTES] spent with patient and on the chart (including review of chart, obtaining history, exam, reviewing outside data, placing orders, documenting exam and treatment plan, and counseling patient) on [DATE]. Quality VTE Deep Vein Thrombosis/Pulmonary Embolism Present on Admission: No
[2025-04-03] MEDS: LOSARTAN 50 MG TABLET 100 MG PO (08:18)
[2025-04-03] MEDS: APIXABAN 5 MG TABLET PO ×2 (08:18→21:17)
[2025-04-03] MEDS: ATORVASTATIN 20 MG TABLET 80 MG PO (08:20)
[2025-04-03] MEDS: METOPROLOL IR 25 MG TABLET PO ×2 (08:20→09:34)
[2025-04-03] MEDS: VENLAFAXINE ER 75 MG CAP 150 MG PO (08:21)
[2025-04-03] MEDS: SODIUM CHLORIDE 0.9% FLUSH 10 ML IV ×2 (08:21→21:18)
[2025-04-03] MEDS: ASPIRIN EC 81 MG TABLET PO (08:21)
[2025-04-03] MEDS: INSULIN LISPRO 100 UNIT/ML 3ML VIAL SUBCUT ×4 (08:24→21:18)
[2025-04-03] MEDS: INSULIN GLARGINE 100 UNIT/ML 3ML PEN 10 UNIT SUBCUT (08:24)
--- NOTE | 2025-04-03 10:55 | CM.DPC ---
DCP Cont: Per MD, pt making progress and was able to be weaned to room air for a while but likely will need some oxygen on and off today and Echo showed new EF 20%. Tetryl Wringer Operator Cassidy confirmed that she will meet bedside with pt today to discuss dietary recommendations and provide hand outs to patient per MD and pt request. Likely another 1-2 days before stable for discharge. Plan: SW to meet bedside today with pt to discuss if pt meets criteria or wants HH RN/PT for new cardiac issues and dietary recommendations and mobility for plan of home via spouse POV when stable. Jesusita King MSW
--- NOTE | 2025-04-03 12:20 | DIET.CONS ---
Dietary Consultation Note Admission Date: 04/02/2025 00:54 Assessment: 59 y M admitted for SOB, acute systolic heart failure. Dietitian consulted for heart healthy diet educ. per pt request Met with pt at bedside. [place] through, pt also called Claudia, his to be looped in on the discussion. Pt and live in mobile home. focuses on low sodium diet. Pt currently doing lots of frozen or package meals (i.e frozen dumplings, hamburger helper). Interested in using slow cooker more with fresher foods. Wants to move towards less processed meals/cooking. Barriers include fridge/freezer space, kitchen space, and only going grocery shopping 1x/month. Also considering meal delivery service like [employer]. They already chose low sodium options and don't cook with salt. is very sensitive to salt. B-eggs and packaged hash-browns L-leftovers D-frozen/packaged meal 3 regular mountain dews per day Pt reports his last A1c was 7.4%, reports pt's DM is uncontrolled. Pt doesn't know his most recent lipid panel results. Ht: 187.96 cm Wt: 123.2 kg BMI: 34.8 UBW: x Last BM: 04/02/25 (04/02/25 10:33) MNA: 14 Urbano Score: 18 Diet: 04/02/25 Breakfast Carbohydrate Consistent Diet Diet Modifications: Carbohydrate level: Medium (3 CHO) Reflex DM orders: No Food Texture: Level 7 - Regular Liquid Consistency: Level 0 - Thin Heart Healthy Diet Diet Modifications: Sodium Level: 2 gm Sodium Food Texture: Level 7 - Regular Liquid Consistency: Level 0 - Thin Nutrition Percent Meal Consumed 100% 04/02/25 09:23 Labs: RBC 4.47 X10^6/uL (4.5-5.9) L 04/03/25 04:19 Hgb 12.8 g/dL (13.5-17.5) L 04/03/25 04:19 Hct 38.8 % (41-53) L 04/03/25 04:19 Creatinine 1.25 mg/dL (0.66-1.25) 04/03/25 04:19 NT-Pro-B Natriuret Pep 1860 pg/mL (<125) H 04/01/25 19:28 Nutrition Diagnosis: Food and nutrition related knowledge deficit r/t new diagnosis aeb pt requesting education on heart healthy diet Interventions: -Provided MNT on heart healthy educ including: label reading, sodium, saturated fat, fiber, blood glucose control -Provided heart healthy handout and SFA from FDA label reading guide -Created goals and discussed barriers -Pt has dietitian options through the [place], encouraged follow up with a dietitian -Discussed BG monitoring and equipment including: BG ranges, when to take, supplies, CGMs, provided handout on over the counter CGM options per pt interest d/t difficulty getting CGM covered by insurance Goals: -Make dinner via slow cooker starting 2x/wk and increasing as able, if doing meal delivery service, <600 mg per meal of sodium. Provided [employer] as recipes resource -Label read frozen hashbrowns and choose low sodium ones or sub with whole wheat toast -Utilize canned vegs, fruits, and beans d/t limited space and grocery shopping only 1x/month, look for no salt/low sodium options -Stop drinking soda -Take a FBG and postprandial to log and present to endo at appt. Provided log. -[facility] referral from [facility] for [facility] EER: <2000 mg sodium per day Monitoring/Evaluations: f/u PRN Electronically Signed by: Cassidy Clarke 04/03/25 12:20 Clinical Dietitian [address] [id number]
[2025-04-03 14:10] LABS: Hemoglobin A1C% w Est Avg Glu 7.1 % (4.0-6.0)
[2025-04-03] MEDS: MIRTAZAPINE 15 MG TABLET 30 MG PO (21:17)
[2025-04-03] MEDS: METOPROLOL IR 25 MG TABLET 50 MG PO (21:18)
[2025-04-03] MEDS: TAMSULOSIN 0.4 MG CAPSULE PO (21:18)
[2025-04-04] VITALS (43 sets, daily range): BP systolic 89–140; BP diastolic 55–102; PULSE 68–115; RESP 10–47; TEMP 36.2–37.4; O2SAT 89–100
[2025-04-04] MEDS: FUROSEMIDE 40 MG/4 ML VIAL IV ×3 (01:08→16:57)
[2025-04-04 05:56] LABS: Hematocrit 41.6 % (41-53); Hemoglobin 13.6 g/dL (13.5-17.5); Mean Corpuscular HGB Conc 32.6 % (30-36); Mean Corpuscular Hemoglobin 28.4 PG (26-34); Mean Corpuscular Volume 87.2 fL (80-100); Platelet Count 254 X10^3/uL (150-400)
[2025-04-04 06:21] LABS: Blood Urea Nitrogen 24 mg/dL (9-20); Calcium 8.8 mg/dL (8.4-10.2); Carbon Dioxide 30 mmol/L (22-32); Chloride 99 mmol/L (98-107); Estimated Glomerular Filt Rate > 60 mL/min (>60); Glucose 154 mg/dL (70-99); HEMOLYSIS < 15 (0-50); Magnesium 1.6 mg/dL (1.6-2.3); Potassium 3.8 mmol/L (3.4-5.1); Sodium 136 mmol/L (137-145)
[2025-04-04] MEDS: LOSARTAN 50 MG TABLET 100 MG PO (08:20)
[2025-04-04] MEDS: ASPIRIN EC 81 MG TABLET PO (08:20)
[2025-04-04] MEDS: APIXABAN 5 MG TABLET PO (08:20)
[2025-04-04] MEDS: VENLAFAXINE ER 75 MG CAP 150 MG PO (08:20)
[2025-04-04] MEDS: ATORVASTATIN 20 MG TABLET 80 MG PO (08:21)
[2025-04-04] MEDS: METOPROLOL IR 25 MG TABLET 50 MG PO (08:21)
[2025-04-04] MEDS: INSULIN LISPRO 100 UNIT/ML 3ML VIAL SUBCUT ×3 (08:21→16:57)
[2025-04-04] MEDS: INSULIN GLARGINE 100 UNIT/ML 3ML PEN 10 UNIT SUBCUT (08:21)
[2025-04-04] MEDS: SODIUM CHLORIDE 0.9% FLUSH 10 ML IV (08:25)
--- NOTE | 2025-04-04 08:36 | P.PN_ITS ---
Subjective Subjective Interval history: He continues to require rate limiting with IV diltiazem drip overnight. He was started on metoprolol 50 mg b.i.d. and this morning his heart rate is in the 70s so we will try again to wean the drip. His ejection fraction is 20-25%. He is already on Eliquis although he says he does not have a history of atrial fibrillation. In the context of previous strokes that remains somewhat suspicious. 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 He recalls having broken heart syndrome 15 years ago but says he fully recovered. The blood pressure is 106/64 with a heart rate of 115. The CBC and BMP are normal with a glucose of 154. Exam Vital Signs (past 8 hours): - 04/04/25 01:00 04/04/25 01:00 04/04/25 01:30 Pulse Rate 68 68 Respiratory Rate 18 16 Blood Pressure 96/55 L Pulse Oximetry 90 L 89 L Oxygen Delivery Method 04/04/25 02:00 04/04/25 02:02 04/04/25 02:02 Pulse Rate 91 H 79 Respiratory Rate 19 16 Blood Pressure 120/78 Pulse Oximetry 96 96 Oxygen Delivery Method 04/04/25 02:30 04/04/25 03:00 04/04/25 03:00 Pulse Rate 95 H 90 Respiratory Rate 20 18 Blood Pressure Pulse Oximetry 94 95 Oxygen Delivery Method Room Air CPAP 04/04/25 03:01 04/04/25 03:01 04/04/25 03:30 Pulse Rate 108 H 95 H Respiratory Rate 47 H 16 Blood Pressure 124/67 Pulse Oximetry 94 94 Oxygen Delivery Method 04/04/25 04:00 04/04/25 04:02 04/04/25 04:02 Pulse Rate 97 H 94 H Respiratory Rate 17 23 Blood Pressure 113/77 Pulse Oximetry 89 L 91 Oxygen Delivery Method 04/04/25 04:30 04/04/25 05:00 04/04/25 05:00 Pulse Rate 83 77 Respiratory Rate 21 17 Blood Pressure 131/66 Pulse Oximetry 92 93 Oxygen Delivery Method 04/04/25 05:30 04/04/25 06:00 04/04/25 06:01 Pulse Rate 110 H 99 H 87 Respiratory Rate 42 H 15 18 Blood Pressure Pulse Oximetry 94 99 100 Oxygen Delivery Method 04/04/25 06:01 04/04/25 08:00 04/04/25 08:20 Pulse Rate 115 H Respiratory Rate Blood Pressure 137/102 H 106/64 Pulse Oximetry Oxygen Delivery Method CPAP Fraction of Inspired Oxygen 30 SaO2/FiO2 Ratio 300 Oxygen Delivery Method CPAP Oxygen Flow Rate 7 Narrative Exam Narrative: Alert and oriented x3. No apparent distress. Heart is irregularly irregular without murmur Telemetry shows intermittent atrial fibrillation and 3-1 atrial flutter. Lungs are clear to auscultation bilaterally Extremities have no ankle edema Objective Labs 04/04/25 05:43 04/04/25 05:43 Labs: Laboratory Results - last 24 hr 04/03/25 04/03/25 04/03/25 04:19 11:58 16:50 WBC RBC Hgb Hct MCV MCH MCHC RDW Plt Count Sodium Potassium Chloride Carbon Dioxide BUN Creatinine Estimated GFR BUN/Creatinine Ratio Glucose POC Whole Bld Glucose 207 H 166 H Hemoglobin A1c 7.1 H Calcium Magnesium 04/03/25 04/04/25 04/04/25 20:45 05:43 07:59 WBC 5.9 RBC 4.77 Hgb 13.6 Hct 41.6 MCV 87.2 MCH 28.4 MCHC 32.6 RDW 15.1 H Plt Count 254 Sodium 136 L Potassium 3.8 Chloride 99 Carbon Dioxide 30 BUN 24 H Creatinine 1.10 Estimated GFR > 60 BUN/Creatinine Ratio 21.8 Glucose 154 H POC Whole Bld Glucose 193 H 165 H Hemoglobin A1c Calcium 8.8 Magnesium 1.6 [facility] Medical History Obesity (BMI 30.0-34.9) Trigeminal neuralgia Kidney stones Gout Hyperlipidemia Hemiparesis affecting left side as late effect of cerebrovascular accident (CVA) CVA (cerebral vascular accident) Hypertension Surgical History History of incision and drainage History of excision of mass Status post gastric bypass for obesity History of excision of pilonidal cyst Family History Father Stroke Dementia Mother Cancer Social History household members: spouse Smoking Status: Never smoker alcohol intake: former Assessment & Plan Assessment & Plan narrative: 1. Acute systolic heart failure, with distant history of Broken Heart Syndrome, present on admission and active. 2. Acute hypoxic respiratory failure, present on admission and improved. 3. Atrial fibrillation with rapid response, possibly new and improving. Denies known history of atrial fibrillation. 4. Demand ischemia, present on admission and active. 5. Xdz-ghvngqj-gfrqkxkyq diabetes. Poorly controlled and active. 6. Hypertension. Chronic and active. 7. History of multiple strokes with known chronic left-sided weakness. On chronic anticoagulation. 8. BPH. Chronic and active. 9. Obesity class 1, chronic and active. 10. Remote history (15 years) of stress cardiomyopathy, not active. His echo was more consistent with a global hypokinesis then an apical ballooning. 11. VIANCA-Uses CPAP with 02 2L while sleeping PLAN: -increased metoprolol from to 50 b.i.d. yesterday, weaning off diltiazem drip. Increase to 100 mg BID today. -Discussed with Dr. Wade and Dr. Sevilla. Will transfer to [facility] for SWETA and Cardioversion when bed available. -continue IV diuretic Lasix for diuresis, 40 IV q.12. -weaned off oxygen, continues to use while on CPAP -out of bed, increase activity. -dietary consult to indicate parameters for low-salt diet. He tends to eat a lot of hamburger helper. KAYLA: 04/04 or 04/05 transfer for SWETA/Cardioversion. He lives in [place], He is . DVT prophylaxis Eliquis. CODE STATUS full code. Time-Based Coding :: [TOTAL MINUTES] spent with patient and on the chart (including review of chart, obtaining history, exam, reviewing outside data, placing orders, documenting exam and treatment plan, and counseling patient) on [DATE]. Quality VTE Deep Vein Thrombosis/Pulmonary Embolism Present on Admission: No
--- NOTE | 2025-04-04 10:53 | PC.NURSE ---
Addendum entered by Cassie Martell R.N. 04/04/25 18:59: Transport arrived at approximately 1850. Pt able to ambulate to the stretcher, attached to transportation monitoring equipment, pt left with home CPAP, leg brace, and other personal belongings in transport at approximately 1858. Report given at approximately 1900. Addendum entered by Cassie Martell R.N. 04/04/25 17:42: Pt notified of time of transport to [facility], roughly 1845. Pt agreeable to transfer plan, pt made arrangements with family member to last picker personal wheelchair and other belongings not being transferred to [facility]. Attempted to call report to [facility] receiving RN at [phone], unable to reach anyone. Care ongoing. Addendum entered by Cassie Martell R.N. 04/04/25 13:48: Pt declining assistance in bathroom, educated on the risks of independent ambulation with fall risks. Pt continues to decline assistance with bowel movement, currently on toilet with RN in room but unable to visualize after pt shut door. Care ongoing. Original Note: Day shift: pt A&Ox4. Able to use urinal SBA at bedside. Per provider, diltiazem drip paused per provider Dr. Boggs. Hr 60's a flutter. Uses home CPAP while asleep with O2 bleed in 4L. Care ongoing.
[2025-04-04] MEDS: MAGNESIUM CHLORIDE 64 MG TABLET 128 MG PO (12:12)
[2025-04-04] MEDS: INSULIN GLARGINE 100 UNIT/ML 3ML PEN SUBCUT (16:57)
--- NOTE | 2025-04-04 17:07 | P.DS_ITS ---
History of Present Illness History of Present Illness Date Patient Seen: 04/04/25 Time Patient Seen: 17:07 Chief complaint: SoB, History of Strokes Narrative: 59-year-old male with past medical history of CVA x 5 and residual left-sided weakness, hypertension, HLD, BPH, nrf-wukxges-jfspxztjm diabetes and gout presents with complaint of palpitations and shortness of breath. Per the patient's report, over the past week, the patient has feel a little drowsy and was concerned that he might have another stroke. The patient also started to have some shortness of breath and palpitation with chest tightness but denies any lower extremity edema. The patient also denies any recent fever, chills, nausea, vomiting, diarrhea or coughing. In the emergency room, the patient was hemodynamically stable although was in A- fib new onset RVR. The patient initially was given multiple doses of adenosine followed by diltiazem drip. The patient troponin initially was 0.01 and then increased to 0.08 and then ultimately 0.09. Cardiology was consulted and recommended to admit the patient for rate control and thinks that this elevated troponin is likely due to demand ischemia from A-fib RVR. The patient also has signs of volume overload and was given IV Lasix 40 mg x 1. Apixaban was also initiated with aspirin. The patient was saturating well on room air per ER physician. Glucose was in the 200s and BNP 1800. Also CT angio of the chest shows no PE but signs of pulmonary edema with small to moderate bilateral effusion. Discharge Providers Provider Date of admission: 04/02/25 00:54 Discharge Date: 04/04/25 Primary care physician: Doctor Ahbishek MD Discharge provider: Jose Boggs MD Summary Hospital Course Hospital Course: 1. Acute systolic heart failure, with distant history of Broken Heart Syndrome improving 2. Acute hypoxic respiratory failure resolved 3. Atrial fibrillation with rapid response, possibly new and improving. Denies known history of atrial fibrillation. 4. Demand ischemia, resolved with peak Troponin of 0.114 on 04/02. 5. Tuj-xryblck-mqlmefiyq diabetes. Poorly controlled 6. Hypertension. 7. History of multiple strokes with known chronic left-sided weakness. On chronic anticoagulation. 8. BPH. 9. Obesity class 1 10. Remote history (15 years) of stress cardiomyopathy. His echo was more consistent with a global hypokinesis then an apical ballooning. 11. VIANCA-Uses CPAP with 02 2L while sleeping PLAN: -increased metoprolol from to 50 b.i.d. yesterday, weaned off diltiazem drip. Increased to 100 mg BID today. -Discussed with Dr. Wade and Dr. Sevilla. Will transfer to [facility] for SWETA and Cardioversion when bed available. -continue IV diuretic Lasix for diuresis, 40 IV q.12. -weaned off oxygen, continues to use while on CPAP -out of bed, increase activity. -dietary consult to indicate parameters for low-salt diet. He tends to eat a lot of hamburger helper. Today: transfer to [facility] for SWETA/Cardioversion. He lives in [place], He is . DVT prophylaxis Eliquis. CODE STATUS full code. Status at Discharge Cognitive/behavioral status at discharge: at baseline, oriented Functional status at discharge: wheelchair bound Exam Vital Signs (past 8 hours): - 04/04/25 09:35 04/04/25 10:00 04/04/25 10:00 Pulse Rate 83 69 Respiratory Rate 21 20 Blood Pressure 103/69 Pulse Oximetry Oxygen Delivery Method Oxygen Flow Rate 04/04/25 10:30 04/04/25 11:00 04/04/25 11:00 Pulse Rate 68 68 Respiratory Rate 10 L 10 L Blood Pressure 93/57 L Pulse Oximetry 90 L 90 L Oxygen Delivery Method Oxygen Flow Rate 04/04/25 11:00 04/04/25 11:30 04/04/25 12:00 Pulse Rate 69 95 H Respiratory Rate 18 Blood Pressure Pulse Oximetry 96 93 96 Oxygen Delivery Method Oxygen Flow Rate 4 0 04/04/25 12:00 04/04/25 12:00 04/04/25 12:01 Pulse Rate 72 73 Respiratory Rate 17 19 Blood Pressure Pulse Oximetry 94 95 Oxygen Delivery Method Room Air Oxygen Flow Rate 04/04/25 12:01 04/04/25 12:30 04/04/25 13:00 Pulse Rate 99 H 100 H Respiratory Rate 26 H 20 Blood Pressure 140/69 Pulse Oximetry 95 95 Oxygen Delivery Method Oxygen Flow Rate 04/04/25 13:30 04/04/25 14:41 04/04/25 15:00 Pulse Rate 101 H 102 H 111 H Respiratory Rate 19 30 H 25 H Blood Pressure Pulse Oximetry 94 97 Oxygen Delivery Method Oxygen Flow Rate 04/04/25 16:00 Pulse Rate Respiratory Rate Blood Pressure Pulse Oximetry Oxygen Delivery Method Room Air Oxygen Flow Rate Fraction of Inspired Oxygen 30 SaO2/FiO2 Ratio 300 Oxygen Delivery Method Room Air Oxygen Flow Rate 0 Narrative Exam Narrative: Alert and oriented x3. No apparent distress. Heart is irregularly irregular without murmur Telemetry shows intermittent atrial fibrillation and 3-1 atrial flutter. Lungs are clear to auscultation bilaterally Extremities have no ankle edema Objective Labs 04/04/25 05:43 04/04/25 05:43 Labs: Laboratory Results - last 24 hr 04/03/25 04/04/25 04/04/25 20:45 05:43 07:59 WBC 5.9 RBC 4.77 Hgb 13.6 Hct 41.6 MCV 87.2 MCH 28.4 MCHC 32.6 RDW 15.1 H Plt Count 254 Sodium 136 L Potassium 3.8 Chloride 99 Carbon Dioxide 30 BUN 24 H Creatinine 1.10 Estimated GFR > 60 BUN/Creatinine Ratio 21.8 Glucose 154 H POC Whole Bld Glucose 193 H 165 H Calcium 8.8 Magnesium 1.6 04/04/25 04/04/25 12:10 16:29 WBC RBC Hgb Hct MCV MCH MCHC RDW Plt Count Sodium Potassium Chloride Carbon Dioxide BUN Creatinine Estimated GFR BUN/Creatinine Ratio Glucose POC Whole Bld Glucose 211 H 260 H Calcium Magnesium [facility] Medical History Obesity (BMI 30.0-34.9) Trigeminal neuralgia Kidney stones Gout Hyperlipidemia Hemiparesis affecting left side as late effect of cerebrovascular accident (CVA) CVA (cerebral vascular accident) Hypertension Surgical History History of incision and drainage History of excision of mass Status post gastric bypass for obesity History of excision of pilonidal cyst Family History Father Stroke Dementia Mother Cancer Social History household members: spouse Smoking Status: Never smoker alcohol intake: former Discharge Assessment & Plan Assessment and Plan Assessment: He continues to require rate limiting with IV diltiazem drip overnight. He was started on metoprolol 50 mg b.i.d. and the diltiazem was stopped this morning. His ejection fraction is 20-25%. He is already on Eliquis although he says he does not have a history of atrial fibrillation. In the context of previous strokes that remains somewhat suspicious. 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 He recalls having broken heart syndrome 15 years ago but says he fully recovered. The blood pressure is 106/64 with a heart rate of 115. The CBC and BMP are normal with a glucose of 154. Discharge Plan Discharge Plan Patient Disposition: [facility] Other facility: [facility] Under care of provider: Dr. Mendoza Provider Discharge Comment: Transferring for SWETA and Cardioversion Diet/Activity/Treatments Diet: Carb-consistent/Diabetic Liquid consistency: Normal/Thin Food texture: Regular Discharge Data Primary Care Provider: Miscellaneous,Doctor Quality VTE Deep Vein Thrombosis/Pulmonary Embolism Present on Admission: No
== END 2025-04-04 19:00 | disposition short-term general hospital (02) | DRG 308 ==
LOC: ED 19:01 → AC 04-02 00:55 → ICU 04-02 03:23
PROVIDERS: Hospitalist; Admitting Provider Internal Medicine; Emergency Provider Family Medicine; Referring Provider Family Medicine; Visit Provider Internal Medicine
DX: I48.91 Unspecified atrial fibrillation (principal); I50.21 Acute systolic (congestive) heart failure; J96.01 Acute respiratory failure with hypoxia; I24.89 Other forms of acute ischemic heart disease; J81.1 Chronic pulmonary edema; I69.354 Hemiplegia and hemiparesis following cerebral infarction affecting left non-dominant side; I11.0 Hypertensive heart disease with heart failure; E11.9 Type 2 diabetes mellitus without complications; N40.0 Benign prostatic hyperplasia without lower urinary tract symptoms; E66.811 Obesity, class 1; G47.33 Obstructive sleep apnea (adult) (pediatric); Z68.34 Body mass index [BMI] 34.0-34.9, adult; Z86.79 Personal history of other diseases of the circulatory system; Z79.84 Long term (current) use of oral hypoglycemic drugs
CPT/HCPCS: 36415; 71045; 71275; 80048; 80053; 82550; 82805; 82962; 83036; 83735; 83880; 84484; 85025; 85027; 85610; 85730; 87797; 93005; 94640; 94660; 96365; 96366; 96367; 96375; 99285; 99291; C8929; J0153; J0282; J1815; J1938; J3360; J7613; Q9957; Q9967